=== PATIENT | female | born 1935 | race Caucasian/White ===

== ENCOUNTER 2018-09-19 09:40 | Inpatient (IN) ==
[2018-09-19] MEDS ORDERED: DUONEB (A & A) INH ONE (09:51)
--- NOTE | 2018-09-19 10:13 | Diag Imaging Result Doc PS360 ---
EXAM: CHEST-PORTABLE - 09/19/2018 HISTORY: sob TECHNIQUE: Portable chest COMPARISON: 09/14/2018 FINDINGS: There is cardiomegaly similar to prior. There is transvenous cardiac pacemaker again seen. There is mild interstitial edema. There are mild basilar edema and small bilateral pleural effusions. There is no pneumothorax identified. IMPRESSION: Findings which are suggestive of mild congestive heart failure. Electronically signed by Dev Tadeo 09/19/2018 10:11 AM
[2018-09-19 10:14] LABS: BE 4.6 mmoll (-3.0-3.0); BLOOD TYPE ARTERIAL; HCO3-(ACT) 28.4 mmoll (20.0-26.0); METHB 1.2 % (0.0-1.5); O2(CT) 20.5 mL/dL (15.0-23.0); O2HB 94.2 % (95.0-99.0); PCO2(98.6) 42 mmHg (35-45); PO2(98.6) 75 mmHg (60-100); SAMPLE BLOOD; SAO2 97.3 % (95.0-100.0); THB 15.5 g/dL (11.5-17.4); pH(98.6) 7.45 (7.35-7.45)
[2018-09-19 10:17] LABS: ALLEN TEST YES; MODALITY ROOM AIR
[2018-09-19 10:23] LABS: BASO# 0.04 X1000 (0.0-0.2); BASO% 0.6 % (0.0-0.8); EOS# 0.12 X1000 (0.0-0.7); EOS% 1.7 % (0.0-10.0); HEMATOCRIT 44.8 % (37.0-47.0); HEMOGLOBIN 14.4 g/dL (12.0-16.0); IMM GRAN# 0.03 X1000 (0.0-0.04); IMM GRAN% 0.4 % (0.0-0.5); LYMPH# 2.04 X1000 (1.2-3.4); LYMPH% 29.4 % (20.5-51.1); MCH 30.1 PG (27-31); MCHC 32.1 g/dL (33-37); MCV 93.5 FL (81-99); MONO# 0.76 X1000 (0.11-0.59); NEUT# 3.95 X1000 (1.4-6.5); NEUT% 56.9 % (42.2-75.2); PLT 193 X1000 (130-400); RBC 4.79 XMIL (4.2-5.4); RDW 15.3 % (11.5-14.5); WBC 6.94 X1000 (4.8-10.8)
[2018-09-19] MEDS ORDERED: LEVAQUIN 500 MG/D5W 500 MG/100 ML IVPB IV ONE (10:34)
[2018-09-19] MEDS ORDERED: LASIX IV ONE (10:35)
--- NOTE | 2018-09-19 10:52 | PROVIDER DOCUMENTATION ---
This chart was entered by Cory Car Scribe, acting as scribe for Carla Car MD. HPI-Respiratory General - General Chief Complaint: Return/Recheck Stated Complaint: SOB Time Seen by Provider: 09/19/18 09:55 Source: patient, EMS Allergies/Adverse Reactions: Patient Allergies Allergy/AdvReac Type Severity Reaction Status Date / Time No Known Allergies Allergy Verified 10/07/17 14:44 Home Medications: Home Medication List Medication Instructions Recorded Confirmed Last Taken Type Acyclovir 800 mg PO TID 10/07/17 10/07/17 Unknown History Allopurinol 100 mg PO DAILY 10/07/17 10/07/17 Unknown History Amiodarone [Cordarone] 200 mg PO DAILY 10/07/17 10/07/17 Unknown History Atorvastatin Calcium 20 mg PO HS 10/07/17 10/07/17 Unknown History Chlordiazepoxide [Librium] 10 mg PO BID 10/07/17 10/07/17 Unknown History Cholecalciferol (Vit D3) [Vitamin 1,000 unit PO DAILY 10/07/17 10/07/17 Unknown History D] Digoxin 125 mcg PO DAILY 10/07/17 10/07/17 Unknown History Diltiazem HCl [Cardizem] 120 mg PO DAILY 10/07/17 10/07/17 Unknown History Levothyroxine [Synthroid] 25 microgm PO DAILY 10/07/17 10/07/17 Unknown History Methylprednisolone 4 mg PO DIRECTED 10/07/17 10/07/17 Unknown History Metoprolol Succinate E.r. [Toprol 50 mg PO BID 10/07/17 10/07/17 Unknown History Xl] Mineral Oil/Petrolatum Op Oint 1 applicatn OPH PRN PRN 10/07/17 10/07/17 Unknown History [Lacri-Lube Oph Oint] Nitrofurantoin Monohyd/M-Cryst 100 mg PO BID #20 cap 10/07/17 Unknown Rx [Macrobid 100 mg Capsule] [place]-3 Fatty Acids/Fish Oil [Fish 1,000 mg pe PO BID 10/07/17 10/07/17 Unknown History Oil 1,000 mg Capsule] Potassium Chloride 20 meq PO DAILY 10/07/17 10/07/17 Unknown History Spironolactone 25 mg PO DAILY 10/07/17 10/07/17 Unknown History Warfarin [Coumadin] 5 mg PO QHS 10/07/17 10/07/17 Unknown History Furosemide 40 mg PO BID #60 tab 09/14/18 Unknown Rx Guaifenesin/Codeine Phosphate 5 ml PO Q6H PRN #120 ml 09/14/18 Unknown Rx [Codeine-Guaifen 10-100 mg/5 ml] - History of Present Illness-Resp Nature of Presenting Problem: 83 yof hx of afib, CHF, HTN, HLD presents to ed with cc of sob. Reports was seen on 09/14/17 at [facility] with cough and pleural effusion and acute on chronic CHF reports still not feeling any better and getting worse. States has a Nebulizer treatment at home but medication is so hasn't been using it. EMS reports giving pt Albuterol tx enroute. 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 Pt's fam tells me pt able to sit up and breath 1st night out of hosp, but unabl etyo breath well even sitting up last night. Tells me there was no change in her routine medications including lasix. Severity in ED: reports: mild Onset/Duration: reports: 6 days ago Timing: reports: still present Context: reports: out of meds Cough Quality/Degree: reports: productive cough Episode Frequency: occasional episodes Current Respiratory Medication Therapy: Initiated see nurses note Associated Symptoms: reports: cough, shortness of breath, wheezing Similar Symptoms Previously?: Yes Recently seen or treated by another doctor?: Yes (09/14/17 at ER) Review of Systems - Adult - REVIEW OF SYSTEMS - ADULT Constitutional: denies: chills, fever, fatique Eyes: reports: no symptoms reported Ears, Nose, Mouth & Throat: denies: ear pain, sinus problem, throat pain Cardiovascular: denies: chest pain, irregular heart rate, orthopnea, syncope Respiratory: reports: cough, dyspnea on exertion, shortness of breath, wheezing . denies: pleurisy Gastrointestinal: denies: abdominal pain, diarrhea, nausea, vomiting Genitourinary: reports: no symptoms reported Musculoskeletal: reports: no symptoms reported Integumentary: reports: no symptoms reported Neurological: denies: dizziness/vertigo, headache/migraines, numbness, paresthesia, seizure, slurred speech Psychiatric: reports: no symptoms reported Endocrine: reports: no symptoms reported Hematologic/Lymphatic: reports: no symptoms reported Allergic/Immunologic: reports: no symptoms reported All Other Systems: Reviewed and Negative Past History - Adult - PAST MEDICAL HISTORY-ADULT Review of Records: reports: Nursing Assessment Review, Medications Reviewed Major Childhood Illnesses: reports: denies history Cardiovascular: reports: A-Fib, CAD, CHF, HTN, hyperlipidemia Respiratory: reports: denies history Gastrointestinal: reports: denies history Obstetrical/Gynecological: reports: denies history Genitourinary: reports: denies history Musculoskeletal: reports: denies history Neurological: reports: CVA (x 2 in 2006) Psychiatric: reports: anxiety Endocrine/Immune: reports: denies history Other Conditions: reports: denies history - PRIOR SURGERIES/PROCEDURES Surgical/Procedure History: reports: appendectomy, cholecystectomy, pacemaker, hysterectomy, hernia repair, back/neck - PRIOR HOSPITALIZATIONS Prior Hospitalizations: reports: for other non-related - IMMUNIZATION STATUS Childhood Immunizations: See Nurse Assessment Flu Vaccine: See Nurse Assessment - FAMILY HISTORY Family History: reviewed, not pertinent - SOCIAL HISTORY Smoking: non-smoker Substance Use: none/never Physical Exam-General - PHYSICAL EXAM-ADULT Initial Vital Signs Reviewed: Yes - CONSTITUTIONAL General Appearance: appears well, alert, mild distress - EYES Eyes: PERRL/EOMI, pink conjunctivae - HEAD, EARS, NOSE, MOUTH & THROAT HENMT: moist mucous membranes - NECK Neck: non-tender, full range of motion, supple, normal inspection - RESPIRATORY Respiratory: chest non-tender, no pleuratic chest pain, no respiratory distress , no accessory muscle use, wheezing (moderate expiratory). negative: crackles, rales, rhonchi, retractions - CARDIOVASCULAR Cardiovascular: regular rate, rhythm - GASTROINTESTINAL (ABDOMEN) Abdominal Exam: normal bowel sounds, non tender, soft, no organomegaly, no pulsatile mass - MUSCULOSKELETAL Back Exam: normal inspection Extremity: normal range of motion, non-tender, swelling (BLE 1+) - SKIN Integumentary: normal color, normal turgor, warm/dry - NEUROLOGIC Neurologic: grossly normal - PSYCHIATRIC Psych/Mental Status: normal mood/affect, normal thought content, normal thought process, oriented x 3 Progress - PLAN OF CARE/RESULTS Progress/Plan/Lab Results: Vital Signs - 8 hr 09/19/18 09:44 09/19/18 10:00 Temperature 98.1 F Pulse Rate 74 70 Respiratory Rate 20 21 Blood Pressure 153/99 O2 Sat by Pulse Oximetry 97 97 Laboratory Results - last 24 hr 09/19/18 09/19/18 09:47 10:15 WBC 6.94 RBC 4.79 Hgb 14.4 Hct 44.8 MCV 93.5 MCH 30.1 MCHC 32.1 L RDW Std Deviation 15.3 H Plt Count 193 MPV 11.0 H Immature Gran % (Auto) 0.4 Neut % (Auto) 56.9 Lymph % (Auto) 29.4 Peach % (Auto) 11.0 H Eos % (Auto) 1.7 Baso % (Auto) 0.6 Immature Gran # (Auto) 0.03 Neut # (Auto) 3.95 Lymph # (Auto) 2.04 Peach # (Auto) 0.76 H Eos # (Auto) 0.12 Baso # (Auto) 0.04 Specimen Type ARTERIAL Sample Site R RADIAL pH 7.45 pCO2 42 pO2 75 HCO3 28.4 H Base Excess 4.6 H Oxyhemoglobin 94.2 L ABG O2 Sat (Calculated) 20.5 ABG O2 Saturation 97.3 ABG Carboxyhemoglobin 1.90 ABG Methemoglobin 1.2 Doe Test YES A-a O2 Difference 22.0 Total Hemoglobin 15.5 Lactate 1.50 Blood Gas Modality ROOM AIR FiO2 % 21.0 Orders Category Date Time Status Admit - [facility] Routine AdmDCTranf 09/19/18 10:43 Ordered Resuscitation Status Routine Care 09/19/18 10:43 Ordered CHEST-PORTABLE [RAD] Stat Exams 09/19/18 09:52 Completed ABG [RESP] Routine Lab 09/19/18 09:47 Completed BLOOD CULTURE [BLDCUL] Stat Lab 09/19/18 10:28 Ordered CBC WITH DIFF [HEME] Stat Lab 09/19/18 10:15 Completed LACTATE, PLASMA [CHEM] Stat Lab 09/19/18 10:43 Ordered PRO B-NATRIURETIC PEPTIDE Stat Lab 09/19/18 10:42 Ordered Albuterol 2.5MG/Ipratrop 0.5MG [Duoneb (A & A)] Med 09/19/18 09:51 Discontinued 3 ml INH NOW ONE Furosemide [Lasix] Med 09/19/18 10:35 Discontinued 20 mg IV NOW ONE Levofloxacin 500 mg/D5w [Levaquin 500 mg/D5w] Med 09/19/18 10:34 Active 500 mg in 100 ml IV NOW Aerosol Treatments Routine Oth 09/19/18 09:52 Active Aerosol Treatments Stat Oth 09/19/18 09:52 Active EKG [EKG] Stat Ther 09/19/18 09:52 Ordered Transfer/Admit Order [TRANSFER] Routine Transfer 09/19/18 10:42 Ordered Result Diagrams: 09/19/18 10:15 - XRAY 1 XRAY: Bilateral XRAY Study: Chest Impression: Abnormal (cardiomegaly, pacemaker, cannot exclude infiltrate in right base- per carla car), Discussed w/Radiology (cannot exclude pna) Comparison with other Films: changes noted (worse than one compared to 09/14/17) - CONSULTS/PCP/HOSPITALIST Notification #1 *Consult/PCP/Hospitalist*: Dr. Velasco Time Discussed: 10:38 Consult Disposition: Admit Departure - Departure Date of Disposition Decision: 09/19/18 Time of Disposition Decision: 10:34 DIAGNOSIS: CHF exacerbation, SOB (shortness of breath), Wheezing Disposition: ADMITTED INPATIENT 09 Certified Medical Emergency: Emergent Condition: Stable Referrals and Follow-Ups: Jennifer Clark [Primary Care Provider] - - Critical Care Note This patient required my direct & personal management of CC.: No Attestation - Physician/ OTTO Attestation Patient care was provided by Advanced Practice Provider:: No The physician spent face to face time with patient:: Yes Advanced Practice Provider documentation review:: Supervising physician onsite and consulted in the evaluation and care of this patient. The physician did have a face to face encounter with the patient. This chart was documented by the indicated scribe, (Cory Car Scribe) and accurately reflects the services I performed and decisions made by me, Carla Car MD, as attested by the provider's signature.
[2018-09-19 12:10] LABS: CALCIUM 8.7 mg/dL (8.8-10.2); CREATININE 1.4 mg/dL (0.5-0.9); POTASSIUM 4.4 mmol/L (3.5-5.1)
--- NOTE | 2018-09-19 15:23 | HISTORY AND PHYSICAL ---
PRIMARY CARE PHYSICIAN: Dr. Jennifer Clark. HIGH SCHOOL SCIENCE TUTOR: Dr. Yi. CHIEF COMPLAINT: Shortness of breath and a nonproductive cough. HISTORY OF PRESENTING ILLNESS: This is an 83-year-old female who presents to [facility] ER with complaints of shortness of breath and a nonproductive cough. She states she was seen at [facility] ER last Wednesday and was told she had some "fluid around her heart," was given a cough syrup and they increased her Lasix from 20 mg daily to 40 mg daily and they also increased her spironolactone to twice daily, but I do not know that dosage. She states she took the medications as prescribed and has had no improvement in her shortness of breath and cough. Today when she arrived, she was saturating 97% on room air. ER documentation read her chest x-ray as could not exclude an infiltrate in the right base, but that she also had cardiomegaly. Radiology read chest x-ray findings that are suggestive of mild congestive heart failure, so she is being admitted to the medical unit for further evaluation and treatment. PAST MEDICAL HISTORY: Atrial fibrillation, congestive heart failure, hypertension, anxiety, hyperlipidemia, coronary artery disease, CVA x2 in 2006 and chronic kidney disease stage III-B. PAST SURGICAL HISTORY: Appendectomy, cholecystectomy, pacemaker placement, hysterectomy, hernia repair, and a back and neck surgery. FAMILY HISTORY: Reviewed and noncontributory. SOCIAL HISTORY: She lives with family. Denies any tobacco, alcohol or illicit drug use. ALLERGIES: She has no known drug allergies. HOME MEDICATIONS: A current list will be obtained and reviewed, and we will restart after they have been reconciled. Order placed for Nursing to update and confirm home medications. LABORATORY DATA: Showed a white blood cell count of 6.94, hemoglobin 14.4, hematocrit 44.8, platelets 193,000. ABG with a pH of 7.45, pCO2 of 42, PO2 75, bicarb 28.4. Sodium 138, potassium 4.4 chloride 103, CO2 21, BUN of 19, creatinine 1.4, glucose 138. ProBNP of 1939, plasma lactate of 2.3. Chest x-ray: Again, per ER read could not exclude a right lower lobe pneumonia, Impression from Radiology read findings which are suggestive of mild congestive heart failure. REVIEW OF SYSTEMS: She denied any fever, chills, blurred vision, dizziness, chest pain. She has had a nonproductive cough, shortness of breath, wheezing. Denied any abdominal pain, constipation, diarrhea, burning or hurting with urination. PHYSICAL EXAMINATION: VITAL SIGNS: On arrival, she had a temperature of 98.1, pulse 74, respirations 20, blood pressure 153/99, saturating 97% on room air. GENERAL: This is an 83-year-old female who is sitting up in the bed and answers questions appropriately. HEENT: Normocephalic, atraumatic. Normal ENT inspection. Oropharynx and nares are clear. EYES: Pupils are equal, round and reactive to light and accommodation. Extraocular movements are intact. NECK: Normal inspection. Normal range of motion. LUNGS: With wheezing, expiratory throughout entire posterior lung kaplan. Equal lung expansion. Chest wall movement noted. HEART: Regular rate and rhythm. No murmurs, rubs or gallops. ABDOMEN: Soft, nontender, nondistended. Bowel sounds are present x 4 quadrants. MUSCULOSKELETAL: She has 5/5 strength x 4. EXTREMITIES: She does have 1+ edema to her bilateral lower extremities. NEUROLOGIC: The cranial nerves 2-12 appear grossly intact. ASSESSMENT: 1. Acute congestive heart failure exacerbation. 2. Bronchitis. It was suspected in the ER that she had a right lower lobe pneumonia, but radiologist did not find a pneumonia. 3. Shortness of breath. 4. Hypertension. PLAN: She has been admitted to the medical unit. She has an indwelling Burgos catheter. We will update and confirm home medications per Nursing and then will review and restart as appropriate. We will check an echocardiogram. Blood cultures x 2 are pending. We will obtain a UA with C S as indicated. Place her on Levaquin 500 mg IV q. 24, Lasix 40 mg IV daily, DuoNeb q.4 hours. Further orders after being seen by attending. Dictated by BRIANNA Roberts for Wander Velasco MD cc: BRIANNA Roberts MD Faye Wilson, MD
[2018-09-19] MEDS ORDERED: TEARISOL OPH SOLUTION OPH PRN (17:09)
[2018-09-19] MEDS: DUONEB (A & A) INH SCH ×3 (17:19→23:01)
[2018-09-19 17:37] LABS: BILIRUBIN URINE NEGATIVE (NEGATIVE); BLOOD URINE 1+ (NEGATIVE); CLARITY CLEAR (CLEAR); COLOR YELLOW; GLUCOSE URINE NEGATIVE (NEGATIVE); KETONE URINE NEGATIVE (NEGATIVE); LEUKOCYTES URINE 1+ (NEGATIVE); NITRITE URINE NEGATIVE (NEGATIVE); PH URINE 6.5; PROTEIN URINE NEGATIVE (NEGATIVE); UROBILINOGEN URINE 1 mg/dL
[2018-09-19 17:40] LABS: URINE RBC <10 /HPF (<10)
[2018-09-19 17:41] LABS: URINE BACTERIA 1+ /HFP; URINE CAST NONE SEEN /LPF; URINE CRYSTAL NONE SEEN /HPF; URINE EPITHELIAL CELLS <10 /HPF (<10); URINE SMALL ROUND CELLS TRANSITIONAL PRESENT; URINE SOURCE CATH; URINE YEAST NONE SEEN /HPF
--- NOTE | 2018-09-19 18:29 | ECHO REPORT ---
ORDER DATE: 09/19/2018 INDICATIONS: An 83-year-old female, CHF, pacemaker. M-MODE MEASUREMENTS: Left ventricle end diastole: 5.8 cm. Left ventricle end systole: 5.1 cm. Posterior wall: 1.1 cm. Interventricular septum: 1.1 cm. Left atrium: 4.4 cm. Aortic root: 3.4 cm. SUMMARY OF 2-DIMENSIONAL IMAGIN. This study is technically very limited and of limited diagnostic quality. Definity was added to optimize visualization of endocardium. 2. The left ventricular chamber appears to be dilated. Systolic function is significantly impaired. Ejection fraction estimated at 20% to 25%. There were multiple areas of wall motion abnormality. 3. Pacemaker is noted on the right side of the heart. 4. The right ventricle appears to be mildly enlarged. 5. The atria appear to moderately enlarged. 6. Aortic valve shows some thickening of the cusp. Color flow mapping indicates mild degree of regurgitation. 7. Mitral valve shows mild to moderate degree of regurgitation. 8. Pulse wave Doppler of mitral inflow shows single filling wave. The patient is in atrial fibrillation. 9. Tricuspid valve shows mild degree of regurgitation. 10.Pulmonary artery pressure estimated at 37 mmHg. Pulmonic valve is unremarkable with mild degree of regurgitation. 11.There is no pericardial effusion. Clinical correlation recommended. cc: MD Mariana Delarosa CRNP
[2018-09-19 19:04] LABS: INR 2.39; PROTIME 27.2 Seconds (11.0-16.0)
[2018-09-19] MEDS: LIBRIUM PO SCH (21:31)
[2018-09-19] MEDS: LIPITOR PO SCH (21:31)
[2018-09-19] MEDS: COUMADIN PO SCH (21:31)
[2018-09-19] MEDS: FISH OIL CONCENTRATE PO SCH (21:32)
[2018-09-19] MEDS: ALDACTONE PO SCH (21:32)
--- NOTE | 2018-09-19 21:32 | HISTORY AND PHYSICAL ---
ADDENDUM: She presented with shortness of breath and nonproductive cough. She was at [facility] and told she had some fluid around her heart and she was given Tessalon Perles I think. They did increase her Lasix and spironolactone. She did not improve. Came back for evaluation today and still has bilateral lower lobe infiltrates. I think her primary trench digger helper Dr. Yi also encouraged her to come in for evaluation but she definitely has heart failure-type symptoms, interstitial edema. Now her proBNP is 1939, creatinine is 1.4 so she will be admitted, placed on IV diuretics, digoxin. Bronchitis. We will continue empiric antibiotics, breathing treatments and follow. Repeat her chest x-ray in the next 1 to 2 days to evaluate for improved pulmonary edema. cc: Wander Velasco MD
[2018-09-20] MEDS: DUONEB (A & A) INH SCH ×6 (03:00→22:46)
[2018-09-20] MEDS: SYNTHROID PO SCH (06:07)
[2018-09-20 06:50] LABS: BASO# 0.02 X1000 (0.0-0.2); BASO% 0.3 % (0.0-0.8); EOS% 1.3 % (0.0-10.0); IMM GRAN# 0.02 X1000 (0.0-0.04); IMM GRAN% 0.3 % (0.0-0.5); LYMPH# 1.86 X1000 (1.2-3.4); LYMPH% 23.7 % (20.5-51.1); MCH 29.9 PG (27-31); MCHC 31.8 g/dL (33-37); MONO# 0.76 X1000 (0.11-0.59); MONO% 9.7 % (1.7-9.3); MPV 11.5 FL (7.4-10.4); NEUT# 5.08 X1000 (1.4-6.5); NEUT% 64.7 % (42.2-75.2); PLT 197 X1000 (130-400); RBC 4.68 XMIL (4.2-5.4); RDW 15.4 % (11.5-14.5); WBC 7.84 X1000 (4.8-10.8)
[2018-09-20 07:00] LABS: CALCIUM 8.6 mg/dL (8.8-10.2); CREATININE 1.2 mg/dL (0.5-0.9); POTASSIUM 3.7 mmol/L (3.5-5.1)
[2018-09-20] MEDS ORDERED: LASIX PO SCH (09:00)
[2018-09-20] MEDS: ALDACTONE PO SCH ×2 (10:54→20:38)
[2018-09-20] MEDS: LIBRIUM PO SCH ×2 (10:54→20:37)
[2018-09-20] MEDS: LEVAQUIN 500 MG/D5W 500 MG/100 ML IVPB IV SCH (10:54)
[2018-09-20] MEDS: FISH OIL CONCENTRATE PO SCH ×2 (10:54→20:37)
[2018-09-20] MEDS: CORDARONE PO SCH (10:54)
[2018-09-20] MEDS: LASIX IV SCH (10:55)
[2018-09-20] MEDS: ZYLOPRIM PO SCH (10:55)
[2018-09-20] MEDS: VITAMIN D PO SCH (10:55)
[2018-09-20] MEDS: LANOXIN PO SCH (11:06)
[2018-09-20] MEDS ORDERED: ROBITUSSIN-AC PO PRN (17:58)
--- NOTE | 2018-09-20 19:45 | PROGRESS NOTE ---
DATE: 09/20/2018 Today she is having a lot of coughing which is affecting her. Other than that seems to be doing okay. OBJECTIVE: Blood pressure is 134/57, heart rate of 70, respiratory 19, temperature 97.6 degrees.Cardiovascular: Regular rate and rhythm. Pulmonary: Bilateral breath sounds, clear to auscultation. GI: Was soft, nontender, nondistended. Bowel sounds are positive. Extremities: No clubbing or cyanosis. Lymphatic: No peripheral edema. Neurological: Nonfocal. LABORATORY DATA: White count 7, hemoglobin and hematocrit 14 and 44, platelets 197,000. Basic creatinine of 1.2, TSH of 4.6. PROBLEM LIST: 1. Congestive heart failure exacerbation. Her ejection fraction has dropped a little bit from her last echocardiogram 20 to 25 percent. She still has a lot of wall motion abnormalities. She dropped from 30% last echocardiogram here looks like it was in 2013. There [facility]. I am going to continue diuresing, her x-ray is shows some congestive heart failure, repeat her chest x-ray tomorrow and follow. 2. Atrial fibrillation appears to be controlled. She is on amiodarone and anticoagulated with Coumadin, she is also on digoxin. 3. Bronchitis, pneumonia. She is on Levaquin. We will continue to monitor. Curiously she is not on an REE inhibitor. Her kidney function is a little bit off but not drastically so not sure if she is a candidate for Entresto, will see what cardiology says. I guess she has had some renal insufficiency that is maybe why they have not but it is actually pretty stable. I am just going to start some low-dose losartan and see how she does. She is also on Aldactone. 4. Disposition we will continue treatment and follow closely. Hopefully will be able discharge home looking in the rehab but when to start working on getting her up 1st end dictation. cc: Wander Velasco MD
[2018-09-20] MEDS: COZAAR PO SCH (19:49)
[2018-09-20] MEDS: COUMADIN PO SCH (20:38)
[2018-09-20] MEDS: LIPITOR PO SCH (20:38)
[2018-09-21] MEDS: DUONEB (A & A) INH SCH ×6 (03:32→23:38)
[2018-09-21] MEDS: SYNTHROID PO SCH (06:07)
[2018-09-21 07:59] LABS: CALCIUM 8.6 mg/dL (8.8-10.2); CREATININE 1.2 mg/dL (0.5-0.9); POTASSIUM 3.6 mmol/L (3.5-5.1)
[2018-09-21 08:01] LABS: BASO# 0.02 X1000 (0.0-0.2); BASO% 0.2 % (0.0-0.8); EOS# 0.08 X1000 (0.0-0.7); EOS% 0.9 % (0.0-10.0); HEMATOCRIT 42.1 % (37.0-47.0); HEMOGLOBIN 13.5 g/dL (12.0-16.0); IMM GRAN# 0.03 X1000 (0.0-0.04); IMM GRAN% 0.3 % (0.0-0.5); LYMPH# 1.28 X1000 (1.2-3.4); LYMPH% 14.9 % (20.5-51.1); MCH 29.8 PG (27-31); MCHC 32.1 g/dL (33-37); MCV 92.9 FL (81-99); MONO# 0.75 X1000 (0.11-0.59); MONO% 8.7 % (1.7-9.3); MPV 11.7 FL (7.4-10.4); NEUT# 6.44 X1000 (1.4-6.5); PLT 205 X1000 (130-400); RBC 4.53 XMIL (4.2-5.4); RDW 15.2 % (11.5-14.5)
--- NOTE | 2018-09-21 08:03 | Diag Imaging Result Doc PS360 ---
EXAM: CHEST-PORTABLE - 09/21/2018 HISTORY: dyspnea TECHNIQUE: Portable chest COMPARISON: 09/19/2018 FINDINGS: There is stable cardiomegaly. There is mild pulmonary edema which appears to have decreased. There is no substantial pleural effusion or pneumothorax identified. IMPRESSION: Mild congestive heart failure, with some interval improvement compared to prior. Electronically signed by Dev Tadeo 09/21/2018 8:00 AM
[2018-09-21 08:17] LABS: INR 2.77; PROTIME 30.6 Seconds (11.0-16.0)
[2018-09-21] MEDS: VITAMIN D PO SCH (11:00)
[2018-09-21] MEDS: LEVAQUIN 500 MG/D5W 500 MG/100 ML IVPB IV SCH (11:21)
[2018-09-21] MEDS: COZAAR PO SCH (11:21)
[2018-09-21] MEDS: ZYLOPRIM PO SCH (11:21)
[2018-09-21] MEDS: CORDARONE PO SCH (11:21)
[2018-09-21] MEDS: LIBRIUM PO SCH ×2 (11:22→20:06)
[2018-09-21] MEDS: FISH OIL CONCENTRATE PO SCH ×2 (11:22→20:06)
[2018-09-21] MEDS: LASIX IV SCH ×2 (11:22→18:00)
[2018-09-21] MEDS: ALDACTONE PO SCH ×2 (11:22→20:06)
[2018-09-21] MEDS: LANOXIN PO SCH (14:27)
[2018-09-21] MEDS: TESSALON PO PRN (18:00)
[2018-09-21] MEDS ORDERED: TUSSIONEX LIQUID PO ONE (18:17)
[2018-09-21] MEDS: LIPITOR PO SCH (20:06)
[2018-09-21] MEDS: TUSSIONEX LIQUID PO SCH (20:06)
[2018-09-21] MEDS: COUMADIN PO SCH (20:07)
[2018-09-22] MEDS: DUONEB (A & A) INH SCH ×6 (03:04→22:41)
--- NOTE | 2018-09-22 03:52 | PROGRESS NOTE ---
DATE: 09/21/2018 SUBJECTIVE: Patient still does not feel very well, mostly because of her cough. Her cough is terrible and is not well controlled but her breathing appears okay and she is not currently on any oxygen, which seems to be okay. OBJECTIVE: Cardiovascular: Regular rate and rhythm. Pulmonary: Bilateral breath sounds diminished at the bases. Rales at the bases. GI: Soft, nontender, nondistended. Bowel sounds were positive. Laboratory Data: White count 8, hemoglobin and hematocrit 13 and 42, platelets 205,000. INR is 2.7. Creatinine 1.2. Her TSH is high at 4.6 and her free T4 is high at 1.92. PROBLEM LIST: 1. Acute systolic congestive heart failure exacerbation. We will increase her diuretics. Her fluid really has not improved that much. Check proBNP in the morning. I have consulted cardiology. They are going to reassess. She had a slight drop in her ejection fraction and she has multiple wall motion abnormalities. We will see if there are any ischemic concerns at this point. 2. Bronchitis, possible right lower lobe pneumonia. She is on Levaquin and breathing treatments. We will adjust her antitussives. 3. Hypothyroidism. Interestingly enough, she is on thyroid medicine and it may be overreactive so I am going to drop her dose to 25 but curiously, her TSH is high, not low, but her T4 is low. This is very odd but I am going to adjust her TSH down. 4. Disposition. Pending her clinical status. She is not very ambulatory. She is also on amiodarone so I am not sure if that is affecting her thyroid function. Cardiology may need to address that. We will get a physical therapy evaluation and follow. She does not seem very active and she may end up needing rehab. I have not approached this with the family just yet, but we will see how she does with physical therapy and then go from there. 5. Atrial fibrillation, is rate controlled. She is on amiodarone. Again, we may have to adjust that because of her thyroid issues. cc: Wander Velasco MD
[2018-09-22] MEDS: LASIX IV SCH ×2 (05:13→19:01)
[2018-09-22] MEDS: SYNTHROID PO SCH (06:10)
[2018-09-22] MEDS ORDERED: CHLORASEPTIC SPRAY MT PRN (06:11)
[2018-09-22 06:39] LABS: BASO# 0.03 X1000 (0.0-0.2); BASO% 0.4 % (0.0-0.8); EOS# 0.16 X1000 (0.0-0.7); EOS% 1.9 % (0.0-10.0); HEMATOCRIT 44.6 % (37.0-47.0); HEMOGLOBIN 14.6 g/dL (12.0-16.0); IMM GRAN# 0.02 X1000 (0.0-0.04); IMM GRAN% 0.2 % (0.0-0.5); LYMPH# 1.61 X1000 (1.2-3.4); LYMPH% 18.9 % (20.5-51.1); MCH 30.2 PG (27-31); MCHC 32.7 g/dL (33-37); MCV 92.1 FL (81-99); MONO# 0.76 X1000 (0.11-0.59); MONO% 8.9 % (1.7-9.3); NEUT# 5.94 X1000 (1.4-6.5); NEUT% 69.7 % (42.2-75.2); PLT 218 X1000 (130-400); RBC 4.84 XMIL (4.2-5.4); RDW 15.5 % (11.5-14.5); WBC 8.52 X1000 (4.8-10.8)
[2018-09-22 06:58] LABS: CALCIUM 9.3 mg/dL (8.8-10.2); CREATININE 1.3 mg/dL (0.5-0.9); POTASSIUM 3.7 mmol/L (3.5-5.1)
[2018-09-22 07:05] LABS: INR 2.68; PROTIME 29.8 Seconds (11.0-16.0)
--- NOTE | 2018-09-22 07:33 | CONSULTATION ---
DATE OF CONSULTATION: 09/21/2018 HISTORY: This 83-year-old white female with past history of severe cardiomyopathy, atherosclerotic coronary disease, atrial fibrillation, previous cerebrovascular accident, hypertension, and hyperlipidemia was admitted 2 days ago due to progressive dyspnea symptoms. She has also been having cough, initially productive of white, but more recently yellow sputum. She indicates that she has been having problems with cough for the last month, as well as gradual progression of dyspnea. She has not had any chest pain. She relates that she has had some back discomfort between her spine and left scapula. She had re-evaluation with echocardiography, which demonstrated significant further decrease in her left ventricular ejection fraction. Left ventricular ejection fraction now estimated to be 20% to 25% with multiple areas of wall motion abnormality. She is status post implantable defibrillator. Since admission, she has been treated for congestive heart failure with intravenous Lasix, and is also receiving parental antibiotics to cover possible pulmonary infectious process. She is improving, but still has some problems with cough. She still has shortness of breath with modest activity, but no orthopnea. PAST MEDICAL HISTORY: 1. Chronic systolic heart failure. 2. Severe cardiomyopathy, probably ischemic in origin. 3. Atherosclerotic coronary disease. 4. Atrial fibrillation. The patient is maintained in sinus rhythm with amiodarone. 5. Status post previous cerebrovascular accident with chronic left-sided weakness, more so in the left upper extremity. 6. Chronic kidney disease. 7. Hypertension. 8. Hyperlipidemia. 9. Anxiety. PAST SURGICAL HISTORY: Includes appendectomy, cholecystectomy, implantable defibrillator placement, hysterectomy, hernia repair, unspecified back surgery, and unspecified neck surgery. ALLERGIES: She has no known drug allergies. MEDICATIONS PRIOR TO ADMISSION: As listed. SOCIAL HISTORY: She lives with family in [place]. She does not smoke or use alcohol. She walks with the aid of a cane, but is fairly sedentary. FAMILY HISTORY: Negative for premature coronary disease. REVIEW OF SYSTEMS: Pulmonary: Noteworthy for dyspnea and productive cough. Gastrointestinal: Negative. Constitutional: Negative. There has been no fever. Remainder of review of systems is negative/noncontributory with 14 total systems reviewed. PHYSICAL EXAMINATION: General: This is an obese, elderly, white female in no distress. Vital Signs: Blood pressure 111/53, heart rate 71 and regular, with ECG monitor showing sinus rhythm, oxygen saturation 96% on room air. HEENT: Extraocular movements appear intact. Mucous membranes are moist. Neck: Supple. There appears to be mild elevation in central venous pressure based on inspection of the neck veins. There are no carotid bruits. Chest: Auscultation of the chest reveals a few inspiratory crackles at left base posteriorly. Cardiac: Regular rate and rhythm without appreciable murmur or gallop. Abdomen: Soft, nontender. Extremities: Trace edema. Neurologic: She is alert and fully oriented. Speech is fluent. She demonstrates left upper extremity weakness. IMAGING AND LABORATORY DATA: White blood cell count 8.6, hematocrit 42.1, hemoglobin 13.5, platelet count 205,000. ProTime 30.6, INR 2.77. Sodium 142, potassium 3.6, chloride 103, carbon dioxide 26, BUN 18, creatinine 1.2, glucose 141. ProBNP level on admission 1939. TSH 4.6, free T4 of 1.92. Chest x-ray remarkable for significant cardiomegaly. There is evidence of pulmonary vascular congestion. PERTINENT DATA: A 12-lead ECG is not currently in electronic medical record. IMPRESSION: 1. Acute on chronic systolic heart failure, improving with diuresis. 2. Problematic cough productive of [id number] sputum. Consider possible coexisting pulmonary infectious process. 3. Severe cardiomyopathy with left ventricular ejection fraction of 20% or so, probably ischemic in origin. 4. Atherosclerotic coronary disease. 5. Atrial fibrillation. 6. Status post previous cerebrovascular accident with chronic left-sided weakness, more so in the left upper extremity. 7. Chronic kidney disease. 8. Hypertension. 9. Hyperlipidemia. RECOMMENDATIONS: 1. Agree with diuresis. She appears to be responding with progressive improvement. 2. Agree with treatment with antibiotics to cover possible pulmonary infectious process. 3. Conservative cardiovascular management overall. 4. Continue low-dose losartan and digoxin. cc: Daniel Mcclellan MD
[2018-09-22] MEDS: ZYLOPRIM PO SCH (10:02)
[2018-09-22] MEDS: LIBRIUM PO SCH ×2 (10:03→21:36)
[2018-09-22] MEDS: FISH OIL CONCENTRATE PO SCH ×2 (10:03→21:36)
[2018-09-22] MEDS: CORDARONE PO SCH (10:03)
[2018-09-22] MEDS: ALDACTONE PO SCH ×2 (10:03→21:35)
[2018-09-22] MEDS: VITAMIN D PO SCH (10:03)
[2018-09-22] MEDS: COZAAR PO SCH (10:04)
[2018-09-22] MEDS: LANOXIN PO SCH (10:04)
[2018-09-22] MEDS: LEVAQUIN 500 MG/D5W 500 MG/100 ML IVPB IV SCH (10:05)
[2018-09-22] MEDS: TUSSIONEX LIQUID PO SCH ×2 (10:05→21:36)
--- NOTE | 2018-09-22 11:12 | PROGRESS NOTE ---
DATE: 09/22/2018 SUBJECTIVE: This patient is still coughing. She does not feel good. She seems to be doing about the same compared with yesterday. I will add oxygen to her treatment here. I will ask for a sputum culture as well, since I do believe she has pneumonia, likely at the bases. I will get an x-ray tomorrow, front and lateral view. I will monitor her kidney function closely because she has CKD, and she is on diuretics. OBJECTIVE: Vital Signs: Temperature 98.7 degrees, pulse 70, respiratory rate 18, blood pressure 137/51, oxygen saturation 96 on room air. HEENT: Head normocephalic. No trauma. PERRLA. Neck: Supple. She does have some JVD. Central trachea. Chest: Decreased breath sounds at the bases, with some crackles at the bases as well. Scattered rhonchi, and some expiratory wheezing. Abdomen: Soft, nontender, nondistended. No hepatosplenomegaly. Extremities: Trace lower extremity edema. No clubbing. No cyanosis. Neurological: The patient is alert and oriented x3. No focal deficits. LABORATORY: WBC 8.5, hemoglobin 14.6, hematocrit 44.6 platelets 218. INR 2.6. Sodium 142, potassium 3.7, chloride 101, bicarbonate 27, BUN 19, creatinine 1.3, glucose 139, calcium 9.3. ASSESSMENT AND PLAN: 1. Acute systolic congestive heart failure exacerbation. Continue with diuretics twice a day. We do have a positive balance of 2.6 L in 24 hours, and totally has been 4 L out. I do believe also she has a pneumonia, and she has been treated with antibiotics and breathing treatment. Continue with oxygen as well. 2. Pneumonia, likely right lower lobe pneumonia. Continue with Levaquin and breathing treatment, oxygen supplementation, and cough treatment. 3. Hypothyroidism. We continue with levothyroxine. 4. Atrial fibrillation, rate controlled. Continue with medications per Cardiology Department. 5. Severe cardiomyopathy, likely ischemic. Cardiology on board. Will continue with the same management for now. cc: Brad Moreira MD
[2018-09-22] MEDS: TESSALON PO PRN (15:56)
[2018-09-22] MEDS: DULCOLAX PR SCH (21:34)
[2018-09-22] MEDS: COUMADIN PO SCH (21:36)
[2018-09-22] MEDS: LIPITOR PO SCH (21:36)
[2018-09-23] MEDS: DULCOLAX PR SCH ×2 (02:46→23:08)
[2018-09-23] MEDS: DUONEB (A & A) INH SCH ×6 (03:16→22:42)
[2018-09-23 06:04] LABS: BASO# 0.04 X1000 (0.0-0.2); BASO% 0.4 % (0.0-0.8); EOS# 0.09 X1000 (0.0-0.7); EOS% 0.9 % (0.0-10.0); HEMATOCRIT 47.1 % (37.0-47.0); HEMOGLOBIN 15.2 g/dL (12.0-16.0); IMM GRAN# 0.04 X1000 (0.0-0.04); IMM GRAN% 0.4 % (0.0-0.5); LYMPH# 1.38 X1000 (1.2-3.4); LYMPH% 14.4 % (20.5-51.1); MCH 29.9 PG (27-31); MCHC 32.3 g/dL (33-37); MCV 92.5 FL (81-99); MONO# 0.95 X1000 (0.11-0.59); MONO% 9.9 % (1.7-9.3); MPV 11.3 FL (7.4-10.4); NEUT# 7.08 X1000 (1.4-6.5); PLT 223 X1000 (130-400); RBC 5.09 XMIL (4.2-5.4); RDW 15.8 % (11.5-14.5); WBC 9.58 X1000 (4.8-10.8)
[2018-09-23] MEDS: SYNTHROID PO SCH (06:09)
--- NOTE | 2018-09-23 06:47 | Diag Imaging Result Doc PS360 ---
CHEST-2 VIEWS - 09/23/2018 INDICATION: hypoxia COMPARISON: 09/21/2018 FINDINGS: Stable pacemaker. Stable mild cardiomegaly. Pulmonary vascularity is normal. No infiltrates or edema. There are stable trace pleural effusions. IMPRESSION: No change from prior. Electronically signed by Will Viera 09/23/2018 6:44 AM
[2018-09-23 07:29] LABS: CALCIUM 9.5 mg/dL (8.8-10.2); CREATININE 1.5 mg/dL (0.5-0.9); POTASSIUM 4.3 mmol/L (3.5-5.1)
[2018-09-23] MEDS ORDERED: LASIX IV SCH (09:00)
--- NOTE | 2018-09-23 09:31 | PROGRESS NOTE ---
DATE: 09/23/2018 SUBJECTIVE: This patient is still coughing. As per the patient, she is not feeling good. She says that she is about the same compared with yesterday. She has been treated with antibiotics for possible pneumonia. For her CHF exacerbation, she has been monitored by Cardiology Department. She does have some bilateral crackles mostly at the bases. OBJECTIVE: Vital Signs: Temperature 97.8 degrees, pulse 70, respiratory rate 20, blood pressure 139/74, oxygen saturation 98 on 2 L of nasal cannula. HEENT: Head normocephalic. No trauma. PERRLA. Neck: Supple. She does have some JVD central trachea. Chest: Decreased breath sounds at the bases with some crackles mostly at the bases as well. Scattered rhonchi and some faint expiratory wheezing. Abdomen: Soft, nontender, nondistended. No hepatosplenomegaly. Extremities: Trace lower extremity edema. No clubbing. No cyanosis. Neurological examination: The patient is alert. She is oriented x3. No focal deficits. LABORATORY: WBC 9.5, hemoglobin 15.2, hematocrit 47.1, platelets 223. Sodium 141, potassium 4.3, chloride 99, bicarbonate 24. BUN 26, creatinine 1.5, glucose 162, calcium 9.5, BNP 1031 down from 1939. ASSESSMENT AND PLAN: 1. Acute systolic congestive heart failure exacerbation. Continue with diuresis. Cardiology Department following this patient. Low dose losartan and digoxin. We will monitor the kidney function and urine output so far. We have a negative balance of 4185 liters. 2. Possible right lower lobe pneumonia. Continue Levaquin and breathing treatment, oxygen supplementation and cough treatment. 3. Hypothyroidism. Continue with levothyroxine. 4. Atrial fibrillation, rate controlled. Continue medications per Cardiology Department. 5. Severe cardiomyopathy, likely ischemic. Continue with same treatment. 6. She does have generalized weakness and physical deconditioning. She has a previous history of stroke with left-sided weakness. She is able to walk at home with a cane, but she is not able to use too much the left upper extremity. I will add some multivitamins and Megace to improve her appetite. Likely this patient will need to go to a rehabilitation center upon discharge. cc: Brad Moreira MD
[2018-09-23 09:41] LABS: INR 2.6; PROTIME 29.1 Seconds (11.0-16.0)
[2018-09-23] MEDS: ZYLOPRIM PO SCH (10:17)
[2018-09-23] MEDS: CORDARONE PO SCH (10:17)
[2018-09-23] MEDS: LANOXIN PO SCH (10:18)
[2018-09-23] MEDS: FISH OIL CONCENTRATE PO SCH ×2 (10:18→23:08)
[2018-09-23] MEDS: VITAMIN D PO SCH (10:18)
[2018-09-23] MEDS: COZAAR PO SCH (10:18)
[2018-09-23] MEDS: LEVAQUIN 500 MG/D5W 500 MG/100 ML IVPB IV SCH (10:26)
[2018-09-23] MEDS: LIBRIUM PO SCH ×2 (10:41→23:08)
[2018-09-23] MEDS: MEGACE PO SCH ×2 (10:41→23:08)
[2018-09-23] MEDS: ALDACTONE PO SCH ×2 (10:42→23:07)
[2018-09-23] MEDS: THERA M PLUS PO SCH (10:42)
[2018-09-23] MEDS: TUSSIONEX LIQUID PO SCH ×2 (10:42→23:09)
[2018-09-23] MEDS ORDERED: DULCOLAX PR ONE (14:45)
--- NOTE | 2018-09-23 18:21 | CARDIOLOGY PROGRESS NOTE ---
DATE: 09/23/2018 CHIEF COMPLAINT: Shortness of breath, abdominal distention. SUBJECTIVE: Ms. Waggoner does not feel very well. She has no appetite. Her abdomen is distended. She is constipated. She is still coughing and feeling short of breath. Chest x-ray done today shows cardiomegaly with trace pleural effusions. OBJECTIVE: Blood pressure is 146/64, temperature is 97.3, pulse 73, respirations 20. She is awake, alert, in no distress. HEENT is unremarkable. Chest shows diffuse diminished breath sounds. I do not hear any definite wheezes. Heart sounds are regular and rhythmic. No definite gallop or murmur is noted. Abdomen is distended, tympanitic, somewhat tender. There is a question of subcutaneous node above the umbilicus on the left upper quadrant. Extremities showed trace edema. Pulses diminished. Neurologic: Follows commands. Moves all 4 extremities. DIAGNOSTIC DATA: Telemetry showed activity of a dual chamber pacemaker. Blood work shows hemoglobin 15.2, hematocrit 47.1, white cell count 9580. Sodium is 141, potassium 4.3, BUN is 26, creatinine 1.5. ProBNP has dropped to 1031 from 1939. Her free T4 is elevated. TSH is slightly elevated also. IMPRESSION: 1. The patient presented with increasing dyspnea, possible systolic heart failure. She does have history of low ejection fraction. 2. Coronary heart disease. 3. History of atrial fibrillation. 4. Chronic kidney disease. 5. Previous stroke. 6. Hypertension. 7. Hyperlipidemia. RECOMMENDATIONS: At this point in time, we will continue IV Lasix. We should probably make it 80 mg once a day to get a good effect on her kidneys. We will probably add a low dose of spironolactone as long as we monitor her potassium, she will probably be okay. I discussed with Dr. Landaverde about the abdominal distention, and they will keep an eye on that. She may need a CT scan of the abdomen to make sure that there is no pathology there. We will follow her along. cc: Franklyn Yi MD
[2018-09-23] MEDS: COUMADIN PO SCH (23:08)
[2018-09-23] MEDS: LIPITOR PO SCH (23:08)
[2018-09-24] MEDS: DUONEB (A & A) INH SCH ×6 (03:54→23:10)
[2018-09-24 05:40] LABS: ALLEN TEST YES; BE 6.3 mmoll (-3.0-3.0); BLOOD TYPE ARTERIAL; HCO3-(ACT) 29.7 mmoll (20.0-26.0); METHB 1.2 % (0.0-1.5); MODALITY CANNULA; O2(CT) 20.6 mL/dL (15.0-23.0); O2HB 93.9 % (95.0-99.0); PCO2(98.6) 41 mmHg (35-45); PO2(98.6) 75 mmHg (60-100); SAMPLE BLOOD; SAO2 97.1 % (95.0-100.0); THB 15.6 g/dL (11.5-17.4); pH(98.6) 7.48 (7.35-7.45)
[2018-09-24] MEDS: SYNTHROID PO SCH (06:09)
[2018-09-24 08:03] LABS: BASO# 0.02 X1000 (0.0-0.2); BASO% 0.2 % (0.0-0.8); EOS# 0.07 X1000 (0.0-0.7); EOS% 0.8 % (0.0-10.0); HEMATOCRIT 44.8 % (37.0-47.0); HEMOGLOBIN 15.1 g/dL (12.0-16.0); IMM GRAN# 0.03 X1000 (0.0-0.04); IMM GRAN% 0.3 % (0.0-0.5); LYMPH# 1.52 X1000 (1.2-3.4); LYMPH% 16.4 % (20.5-51.1); MCH 30.6 PG (27-31); MCHC 33.7 g/dL (33-37); MCV 90.7 FL (81-99); MONO# 0.96 X1000 (0.11-0.59); MONO% 10.4 % (1.7-9.3); MPV 11.1 FL (7.4-10.4); NEUT# 6.66 X1000 (1.4-6.5); NEUT% 71.9 % (42.2-75.2); PLT 256 X1000 (130-400); RBC 4.94 XMIL (4.2-5.4); RDW 15.5 % (11.5-14.5); WBC 9.26 X1000 (4.8-10.8)
[2018-09-24 08:07] LABS: INR 2.26
[2018-09-24 08:14] LABS: ALBUMIN 3.1 g/dL (3.5-5.0); CALCIUM 9.1 mg/dL (8.8-10.2); CREATININE 1.3 mg/dL (0.5-0.9); TOTAL PROTEIN 6.5 g/dL (6.3-8.3)
--- NOTE | 2018-09-24 08:43 | Diag Imaging Result Doc PS360 ---
EXAM: CHEST-PORTABLE INDICATION: NG placement TECHNIQUE: One view COMPARISON: 09/23/2018 FINDINGS: The newly placed NG tube projects well below the diaphragm and is assumed to be in the lumen of the stomach in expected position. No new consolidations are identified. Cardiac silhouette is stable. IMPRESSION: Interval placement of NG tube in expected position. Stable chest, otherwise. Electronically signed by Fco Piedra 09/24/2018 8:40 AM
[2018-09-24] MEDS ORDERED: LEVAQUIN PO SCH (09:00)
--- NOTE | 2018-09-24 09:20 | Diag Imaging Result Doc PS360 ---
EXAM: CT ABD/PELVIS W/ORAL CONT ONLY INDICATION: ABD PAIN TECHNIQUE: This exam was performed using automated exposure control, adjustment of mA or kV according to patient size, and/or use of iterative reconstruction technique. COMPARISON: None. FINDINGS: There are small bilateral pleural effusions and mild bibasilar atelectasis. There has been a prior cholecystectomy. The liver, spleen, pancreas, and adrenal glands are essentially unremarkable. There is a punctate nonobstructing intrarenal stone on the right. There is no hydronephrosis. The kidneys are essentially unremarkable, otherwise. There is a Burgos catheter in the urinary bladder and the bladder is nondistended. There has been a prior hysterectomy. There are multiple distended loops of small bowel containing air-fluid levels consistent with small bowel obstruction. The distal small bowel is decompressed. The exact transition point is not clearly identified but is probably somewhere in the right lower quadrant. There is still some gas in the colon. There is trace free fluid layering in the pelvis. No free abdominal gas is identified. The stomach is moderately distended. There is mild body wall anasarca. IMPRESSION: 1.Findings consistent with a high-grade small bowel obstruction as detailed above. 2.Small bilateral pleural effusions and bibasilar atelectasis. 3.Other external/nonacute findings detailed above. Electronically signed by Fco Piedra 09/24/2018 9:18 AM
[2018-09-24] MEDS: CORDARONE PO SCH (12:38)
[2018-09-24] MEDS: ALDACTONE PO SCH (12:38)
[2018-09-24] MEDS: COZAAR PO SCH (12:39)
[2018-09-24] MEDS: FISH OIL CONCENTRATE PO SCH ×2 (12:39→20:41)
[2018-09-24] MEDS: LANOXIN PO SCH (12:40)
[2018-09-24] MEDS: LIBRIUM PO SCH ×2 (12:41→20:41)
[2018-09-24] MEDS: MEGACE PO SCH ×2 (12:41→20:41)
[2018-09-24] MEDS: THERA M PLUS PO SCH (12:41)
[2018-09-24] MEDS: VITAMIN D PO SCH (12:42)
[2018-09-24] MEDS: TUSSIONEX LIQUID PO SCH ×2 (12:42→20:41)
[2018-09-24] MEDS: ZYLOPRIM PO SCH (12:43)
[2018-09-24] MEDS: LASIX IV SCH (13:52)
[2018-09-24] MEDS: ZOSYN 3.375 GM in NS 50 ML IV SCH ×2 (13:52→18:17)
--- NOTE | 2018-09-24 14:35 | PROGRESS NOTE ---
DATE: 09/24/2018 SUBJECTIVE: Patient feels better this morning, although still has some nausea and abdominal discomfort. OBJECTIVE: Vital Signs: Temperature 97.9 degrees, pulse 72 per minute, respiratory rate 20 per minute, blood pressure 145/74, pulse oximetry 94% on 2 L of oxygen via nasal cannula. General: Patient is alert and oriented x3. She does not appear to be in any acute distress. Cardiovascular System: First and second heart sounds are audible without any murmurs or gallops. Respiratory System: No respiratory distress noted. Bilateral lung air entry is moderately decreased, but there are no rales or rhonchi present on auscultation. Gastrointestinal System: Patient is distended and slightly tender all over on deep palpation. Bowel sounds are absent. DIAGNOSTIC DATA: CBC is nondiagnostic and chemistry showed BUN of 25, creatinine 1.3 and glucose level of 133. Rest of the basic metabolic panel is nondiagnostic. AST and ALT were elevated at 69 and 75 respectively. Albumin is slightly low at 3.1. INR is within therapeutic range at 2.26 and arterial blood gases showed pH of 7.48, pCO2 41, and PO2 of 75 on 2 L of oxygen via nasal cannula. Urinalysis that is done on September 19 showed 10 to 20 white blood cells per high-power field. Chest x-ray done yesterday showed NG tube to be in position and also shows stable chest. CT scan of the abdomen and pelvis done yesterday showed high-grade small bowel obstruction with small bilateral pleural effusions and bibasilar atelectasis. IMPRESSION: 1. Acute systolic congestive heart failure secondary to ischemic cardiomyopathy. That is now stable. 2. Possible right lower lobe pneumonia, for which patient has been taking oral levofloxacin. 3. Small bowel obstruction that patient developed yesterday. 4. Chronic atrial fibrillation. 5. Hypothyroidism. 6. Dyslipidemia. 7. Generalized deconditioning. PLAN: Although patient has been getting furosemide and spironolactone for her ischemic cardiomyopathy and acute congestive heart failure, I am going to hold those 2 medications for a day because she is n.p.o. and she has been just diagnosed as having small bowel obstruction. I am going to discontinue levofloxacin and start her on Zosyn for better intra- abdominal antibiotic coverage, and that should cover any pulmonary infections as well. She will continue with losartan, along with amiodarone and warfarin therapy because of her chronic atrial fibrillation that has remained stable during this hospital admission. She has hypothyroidism for which she will continue with thyroid replacement therapy and will also continue with atorvastatin for dyslipidemia. She is having NG tube placed already, and we will continue with low intermittent suction. Surgical consultation has been requested. Physical therapy has also been requested because of her generalized deconditioning, but I believe that will be on hold since she is acutely sick and having small bowel obstruction. Further recommendations regarding small bowel obstruction will be as per surgical consultation. I am going to repeat labs including CBC, CMP, amylase, lipase, and magnesium levels along with PT/INR tomorrow morning. cc: Perry Muse MD MTDD
--- NOTE | 2018-09-24 15:03 | CONSULTATION ---
DATE OF CONSULTATION: 09/24/2018 HISTORY OF PRESENT ILLNESS: Ms. Esme Waggoner is an 83-year-old white female who was hospitalized through the emergency department with congestive heart failure. We were asked to evaluate her because during her hospitalization, she has had increasing abdominal distention and now requires an NG tube. A CT scan suggests abnormal amount of gas intraabdominally. We are asked to see her for possible small bowel obstruction. PAST MEDICAL HISTORY: Atrial fibrillation, congestive heart failure, hypertension, anxiety, hyperlipidemia, coronary artery disease, CVA x2 in 2006, chronic kidney disease stage 2B. PAST SURGICAL HISTORY: Appendectomy, cholecystectomy, pacemaker placement, hysterectomy, hernia repair, and back and neck surgery. SOCIAL HISTORY: She lives with her family. Her was at the bedside. She does not smoke or drink alcohol. ALLERGIES: No known drug allergies. FAMILY HISTORY: Noncontributory. HOME MEDICATIONS: Her list was reviewed. PHYSICAL EXAMINATION: Ms. Esme Waggoner is on her bed. She has an NG tube in place and also a Burgos catheter tube in place. Her abdomen is distended. It is not tender. She has not had a lot of output from her NG tube, but the output appears to be thick. She is awake and cooperative. Her heart rate is 70, blood pressure 131/61, O2 saturation 93%. She is afebrile. She is on IV Levaquin. She was on Coumadin for her atrial fibrillation, but that has been stopped. Her white blood cell count is within normal limits. Her electrolytes are all within normal limits with a BUN of 25, creatinine of 1.3. Liver function tests are essentially normal. IMPRESSION: It must be noted that she was hospitalized with chest pain and shortness of breath, and at the time of hospitalization earlier this week, she did not have any abdominal distention. But during this hospitalization, she has developed abdominal distention requiring NG tube. A CT scan suggests dilated loops of bowel. This could be bowel obstruction or ileus. We will continue NG suction. Her diuretics have been stopped. She has no IV fluids going now. We need to watch that. We will give her ice chips and follow her clinical course. She does need to be active. I think the nurse has been good about getting her up out of bed and even walking in the halls. I discussed her care with the and the patient at the bedside today. cc: Lisha Garcia MD
[2018-09-24] MEDS: LIPITOR PO SCH (20:41)
[2018-09-24] MEDS: DULCOLAX PR SCH (20:42)
[2018-09-24] MEDS: COUMADIN PO SCH (20:42)
[2018-09-24] MEDS ORDERED: COREG PO SCH (21:00)
--- NOTE | 2018-09-25 00:13 | CARDIOLOGY PROGRESS NOTE ---
DATE: 09/24/2018 SUBJECTIVE: Ms. Waggoner reports roughly stable shortness of breath. She is still somewhat dyspneic. She has no orthopnea. PHYSICAL EXAMINATION: Vital Signs: The patient is afebrile. Heart rate is 70. Her blood pressure is 152/64. Most of her systolics appear to be in the 130s to 140s. She does have a history of a low ejection fraction on recent echocardiogram, in the 20 to 25 percent range. General: She is in no acute distress. Cardiovascular: She sounds to be in a regular rate and rhythm. She has no lower extremity edema. No murmurs. Chest: Sounds clear bilaterally. She has no increased work of breathing. Abdomen: Soft, nontender. PERTINENT DATA: She had a CT of her abdomen showing findings consistent with a high-grade small- bowel obstruction, small bilateral pleural effusions. Laboratory data shows a white count of 9.2, hematocrit 44, platelet count of 256,000. Her INR is 2.2. Her sodium is 138, potassium 4, BUN 25, creatinine is 1.3. ASSESSMENT: Ms. Waggoner is an 83-year-old female who appears to have a bowel obstruction presently. She has atrial fibrillation, chronic kidney disease, and systolic heart failure. PLAN: She appears much more euvolemic presently. Her labs appear reasonable. From a medication standpoint, I would likely not make any changes at this time. She remains on amiodarone. In addition, she is on losartan, warfarin, and spironolactone. We certainly could consider initiating a low dose of beta blockade in this patient. I will start her on Coreg at 3.125 b.i.d., considering her reduced ejection fraction. cc: Nicholas Chung MD
[2018-09-25] MEDS: ZOSYN 3.375 GM in NS 50 ML IV SCH ×4 (00:56→19:08)
[2018-09-25] MEDS: DUONEB (A & A) INH SCH ×6 (03:50→22:23)
[2018-09-25] MEDS: SYNTHROID PO SCH (06:11)
[2018-09-25 06:35] LABS: BASO# 0.02 X1000 (0.0-0.2); BASO% 0.2 % (0.0-0.8); EOS# 0.06 X1000 (0.0-0.7); EOS% 0.6 % (0.0-10.0); IMM GRAN# 0.02 X1000 (0.0-0.04); IMM GRAN% 0.2 % (0.0-0.5); LYMPH# 1.35 X1000 (1.2-3.4); LYMPH% 14.3 % (20.5-51.1); MCH 30.3 PG (27-31); MCHC 33.3 g/dL (33-37); MCV 90.9 FL (81-99); MONO# 1.05 X1000 (0.11-0.59); MONO% 11.1 % (1.7-9.3); NEUT# 6.95 X1000 (1.4-6.5); NEUT% 73.6 % (42.2-75.2); PLT 243 X1000 (130-400); RBC 4.95 XMIL (4.2-5.4); RDW 15.7 % (11.5-14.5); WBC 9.45 X1000 (4.8-10.8)
[2018-09-25 06:49] LABS: ALBUMIN 3.3 g/dL (3.5-5.0); CALCIUM 8.9 mg/dL (8.8-10.2); CREATININE 1.5 mg/dL (0.5-0.9); MAGNESIUM 2.3 mg/dL (1.5-2.7); POTASSIUM 3.9 mmol/L (3.5-5.1); TOTAL BILIRUBIN 1.2 mg/dL (0.20-1.00); TOTAL PROTEIN 6.1 g/dL (6.3-8.3)
--- NOTE | 2018-09-25 11:48 | PROGRESS NOTE ---
DATE: 09/25/2018 SUBJECTIVE: Ms. Esme Waggoner is an 83-year-old, white female who was initially admitted on 09/19/2018 with acute congestive heart failure exacerbation and possible right lower lobe pneumonia or bronchitis. Since she has been hospitalized, she has developed abdominal distention and a CT scan performed on 09/23/2018 suggested a small bowel obstruction. For the last 2 days she has had an NG tube placed and her abdomen has been distended. She has not had much out of her NG tube. She states that she has had some flatus since I saw her yesterday. We are trying to treat this conservatively, ileus versus small-bowel obstruction. OBJECTIVE: Vitals: Heart rate 75, blood pressure 134/69, O2 saturation 96%. She is afebrile. She has a Burgos catheter tube in place. Urine output is adequate. Her white blood cell count is normal. Hematocrit is 45%. BUN and creatinine are 26 and 1.5. Liver function tests are essentially normal. It must be noted that she is on p.o. Coumadin because of her heart function. PLAN: We will stop her p.o. Coumadin as long as that is okay with our hospitalist and traffic division commanding officer. If she continues to be distended, she will need to be transferred to [facility] for any surgical intervention. Certainly we will tried to treat this conservatively in hopes that it improves without surgery, cc: Lisha Garcia MD
--- NOTE | 2018-09-25 12:32 | PROGRESS NOTE ---
DATE: 09/25/2018 SUBJECTIVE: Patient denies having any acute complaints this morning. OBJECTIVE: Vital Signs: Temperature 97.6 degrees, pulse 64 per minute, respiratory rate 18 per minute, blood pressure 142/58, pulse oximetry 95% on 2 L of oxygen via nasal cannula. General: Patient is alert and oriented x3. She does not appear to be in any acute distress. Cardiovascular System: First and second heart sounds are audible without any murmurs or gallops. Respiratory System: No respiratory distress noted. Bilateral lung air entry is moderately decreased but there are no rales or rhonchi present on auscultation. Gastrointestinal: Abdomen is distended and slightly tender all over on deep palpation, but bowel sounds remain absent. DIAGNOSTIC DATA: CBC is nondiagnostic. Comprehensive metabolic panel showed BUN of 26 and creatinine 1.5. AST and ALT remain elevated at 66 and 73 respectively. She also had albumin levels of 3.3. INR was within therapeutic range at 2.26. IMPRESSIONS: 1. Acute systolic congestive heart failure secondary to ischemic cardiomyopathy. That has now improved. 2. Possible right lower lobe pneumonia for which patient has been taking levofloxacin and that has been now switched to Zosyn. 3. Small bowel obstruction. 4. Chronic atrial fibrillation with stable ventricular response. 5. Hypothyroidism. 6. Dyslipidemia. 7. Generalized deconditioning. PLAN: The patient's systolic congestive heart failure has been stable and she is euvolemic. Because of which, her furosemide and spironolactone are held. The patient has not been able to take anything by mouth because of small bowel obstruction and has an NG tube attached to low intermittent suction. She is not getting any IV fluids, however, because of her congestive heart failure. We are going to continue with IV antibiotics including Zosyn to cover pneumonia as well as intra-abdominal pathogens. She has chronic atrial fibrillation and her ventricular response has been stable, but she was getting warfarin for thromboembolism prophylaxis and that has been now discontinued. Since her INR is within therapeutic range we are going to give her vitamin K 10 mg IV and repeat INR in the morning tomorrow in anticipation for possible surgery by tomorrow if the patient's small bowel obstruction does not get any better. I did discuss that in detail with Dr. Garcia this morning, who has been following this patient over the weekend. The patient will continue to get her physical therapy for her generalized deconditioning. Since patient has not been able to take p.o. medications, I have switched some of her p.o. medications to IV form. Further recommendations will be given as per hospital course. cc: Perry Muse MD
[2018-09-25] MEDS ORDERED: VITAMIN K 10 MG in NS 50 ML IV ONE (13:00)
[2018-09-25] MEDS: LOPRESSOR IV SCH (13:14)
[2018-09-25] MEDS: COZAAR PO SCH (14:22)
[2018-09-25] MEDS: CORDARONE PO SCH (14:22)
[2018-09-25] MEDS: VITAMIN D PO SCH (14:23)
[2018-09-25] MEDS: ZYLOPRIM PO SCH (14:23)
[2018-09-25] MEDS: ATIVAN IV SCH (21:42)
[2018-09-25] MEDS: LIPITOR PO SCH (22:13)
[2018-09-26] MEDS: LOPRESSOR IV SCH ×2 (00:43→12:08)
[2018-09-26] MEDS: ZOSYN 3.375 GM in NS 50 ML IV SCH ×4 (00:43→20:23)
[2018-09-26] MEDS: DUONEB (A & A) INH SCH ×6 (03:13→22:25)
[2018-09-26 07:08] LABS: CALCIUM 8.7 mg/dL (8.8-10.2); CREATININE 1.3 mg/dL (0.5-0.9); POTASSIUM 3.3 mmol/L (3.5-5.1)
[2018-09-26 07:50] LABS: INR 1.33; PROTIME 17.1 Seconds (11.0-16.0)
[2018-09-26] MEDS: ATIVAN IV SCH (09:28)
[2018-09-26] MEDS: CORDARONE PO SCH (09:33)
[2018-09-26] MEDS: LASIX IV SCH (09:33)
[2018-09-26] MEDS: LANOXIN IV SCH (09:46)
[2018-09-26] MEDS ORDERED: BLISTEX MEDICATED BERRY LIP BALM TOP PRN (10:00)
--- NOTE | 2018-09-26 11:59 | PROGRESS NOTE ---
DATE: 09/26/2018 SUBJECTIVE: The patient is not very verbal this morning. Her daughter is at bedside, and they report that patient has not been feeling well. OBJECTIVE: Vital Signs: Temperature 98 degrees, pulse 77 per minute, respiratory rate 20 per minute, blood pressure 148/56, pulse oximetry 96% on 2 L of oxygen via nasal cannula. General: Patient is awake and alert. She is oriented x3, but is not very verbal. Cardiovascular System: First and second heart sounds are audible without any murmurs or gallops. Respiratory System: No respiratory distress noted. Bilateral lung air entry is slightly decreased, but there is no evidence of rhonchi present on auscultation. Gastrointestinal System: Patient's abdomen is soft and slightly distended. It is nontender on palpation and bowel sounds are present, but somewhat hypoactive. This is an improvement as compared to the previous day. DIAGNOSTIC DATA: INR is 1.33. It is down from 2.26 yesterday after she received vitamin K 10 mg IV. Chemistry showed the potassium level of 3.3, BUN 29, and creatinine 1.3. Rest of the BMP is nondiagnostic. IMPRESSION: 1. Small bowel obstruction. 2. Acute systolic congestive heart failure secondary to ischemic cardiomyopathy. 3. Possible right lower lobe pneumonia. 4. Chronic atrial fibrillation with stable ventricular response. 5. Hypothyroidism. 6. Dyslipidemia. 7. Generalized deconditioning. PLAN: The patient has been having small bowel obstruction and today is the fourth day. She does have hypoactive bowel sounds today, and has been passing gas. I had discussed with general surgery yesterday, and they want patient to be transferred to [facility] and in anticipation of having any possible surgery, we have discontinued warfarin. She did receive vitamin K 10 mg IV to reverse her INR, and it has improved this morning. Her volume status is stable, and she appears to be euvolemic with stable systolic congestive heart failure. Her furosemide and spironolactone are held because she has not been taking anything by mouth. She has not been getting any IV fluids, however. As far as her pneumonia is concerned, she is getting Zosyn intravenously to cover the intra-abdominal pathogens as well, which will be continued. Chronic atrial fibrillation has been stable, and she will continue to receive her routine medications for hypothyroidism and dyslipidemia as well. The patient is not able to get any physical therapy because of her acute condition, although she does get up and was sitting in the chair for most of the day yesterday. We will monitor her electrolytes and transfer her to [facility] so that she can be under the direct care of General surgery, and the procedure can be done in case she needs it. cc: Perry Muse MD
--- NOTE | 2018-09-26 14:25 | CARDIOLOGY PROGRESS NOTE ---
DATE: 09/26/2018 CHIEF COMPLAINT: Abdominal distention, irregular heartbeat, dyspnea. SUBJECTIVE: Mrs. Waggoner is still complaining of abdominal discomfort. She has an NG tube connected to suction. She is awaiting transfer to [facility] for management by the surgical team. She definitely has clinical and radiologic features of small bowel obstruction. OBJECTIVE: Vital Signs: Blood pressure 148/56, temperature 98 degrees, pulse 70, respirations 20. General: She is awake. She is not comfortable. She has a mask with oxygen and getting a breathing treatment right now. HEENT: Unremarkable. Chest: Some rhonchi bilaterally. Heart: Heart sounds are slightly irregular. Abdomen: Distended. Tender to percussion. Diffusely tender. Bowel sounds are diminished. Extremities: Show no obvious edema. Neurologic: Follows commands. Moves all extremities. LABORATORY DATA: Today, her INR is 1.33. Sodium 142, potassium 3.3, BUN 29, creatinine 1.3. IMPRESSION: 1. A patient who has persistent atrial fibrillation. 2. Bowel obstruction. 3. History of coronary heart disease. 4. History of chronic kidney disease. 5. Stroke. 6. Hypertension. RECOMMENDATIONS: At this time, we will continue supportive therapy. She has been switched over to IV beta blockers and also IV Lasix. She is on broad-spectrum antibiotics. Her warfarin has been reversed by Dr. Muse in anticipation of surgical procedure. INR is okay today so they may proceed. The patient is being transferred to [facility] for management of small bowel obstruction. Will follow her along. cc: Franklyn iY MD
--- NOTE | 2018-09-26 17:42 | PROGRESS NOTE ---
DATE: 09/26/2018 Ms. Esme Waggoner is an 83-year-old white female who presented to [facility] Emergency Department with congestive heart failure. During her hospitalization her abdomen has become distended and we were asked to evaluate her for possible small bowel obstruction. I think over the last 2 days her abdomen has become softer. She has had an NG tube in place and it has not had much drainage. She admits to some flatus.. She has not had a bowel movement since I have been seeing her through the weekend. She has been NPO for several days. She has not had any regular IV fluid. She is being treated prophylactically with IV Zosyn. She has been on chronic Coumadin because of her cardiac function and that has been stopped. She received some vitamin K and her coagulation studies are returning towards normal. Her white blood cell count has been normal. She is not complaining of any abdominal pain. Her electrolytes are satisfactory, BUN is 29, creatinine 1.3, her potassium was 3.3. Plans are by ambulance to send her to [facility] for further care, possible surgery if needed. I want to get a flat and upright abdominal film tomorrow. I want to start her on maintenance IV fluids at a low rate. If she is clinically improving her NG tube needs to be removed and we need to allow her to eat to get some calories. If there is evidence of ongoing obstruction, exploratory laparotomy should be considered. Any exploratory laparotomy might require prolonged ventilation or hospitalization in the ICU because of her cardiac function. She has been good about sitting in a chair and getting out of bed. cc: Lisha Garcia MD
[2018-09-26] MEDS: D5 1/2 NS + KCL 20 MEQ 1,000 ML IV SCH (20:23)
[2018-09-27] MEDS: ATIVAN IV SCH ×2 (01:40→09:02)
[2018-09-27] MEDS: ZOSYN 3.375 GM in NS 50 ML IV SCH ×4 (01:52→20:28)
[2018-09-27] MEDS: LOPRESSOR IV SCH ×2 (01:52→15:55)
[2018-09-27] MEDS: DUONEB (A & A) INH SCH ×6 (03:35→22:35)
--- NOTE | 2018-09-27 09:38 | Diag Imaging Result Doc PS360 ---
EXAM: FLAT/UPRIGHT ABD/1 VIEW CHEST HISTORY: SBO vs ileus TECHNIQUE: Flat and upright with chest, three views COMPARISON: 09/24/2018 FINDINGS: The lungs are well expanded. The heart remains enlarged. There is a left-sided pacemaker. A nasogastric tube overlies the esophagus and stomach. No free air beneath the diaphragm. There continues to be dilated small bowel loops. A small amount stool is found in the mid colon and there is air in the distal colon. The gallbladder has been removed. IMPRESSION: There is at least a partial small bowel obstruction Electronically signed by Octavio Kim 09/27/2018 9:36 AM
[2018-09-27] MEDS: LANOXIN IV SCH (09:59)
[2018-09-27] MEDS: LASIX IV SCH (09:59)
[2018-09-27] MEDS ORDERED: NS 250 ML ONE (12:24)
--- NOTE | 2018-09-27 14:09 | Diag Imaging Result Doc PS360 ---
EXAM: CHEST-PORTABLE 09/27/2018 HISTORY: s/p picc line placement TECHNIQUE: AP portable at 1355 COMMENT: There is a PICC line on the right with its tip in the left innominate vein. There is some fibrosis or atelectasis in the retrocardiac left lower lobe which has not changed since 09/27/2018 at 0926. The NG tube has been removed. IMPRESSION: Stable chest. Electronically signed by Bo Wynn 09/27/2018 2:07 PM
[2018-09-27] MEDS ORDERED: MYCOSTATIN SUSP PO SCH ×2 (15:00→17:00)
--- NOTE | 2018-09-27 15:03 | Diag Imaging Result Doc PS360 ---
EXAM: CHEST-PORTABLE 09/27/2018 HISTORY: s/p picc line readjustment TECHNIQUE: AP portable at 1453 COMMENT: There is cardiomegaly. There is no evidence of acute pulmonary disease. There is a PICC line on the right with its tip in the left innominate vein. IMPRESSION: Cardiomegaly. Electronically signed by Bo Wynn 09/27/2018 3:00 PM
[2018-09-27] MEDS: D5 1/2 NS + KCL 20 MEQ 1,000 ML IV SCH (15:47)
[2018-09-27] MEDS: POTASSIUM CHLORIDE 20 MEQ/SWI 20 MEQ/100 ML IVPB IV SCH ×2 (16:43→18:53)
--- NOTE | 2018-09-27 19:11 | PROGRESS NOTE ---
DATE: 09/27/2018 SUBJECTIVE: Ms. Esme Waggoner was transferred from [facility] to [facility] because of ongoing abdominal distention and possible small bowel obstruction. She was initially admitted through [facility] emergency department with exacerbation of congestive heart failure. It was during this hospitalization that her abdomen became distended. She had an NG tube placed. She is on anticoagulation. She has not had much output from her NG tube. Her abdomen is certainly softer over the last 48 hours and she has passed some flatus. A flat and upright abdominal film this morning does show abnormal gaseous distention of her small bowel, but also her colon. She had air throughout the left colon and even the rectum. I felt after reviewing the x-rays with the radiologist that this may be an ileus picture, although she has had previous abdominal surgery. It would be a coincidence that her small bowel obstruction occurred while she was in the hospital. Because her NG tube has put out very little, I removed her NG tube today and we will start her on clear liquids in hopes that she can tolerate them. We will also increase her activity. I have asked them to evaluate her for a PICC line in case we needed nutrition. She has no tenderness of her abdomen. cc: Lisha Garcia MD
[2018-09-27] MEDS: MBX SOLUTION MT PRN (20:29)
[2018-09-28] MEDS: SODIUM CHLORIDE 0.9% INJ SCH ×2 (01:00→20:36)
[2018-09-28] MEDS: COUMADIN PO SCH ×2 (01:00→20:51)
[2018-09-28] MEDS: PROTONIX IV SCH ×2 (01:00→20:36)
[2018-09-28] MEDS: ZOSYN 3.375 GM in NS 50 ML IV SCH ×4 (01:01→20:36)
--- NOTE | 2018-09-28 01:19 | PROGRESS NOTE ---
DATE: 09/27/2018 SUBJECTIVE: The patient is doing well. No major complaints. NG tube is out. OBJECTIVE: Vital Signs: Blood pressure is 119/66, heart rate 72, respiratory rate 16, temperature 99.7 degrees. Cardiovascular: Regular rate and rhythm. Pulmonary: Bilateral breath sounds. Clear to auscultation. GI: Soft, nontender, nondistended. Bowel sounds are positive. Neck: Fairly distended. Laboratory: INR is 1.33. PROBLEM LIST: 1. Acute congestive heart failure exacerbation. We will continue diuresis and follow closely. 2. Partial small bowel obstruction is resolving. We will advance diet. Surgery is following. 3. Right lower lobe pneumonia. She is empirically on antibiotics. 4. Atrial fibrillation, with rate controlled. We will resume her Coumadin. 5. Hypothyroidism. We will continue her Synthroid and follow. DISPOSITION: Pending her clinical status. We will start working on getting her up and stable. cc: Wander Velasco MD
[2018-09-28] MEDS: DUONEB (A & A) INH SCH ×6 (03:05→23:12)
[2018-09-28 07:06] LABS: BASO# 0.02 X1000 (0.0-0.2); BASO% 0.2 % (0.0-0.8); EOS# 0.09 X1000 (0.0-0.7); EOS% 0.9 % (0.0-10.0); HEMATOCRIT 46.7 % (37.0-47.0); HEMOGLOBIN 14.8 g/dL (12.0-16.0); IMM GRAN# 0.02 X1000 (0.0-0.04); IMM GRAN% 0.2 % (0.0-0.5); LYMPH% 13.3 % (20.5-51.1); MCH 29.7 PG (27-31); MCHC 31.7 g/dL (33-37); MCV 93.6 FL (81-99); MONO% 11.3 % (1.7-9.3); MPV 10.7 FL (7.4-10.4); NEUT# 7.21 X1000 (1.4-6.5); NEUT% 74.1 % (42.2-75.2); PLT 236 X1000 (130-400); RBC 4.99 XMIL (4.2-5.4); RDW 15.8 % (11.5-14.5); WBC 9.74 X1000 (4.8-10.8)
[2018-09-28 07:22] LABS: INR 1.17; PROTIME 15.9 Seconds (11.0-16.0)
[2018-09-28 07:29] LABS: CALCIUM 8.4 mg/dL (8.8-10.2); CREATININE 1.1 mg/dL (0.5-0.9); MAGNESIUM 2.3 mg/dL (1.5-2.7)
--- NOTE | 2018-09-28 08:12 | PROGRESS NOTE ---
DATE: 09/28/2018 Ms. Esme Waggoner is an 83-year-old, white female who has been hospitalized with exacerbation of congestive heart failure. During her hospitalization, her abdomen has become distended and x-rays suggest either a small-bowel obstruction or an ileus. She has had previous abdominal surgery. Her white blood cell count is normal. Yesterday, I took her NG tube out and began letting her have some liquids. Her abdomen is still slightly distended but not tightly so. She admits to some flatus. She has had no nausea or vomiting since yesterday morning when we removed the NG tube. She had a PICC line placed in the right upper extremity yesterday by our cardiac catheterization lab. Physical therapy has been asked to see her but she did not ambulate the halls yesterday because of all the procedures and tests that were being done. She is receiving IV Zosyn. She is off her Coumadin and her coagulation studies are normal. Yesterday's abdominal films showed gas throughout her small bowel and into the left side of her colon. PLAN: I will continue just clear liquids today. We need to consider nutrition through her PICC line. I agree with increasing her activity, even ambulating in the halls if she can. She did complain of a chronic cough through the night. We are trying to limit her IV fluids. cc: Lisha Garcia MD
[2018-09-28] MEDS: LANOXIN PO SCH (09:24)
[2018-09-28] MEDS: ALDACTONE PO SCH (09:24)
[2018-09-28] MEDS: CORDARONE PO SCH (09:24)
[2018-09-28] MEDS: LASIX IV SCH (09:27)
[2018-09-28] MEDS: D5 1/2 NS + KCL 20 MEQ 1,000 ML IV SCH (16:56)
--- NOTE | 2018-09-28 19:24 | PROGRESS NOTE ---
DATE: 09/28/2018 INTERVAL HISTORY: Patient still with some abdominal distention. Currently remains NPO. still some nausea, but no further vomiting. No new complaints. No other acute events overnight. LABS: WBC 9.7, hemoglobin 14.8, hematocrit 46.7, platelets 236,000. INR 1.17. Sodium 142, potassium 4.0, BUN 24, creatinine 1.1, glucose 145. OBJECTIVE: Vitals: T-max 98.8, pulse 70, respirations 16, blood pressure 134/ 66, O2 saturation 98% on 2 L by nasal cannula. General: No acute distress, vitals as above. HEENT/Neck: Normocephalic, atraumatic. Moist mucous membranes. No cervical adenopathy. Cardiovascular: Regular rate and rhythm. No murmurs, rubs or gallops. Pulmonary: Clear to auscultation bilaterally. No wheezing, rales or rhonchi. Abdomen: Distended. Tympanic. Bowel sounds markedly decreased. Extremities: Peripheral pulses intact. No clubbing or cyanosis. Neurologic: Cranial nerves grossly intact. No focal deficits identified. Psychiatric: Normal mood and affect. Awake, alert and oriented x3. Skin: No new rashes or lesions identified. ASSESSMENT AND PLAN: 1. Partial small-bowel obstruction. Surgery following. The patient is tolerating a few ice chips, with some nausea but no vomiting. Abdomen is soft, distended. continue diet as per surgery and monitor her closely. 2. Acute on chronic systolic congestive heart failure, last known EF 20 to 25. Last BNP check was significantly improved. She remains on Lasix daily. Exacerbation of congestive heart failure is essentially resolved at this point. Last chest x-ray largely clear. We will continue current Lasix dosing for now as her kidneys appear to be tolerating it well, but can likely begin weaning down the Lasix dose in the near future. 3. Right lower lobe pneumonia, markedly improved. Remains on antibiotics with Zosyn. 4. Atrial fibrillation, largely normal sinus rhythm during this hospitalization. Continue home amiodarone and digoxin. Patient restarted on home Coumadin. 5. Hypothyroidism. Continue Synthroid. 6. Deep vein thrombosis prophylaxis. SCDs until Coumadin is therapeutic. [facility]
[2018-09-29] MEDS: ZOSYN 3.375 GM in NS 50 ML IV SCH ×2 (02:24→08:57)
[2018-09-29] MEDS: DUONEB (A & A) INH SCH ×6 (03:10→23:00)
[2018-09-29] MEDS: D5 1/2 NS + KCL 20 MEQ 1,000 ML IV SCH (05:25)
[2018-09-29 05:56] LABS: BASO# 0.04 X1000 (0.0-0.2); BASO% 0.5 % (0.0-0.8); EOS# 0.15 X1000 (0.0-0.7); EOS% 1.7 % (0.0-10.0); HEMATOCRIT 46.1 % (37.0-47.0); HEMOGLOBIN 14.7 g/dL (12.0-16.0); IMM GRAN# 0.04 X1000 (0.0-0.04); IMM GRAN% 0.5 % (0.0-0.5); LYMPH# 1.62 X1000 (1.2-3.4); LYMPH% 18.2 % (20.5-51.1); MCHC 31.9 g/dL (33-37); MCV 94.1 FL (81-99); MONO# 1.09 X1000 (0.11-0.59); MONO% 12.3 % (1.7-9.3); MPV 10.3 FL (7.4-10.4); NEUT# 5.94 X1000 (1.4-6.5); NEUT% 66.8 % (42.2-75.2); PLT 234 X1000 (130-400); RDW 15.7 % (11.5-14.5); WBC 8.88 X1000 (4.8-10.8)
[2018-09-29 06:00] LABS: INR 1.22; PROTIME 16.4 Seconds (11.0-16.0)
[2018-09-29 06:13] LABS: CREATININE 1.1 mg/dL (0.5-0.9); POTASSIUM 3.7 mmol/L (3.5-5.1)
[2018-09-29] MEDS: ALDACTONE PO SCH (08:57)
[2018-09-29] MEDS: LANOXIN PO SCH (08:57)
[2018-09-29] MEDS: LASIX IV SCH (08:57)
[2018-09-29] MEDS: CORDARONE PO SCH (08:57)
--- NOTE | 2018-09-29 10:16 | PROGRESS NOTE ---
DATE: 09/29/2018 Ms. Esme Waggoner's abdomen is more distended today. I have taken her NG tube out and have given her clear liquids over the last 48 hours. She still states that she has had flatus. She walked in the halls with physical therapy yesterday. She is not finishing her meals, but is taking some clear liquids. Her heart rate is 70, blood pressure 131/67, O2 saturation 99%. She is afebrile. She has been on IV Zosyn. Her white blood cell count has been normal. She has no significant tenderness involving her abdomen. I stopped her IV Zosyn because of her white blood cell count. No clinical signs of infection. I stopped her Coumadin because I am still not sure whether we are going to have to operate on her. I put her on Lovenox subcu. I ordered a flat and upright abdominal film for in the morning. I am going to start her on TPN through her PICC line. cc: Lisha Garcia MD
[2018-09-29] MEDS ORDERED: D10W 1,000 ML IV PRN (13:00)
[2018-09-29] MEDS: LIPOSYN 20% 500 ML IV SCH (15:11)
[2018-09-29] MEDS: [UNRECOGNIZED DRUG - NUTRITION] IV SCH ×6 (15:11)
[2018-09-29] MEDS: HUMULIN R SUBQ SCH ×3 (19:42→22:08)
[2018-09-29] MEDS: PROTONIX IV SCH (21:45)
--- NOTE | 2018-09-29 22:25 | PROGRESS NOTE ---
DATE: 09/29/2018 SUBJECTIVE: Overnight, the patient had worsening abdominal distention and continuous nausea. She did not have vomiting, and she stated that she has been having flatus. However , she has not had a bowel movement in 48 hours. Her NG tube was discontinued yesterday or day before yesterday, and she has been tolerating a clear liquid diet as such. The patient is feeling a little nauseous, and her abdomen is a little distended. She has not had a bowel movement in more than 48 hours now. The patient's family is at bedside. We discussed about plan of care. I answered all of her questions. OBJECTIVE: Vital Signs: Currently, temperature of 98 degrees, pulse 70, blood pressure 137/58, saturating 99% on 2 L nasal cannula. General: Does not appear in acute distress. HEENT: Oral cavity is moist. Lungs: Air entry bilaterally equal. No wheeze, rhonchi , or crackles. Heart: S1, S2 normal. No murmur, rub, or gallop. Abdomen: Soft, however distended. It does appear firm. Mildly tender to deep palpation. No rebound or rigidity. Tympanic to percussion. Active bowel sounds. Extremities: She has mild bilateral lower extremity edema. LABORATORY STUDIES: Input and output suggests positive 900 mL yesterday. Labs suggestive of no leukocytosis. INR of 1.2. Chronic kidney disease, stage 3. ASSESSMENT AND PLAN: 1. Acute partial small bowel obstruction. Follow up with abdominal x-ray on . Depending on that, she might need further NG tube insertion versus surgical management. Surgery on board. Continue patient on total parenteral nutrition and a full liquid diet for now. We will modify it according to patient's course. 2. [id number] systolic congestive heart failure, with ejection fraction of 25% status post automatic implanted cardioverter defibrillator. Continue intravenous Lasix and spironolactone. 3. H/o CAD: Aware. 3. Right lower lobe pneumonia, now improved. She is status post Zosyn, which was stopped because the patient did not have any more leukocytosis or fever episode. 4. History of atrial fibrillation. Currently, telemetry strips suggest paced rhythm. Continue amiodarone and digoxin. Coumadin has been held, considering possible surgical intervention for her small bowel obstruction in the future. Continue enoxaparin subcu prophylactic dose at the moment. 5. Hypothyroidism. Continue with Synthroid. 6. Deep venous thrombosis prophylaxis with sequential compression devices. 7. Disposition. Patient remains inside the hospital for close monitoring of her abdominal and breathing status. Plan of care was discussed with her. All of her questions have been answered. cc: Jorge Luis Guevara MD MTDD
[2018-09-30] MEDS: DUONEB (A & A) INH SCH ×6 (03:35→23:46)
[2018-09-30] MEDS: HUMULIN R SUBQ SCH ×5 (03:49→21:40)
[2018-09-30] MEDS: LOVENOX SUBQ SCH (06:05)
[2018-09-30 06:28] LABS: INR 1.26; PROTIME 16.8 Seconds (11.0-16.0)
--- NOTE | 2018-09-30 08:20 | Diag Imaging Result Doc PS360 ---
EXAM: FLAT/UPRIGHT ABD/1 VIEW CHEST INDICATION: ileus TECHNIQUE: 3 views COMPARISON: Chest radiograph dated 09/27/2018 FINDINGS: There are multiple gas-distended loops of bowel. This is essentially stable as compared to the prior abdominal radiograph dated 09/27/2018. There is no evidence of large volume free abdominal gas. The abdomen is stable, otherwise. The right central line is in stable position. The lungs remain essentially clear with no new consolidation. Cardiac silhouette is stable. IMPRESSION: Stable significant gaseous distention of bowel. Electronically signed by Fco Piedra 09/30/2018 8:18 AM
[2018-09-30] MEDS: LANOXIN PO SCH (09:22)
[2018-09-30] MEDS: ALDACTONE PO SCH (09:23)
[2018-09-30] MEDS: LASIX IV SCH (09:23)
[2018-09-30] MEDS: CORDARONE PO SCH (09:23)
[2018-09-30 13:53] LABS: AGAP 10; BUN 22 mg/dL (8-22); CALCIUM 8.5 mg/dL (8.8-10.2); CHLORIDE 101 mmol/L (98-107); CHOLESTEROL 110 mg/dL (0-200); COSMO 280; CREATININE 0.8 mg/dL (0.5-0.9); ESTIMATED GFR > 60; GLUCOSE 151 mg/dL (70-104); GOT 62 U/L (10-30); MAGNESIUM 1.9 mg/dL (1.5-2.7); PHOSPHORUS 1.8 mg/dL (2.7-4.5); POTASSIUM 3.7 mmol/L (3.5-5.1); SODIUM 137 mmol/L (136-145); TCO2 26 mmol/L (25-35); TRIGLYCERIDES 98 mg/dL (35-135)
[2018-09-30] MEDS: [UNRECOGNIZED DRUG - NUTRITION] IV SCH ×6 (14:34)
[2018-09-30] MEDS: LIPOSYN 20% 500 ML IV SCH (14:35)
[2018-09-30 15:04] LABS: PREALBUMIN 17.9 mg/dL (20-40)
[2018-09-30] MEDS ORDERED: TESSALON PO PRN (17:24)
--- NOTE | 2018-09-30 20:34 | PROGRESS NOTE ---
DATE: 09/30/2018 Overnight no acute events, in the morning time she got her abdominal x-ray which has suggested persistent ileus. Patient denies any nausea, vomiting or abdominal pain. She has been passing flatus less frequently today as compared to yesterday. She also had a very small bowel movement. She is complaining of cough today which is nonproductive. She is also feeling a little short of breath. OBJECTIVE: Vital signs: Temperature 98.6 degrees, pulse 70 per minute, blood pressure 120/56, saturating 98% 3 L nasal cannula. The patient does not appear in any acute distress. Oral cavity is moist, air entry bilaterally equal. No wheeze, rhonchi or crackles except the right infrascapular region why there are mild crackles. S1, S2 normal. Systolic murmur affecting the base of the heart, no rub or gallop. Abdomen: Soft, distended. LAB DATA: Are reviewed reveals hypophosphatemia. ASSESSMENT AND PLAN: 1. Acute partial small bowel obstruction. Follow up with abdominal x-ray on . Depending on that, she might need further NG tube insertion versus surgical management. Surgery on board. Continue patient on total parenteral nutrition and a full liquid diet for now. We will modify it according to patient's course. 2. [id number] systolic congestive heart failure, with ejection fraction of 25% status post automatic implanted cardioverter defibrillator. Continue intravenous Lasix and spironolactone. 3. H/o CAD: Aware. 3. Right lower lobe pneumonia, now improved. She is status post Zosyn, which was stopped because the patient did not have any more leukocytosis or fever episode. 4. History of atrial fibrillation. Currently, telemetry strips suggest paced rhythm. Continue amiodarone and digoxin. Coumadin has been held, considering possible surgical intervention for her small bowel obstruction in the future. Continue enoxaparin subcu prophylactic dose at the moment. 5. Hypothyroidism. Continue with Synthroid. 6. Deep venous thrombosis prophylaxis with sequential compression devices. 7. Disposition. Patient remains inside the hospital for close monitoring of her abdominal and breathing status. Plan of care was discussed with her. All of her questions have been answered. cc: Jorge Luis Guevara MD MTDD
[2018-09-30] MEDS: K-PHOS PO SCH (21:47)
[2018-09-30] MEDS: PROTONIX IV SCH (21:47)
[2018-09-30] MEDS: SODIUM CHLORIDE 0.9% INJ SCH (21:47)
[2018-09-30] MEDS: MBX SOLUTION MT PRN (22:10)
[2018-10-01] MEDS: HUMULIN R SUBQ SCH ×6 (01:00→21:35)
[2018-10-01] MEDS: DUONEB (A & A) INH SCH ×6 (03:55→23:10)
[2018-10-01] MEDS: LOVENOX SUBQ SCH (06:27)
[2018-10-01 07:12] LABS: AGAP 10; BUN 24 mg/dL (8-22); CALCIUM 9.1 mg/dL (8.8-10.2); CHLORIDE 100 mmol/L (98-107); COSMO 276; CREATININE 0.7 mg/dL (0.5-0.9); ESTIMATED GFR > 60; GLUCOSE 126 mg/dL (70-104); PHOSPHORUS 2.7 mg/dL (2.7-4.5); POTASSIUM 3.9 mmol/L (3.5-5.1); SODIUM 135 mmol/L (136-145); TCO2 25 mmol/L (25-35)
--- NOTE | 2018-10-01 07:13 | GENERAL SURGERY PROGRESS NOTE ---
DATE: 10/01/2018 SUBJECTIVE: The patient seems to still be having some issues with tolerating her diet. She had a real small bowel movement but did not seem to be that much. OBJECTIVE: Vital Signs: The patient is currently afebrile. Her vital signs are stable. General: No acute distress. HEENT: Normocephalic, atraumatic. Pupils equal, round, and reactive to light. Mucous membranes moist. Oropharynx benign. Neck supple. Trachea midline. Cardiovascular: Regular rate and rhythm. Lungs grossly clear. Abdomen soft, nondistended. Hypoactive bowel sounds. No peritoneal signs. Extremities: Moves all extremities. Neurologic: Grossly intact. Skin: No signs of jaundice. Vascular: All extremities perfused. LABORATORY: None this morning as of yet. ASSESSMENT AND PLAN: An 83-year-old with persistent ileus. Persistent ileus. At this time, given the fact that she has not improved, we will get a small bowel series on her to see if there is any obvious point of obstruction versus purely just an ileus. If it is an ileus, we will just kind of monitor her, but we will continue to follow up after the small bowel series. cc: Benjamin Campo MD
[2018-10-01] MEDS: CORDARONE PO SCH (12:11)
[2018-10-01] MEDS: ALDACTONE PO SCH (12:11)
[2018-10-01] MEDS: LANOXIN PO SCH (12:11)
[2018-10-01] MEDS: LASIX IV SCH (12:11)
[2018-10-01] MEDS: K-PHOS PO SCH ×3 (12:12→21:35)
--- NOTE | 2018-10-01 15:33 | PROGRESS NOTE ---
DATE: 10/01/2018 OVERNIGHT: Overnight, no acute events. INTERVAL HISTORY: The patient states she has not had any nausea, vomiting or abdominal pain. She has been passing gas, but has not had a bowel movement for 48 hours. She has been complaining of cough for which Tessalon Perles have been ordered. I discussed with her about chest x-ray finding that I saw yesterday, and the fact that she did not have leukocytosis. She had completed a course of Zosyn that would likely make the pneumonia less. This was just a cough from previously experienced pneumonia, for which she had completed antibiotic course. OBJECTIVE: Vital Signs: Currently vital signs reveal temperature 97.4 degrees , pulse 70 per minute, blood pressure 137/62, saturating 100% on 2 L nasal cannula. General examination: The patient does not appear in acute distress. Oral cavity is moist. Lungs: Air entry bilaterally equal. No wheeze or rhonchi. Mild bilateral infrascapular crackles. Heart: S1, S2 normal. Systolic murmur affecting base of the heart. No rub or gallop. Abdomen: Soft, distended. Tympanic to percussion. Neurologic: Alert and oriented x3. LAB DATA: Resolution of hypophosphatemia. Normal kidney function. Acceptable range of blood glucose. ASSESSMENT AND PLAN: 1. Acute partial small bowel obstruction with x-ray suggestive of persistent ileus. Surgery on board. Small bowel follow-through study has been ordered to rule out any obstruction contributing to it. I appreciate recommendation about further planning. Continue diet as per further recommendation. 2. Acute on chronic systolic congestive heart failure with ejection fraction of 25%, status post automatic implantable cardioverter defibrillator in the past. Change intravenous Lasix to oral. Continue oxygenation. Continue spironolactone. The patient has not been listed to be taking any beta blockers or REE inhibitors. 3. History of coronary artery disease, aware. Patient is not listed to be taking aspirin. Continue statin. 4. Right lower lobe pneumonia on admission, now improved. Status post Zosyn, which was stopped after a prolonged course. 5. Persistent cough is likely because of post pneumonia. Continue Tessalon Perles for symptomatic relief. 6. History of atrial fibrillation, status post automatic implantable cardioverter defibrillator and pacemaker. Currently, telemetry strip has a paced rhythm. Continue patient's amiodarone, digoxin, Coumadin has been held considering the possibility of surgical management in the near future. I will increase her enoxaparin dose to therapeutic as tolerated. I will give her 1 time additional dose today to prevent recurrence of stroke. 7. Hypothyroidism. Continue with Synthroid. 8. History of cerebrovascular accident in the past with residual weakness predominantly affecting left side, aware. I will keep her on therapeutic Lovenox for now. 9. Disposition: Patient remains inside the hospital for persistent abdominal distention and suspected ileus. Plan of care was discussed with the patient, her who is surrogate decision maker, and daughter at bedside. All of their questions have been answered satisfactorily. cc: Jorge Luis Guevara MD MTDD
[2018-10-01] MEDS: [UNRECOGNIZED DRUG - NUTRITION] IV SCH ×6 (15:41)
[2018-10-01] MEDS: LIPOSYN 20% 500 ML IV SCH (15:42)
[2018-10-01] MEDS ORDERED: LOVENOX SUBQ ONE (18:00)
--- NOTE | 2018-10-01 19:17 | Diag Imaging Result Doc PS360 ---
EXAM: SMALL BOWEL SERIES ONLY HISTORY: bowel obstruction vs ileus TECHNIQUE: Small bowel series. 11 films submitted. COMPARISON: None. FINDINGS: Supervisor Beam Department reveals multiple air distended loops of bowel. Oral contrast fills the stomach with slow filling of the proximal small bowel. There is stool in the colon. Films taken through eight hours reveal contrast within dilated loops of bowel in the lower abdomen. Minimal oral contrast in the right lower quadrant. This may simply be small bowel loops represent colon. IMPRESSION: No emptying into the colon through eight hours. Electronically signed by Octavio Kim 10/01/2018 7:15 PM
[2018-10-01] MEDS: LIPITOR PO SCH (21:35)
[2018-10-01] MEDS: SODIUM CHLORIDE 0.9% INJ SCH (22:18)
[2018-10-01] MEDS: PROTONIX IV SCH (22:18)
[2018-10-02] MEDS: HUMULIN R SUBQ SCH ×6 (01:00→21:24)
[2018-10-02] MEDS: DUONEB (A & A) INH SCH ×6 (03:30→23:05)
[2018-10-02] MEDS: LOVENOX SUBQ SCH (05:51)
--- NOTE | 2018-10-02 07:06 | GENERAL SURGERY PROGRESS NOTE ---
DATE: 10/02/2018 SUBJECTIVE: The patient had somewhat of a rough night. She had a sore throat and some coughing. Small-bowel series not make it all the way to her colon yesterday. I got an abdominal film this morning and it has not been officially read but it still does not look like there is contrast in the colon. OBJECTIVE: Vital Signs: The patient is currently afebrile. Her vital signs are stable. General Examination: No acute distress. HEENT: Normocephalic, atraumatic. Pupils equal, round, reactive to light. Mucous membranes moist. Oropharynx benign. Neck: Supple. Trachea midline. Cardiovascular: Regular rate and rhythm. Lungs: Grossly clear. Abdomen: Soft, nondistended. Hypoactive bowel sounds. No peritoneal signs. Extremities: Moves all extremities. Neurologic: Grossly intact. Skin: No signs of jaundice. Vascular: All extremities perfused. Laboratory: None this morning. X-ray as noted above. ASSESSMENT AND PLAN: An 83-year-old with persistent ileus versus bowel obstruction. Persistent ileus versus bowel obstruction. At this time, small-bowel series did not show contrast going to the colon. It looks like she has air in her distal lower colon but I cannot see contrast making it through there. The patient is high risk for any kind of surgical intervention but I did discuss that possibility with the family. I think, at this point, they want to think about it. I will update Dr. Garcia who will be returning back tomorrow. The patient may require exploratory laparotomy but we will monitor her for right now while the patient and the family make a decision. cc: Benjamin Campo MD
[2018-10-02 07:29] LABS: AGAP 12; BUN 27 mg/dL (8-22); CALCIUM 7.9 mg/dL (8.8-10.2); CHLORIDE 98 mmol/L (98-107); COSMO 279; CREATININE 0.8 mg/dL (0.5-0.9); ESTIMATED GFR > 60; GLUCOSE 127 mg/dL (70-104); POTASSIUM 3.7 mmol/L (3.5-5.1); SODIUM 136 mmol/L (136-145); TCO2 26 mmol/L (25-35)
--- NOTE | 2018-10-02 08:24 | Diag Imaging Result Doc PS360 ---
EXAM: ABDOMEN FLAT/UPRIGHT - 10/02/2018 HISTORY: follow up small bowel series TECHNIQUE: Supine and upright abdomen COMPARISON: 10/01/2018 small bowel series FINDINGS: There has been interval passage of some of the barium into the right colon. There is some residual barium in distal small bowel. There is also some residual barium in the stomach. There is no free air identified. IMPRESSION: Interval passage of swallowed barium from small bowel series in the right colon. There also is residual barium in distal small bowel. Electronically signed by Dev Tadeo 10/02/2018 8:22 AM
[2018-10-02] MEDS ORDERED: LOVENOX SUBQ ONE (13:49)
--- NOTE | 2018-10-02 14:24 | PROGRESS NOTE ---
DATE: 10/02/2018 INTERVAL HISTORY: Yesterday patient received her abdominal x-ray for small- bowel follow-through which had detected oral contrast moving slowly through stomach and small intestine; however, it did not travel to large intestine after 8 hours. Abdominal x-ray repeated today morning suggests presence of contrast on the right side, which could be part of colon. SUBJECTIVE: The patient denies nausea, vomiting or abdominal pain. She has been passing gas, but has not had a bowel movement. We discussed the x-ray findings and possible plan from the surgical team. I answered all of her questions. Her is at bedside, as well. OBJECTIVE: Vital Signs: Temperature 98.3, pulse 59, blood pressure 136/58, saturating 99% on 2 L nasal cannula. PHYSICAL EXAMINATION: General: Does not appear in acute distress. HEENT: Oral cavity is moist. Lungs: Air entry bilaterally equal. No wheeze, rhonchi. Only mild bilateral infrascapular crackles. Cardiovascular: S1, S2 normal. Systolic murmur at base of the heart. No rub or gallop. Abdomen: Soft, distended, tympanic to percussion. Mildly tender in generalized region. Extremities: No lower extremity edema. She has a Burgos catheter. Neurologic: Alert and oriented x 3. LABS: No electrolyte abnormalities. Her magnesium and phosphorus are within normal limits. ASSESSMENT AND PLAN: 1. Acute partial small bowel obstruction with small bowel follow-through. X- ray suggestive of suspected obstruction versus ileus. Surgery on board. Surgery to evaluate the patient tomorrow and see if she would need surgical management. Meanwhile, continue patient on current therapy of clear liquid diet and total parenteral nutrition. Will replete electrolytes as necessary. 2. Acute on chronic systolic congestive heart failure with ejection fraction of 25%, status post AICD in the past. Continue p.o. Lasix, spironolactone. Add Losartan as tolerated. The patient is not listed to be taking beta blockers. She should follow up with her outpatient spring tester. 3. History of coronary artery disease, aware. She is not listed to be taking any aspirin. Continue statin. She should discuss this with her outpatient provider. 4. Right lower lobe pneumonia on admission, status post intravenous Zosyn. 5. Persistent cough, likely because of post pneumonia. Continue Tessalon Perles for symptomatic relief. 6. History of atrial fibrillation status post AICD pacemaker. Currently, she is in paced rhythm. Continue home Amiodarone and Digoxin. Coumadin has been held considering possible surgical management, I will give her a higher dose of enoxaparin on daily basis to prevent recurrence of stroke. 7. Hypothyroidism. Continue home Synthroid. 8. History of CVA status post left residual upper extremity weakness, aware. 9. Disposition. Patient remains inside the hospital. 10. Code status is in DNR after discussion with the patient and her at bedside. All of their questions have been answered. cc: Jorge Luis Guevara MD MTD
[2018-10-02] MEDS: [UNRECOGNIZED DRUG - NUTRITION] IV SCH ×6 (15:10)
[2018-10-02] MEDS: LIPOSYN 20% 500 ML IV SCH (15:10)
[2018-10-02] MEDS: TESSALON PO SCH ×3 (15:11→22:07)
[2018-10-02] MEDS: ALDACTONE PO SCH (16:11)
[2018-10-02] MEDS: LANOXIN PO SCH (16:12)
[2018-10-02] MEDS: LASIX PO SCH (16:12)
[2018-10-02] MEDS: FISH OIL CONCENTRATE PO SCH (16:13)
[2018-10-02] MEDS: K-PHOS PO SCH ×2 (16:13→17:53)
[2018-10-02] MEDS: CORDARONE PO SCH (16:13)
[2018-10-02] MEDS: SODIUM CHLORIDE 0.9% INJ SCH (22:07)
[2018-10-02] MEDS: PROTONIX IV SCH (22:07)
[2018-10-03] MEDS: HUMULIN R SUBQ SCH ×6 (01:24→21:00)
[2018-10-03] MEDS: LIPITOR PO SCH ×2 (01:25→20:01)
[2018-10-03] MEDS: LASIX PO SCH ×3 (01:25→20:01)
[2018-10-03] MEDS: DUONEB (A & A) INH SCH ×6 (03:15→23:37)
[2018-10-03] MEDS: LOVENOX SUBQ SCH (06:34)
[2018-10-03 07:33] LABS: AGAP 11; BUN 26 mg/dL (8-22); CALCIUM 8.6 mg/dL (8.8-10.2); CHLORIDE 103 mmol/L (98-107); COSMO 286; CREATININE 0.8 mg/dL (0.5-0.9); ESTIMATED GFR > 60; GLUCOSE 138 mg/dL (70-104); MAGNESIUM 2.1 mg/dL (1.5-2.7); PHOSPHORUS 2.4 mg/dL (2.7-4.5); POTASSIUM 3.3 mmol/L (3.5-5.1); SODIUM 140 mmol/L (136-145); TCO2 26 mmol/L (25-35)
--- NOTE | 2018-10-03 07:51 | EKG Report ---
Test Performed on : 10/01/2018 9:04:29 PM Test Reason : abnormal reading Blood Pressure : / mmHG Vent. Rate : 070 BPM Atrial Rate : 070 BPM P-R Int : 212 ms QRS Dur : 164 ms QT Int : 454 ms P-R-T Axes : 066 -65 102 degrees QTc Int : 490 ms AV sequential or dual chamber electronic pacemaker with prolonged AV conduction 100% paced Left axis deviation ventricular complexes are typical for RV pacing Abnormal ECG When compared with ECG of 14-SEP-2018 14:26, (Unconfirmed) No significant change was found Confirmed by Radha VENCES, Bhupinder Daly ([id number]) on 10/03/2018 5:24:21 PM
[2018-10-03 08:17] LABS: BASO# 0.04 X1000 (0.0-0.2); BASO% 0.5 % (0.0-0.8); EOS% 2.5 % (0.0-10.0); HEMATOCRIT 41.4 % (37.0-47.0); HEMOGLOBIN 13.6 g/dL (12.0-16.0); IMM GRAN# 0.05 X1000 (0.0-0.04); IMM GRAN% 0.6 % (0.0-0.5); LYMPH# 1.45 X1000 (1.2-3.4); LYMPH% 17.9 % (20.5-51.1); MCH 30.2 PG (27-31); MCHC 32.9 g/dL (33-37); MCV 91.8 FL (81-99); MONO# 0.84 X1000 (0.11-0.59); MONO% 10.4 % (1.7-9.3); MPV 10.6 FL (7.4-10.4); NEUT# 5.51 X1000 (1.4-6.5); NEUT% 68.1 % (42.2-75.2); PLT 260 X1000 (130-400); RBC 4.51 XMIL (4.2-5.4); RDW 14.9 % (11.5-14.5); WBC 8.09 X1000 (4.8-10.8)
[2018-10-03 08:30] LABS: INR 1.03; PROTIME 14.3 Seconds (11.0-16.0)
[2018-10-03 08:31] LABS: PTT 33.2 Seconds (22.3-41.8)
[2018-10-03] MEDS ORDERED: CALMOSEPTINE OINTMENT TOP PRN (09:09)
--- NOTE | 2018-10-03 10:20 | Diag Imaging Result Doc PS360 ---
EXAM: FLAT/UPRIGHT ABD/1 VIEW CHEST HISTORY: ileus TECHNIQUE: Flat and upright with chest, three views COMPARISON: 10/02/2018 FINDINGS: The lungs are well expanded. The heart remains enlarged. There is a left-sided pacemaker. No pneumonia. Right-sided PICC line with tip in the mid superior vena cava. No free air beneath the diaphragm. There is oral contrast throughout the small bowel and colon. There is less stool in the colon on the current study. No organomegaly. There are surgical clips in right upper quadrant. IMPRESSION: Interval improvement. Electronically signed by Octavio Kim 10/03/2018 10:18 AM
[2018-10-03] MEDS: TESSALON PO SCH ×3 (10:39→17:16)
[2018-10-03] MEDS: ALDACTONE PO SCH (10:43)
[2018-10-03] MEDS: CORDARONE PO SCH (10:43)
[2018-10-03] MEDS: FISH OIL CONCENTRATE PO SCH (10:44)
[2018-10-03] MEDS: LANOXIN PO SCH (10:44)
[2018-10-03] MEDS: LIPOSYN 20% 500 ML IV SCH (14:48)
[2018-10-03] MEDS: [UNRECOGNIZED DRUG - NUTRITION] IV SCH ×6 (14:48)
--- NOTE | 2018-10-03 15:40 | PROGRESS NOTE ---
DATE: 10/03/2018 INTERVAL EVENTS: Yesterday night the patient had hematuria and entire Burgos catheter bag was filled with blood, which was emptied by the time I evaluated the patient today morning. Her urine looks clear in the Burgos catheter tubing. SUBJECTIVE: Subjective patient denies chest pain, shortness of breath. She continues to have cough. She stated that she has been passing gas more frequently. She also had small bowel movements x 2. We discussed about her abdominal x-ray finding. OBJECTIVE: Vitals: Unremarkable. Afebrile. Not tachycardic. Blood pressure in acceptable range. PHYSICAL EXAMINATION: General: Does not appear in any acute distress. Oral cavity is moist. Lungs: Air entry bilaterally equal with occasional bilateral infrascapular crackles. Cardiovascular: S1, S2 normal. Systolic murmur at the base of the heart. No rub or gallop. Abdomen: Soft, distended. However, distention is less as compared to previous examination. Tympanic to percussion. No tenderness. Extremities: No lower extremity edema. Genitourinary: She has a Burgos catheter. The back has hematuria and the tubing has clear urine. Neurologic: Alert, oriented x 3. LABS: Today suggestive of no leukocytosis. Stable hemoglobin ,hematocrit, platelet count. Hypokalemia which is being repleted with potassium chloride. Normal kidney function. Blood sugars in acceptable range cough. ASSESSMENT AND PLAN: 1. Acute partial small bowel obstruction with small bowel obstruction versus ileus. Surgery on board. Appreciate recommendation about advancing diet. Today's abdominal x- ray suggests passage of dye in left side of colon and patient also had a small bowel movement. Continue to keep patient n.p.o. until further recommendation. Continue potassium and phosphorus repletion today. 2. Acute on chronic systolic congestive heart failure with ejection fraction of 25%, status post AICD. Continue p.o. Lasix, spironolactone. I will add losartan as tolerated. She should discuss with her outpatient doctor about starting beta blockers as tolerated. 3. History of coronary artery disease. She is not listed to be taking any aspirin. Continue statin. She should discuss this with her outpatient provider. 4. Right lower lobe pneumonia on admission, status post intravenous Zosyn, resolved. 5. Persistent cough because of previously experienced pneumonia. Continue Tessalon Perles for symptomatic relief. 6. History of atrial fibrillation and currently she is in paced rhythm. Continue home amiodarone, digoxin. She had received therapeutic doses of Lovenox on October 02 and . We are holding Coumadin considering possible need of surgery in the future. Continue DVT prophylaxis, enoxaparin dose. 7. Hypothyroidism. Continue home Synthroid. 8. History of cerebrovascular accident, status post left residual upper extremity weakness, aware. 9. Disposition: Patient remains inside the hospital. 10. Code status is DNR after discussion with patient and at bedside. All of their questions have been answered. 11. Hematuria likely because of Lovenox dose that she has received. monitor with Burgos catheter keeping inside. cc: Jorge Luis Guevraa MD MTDD
[2018-10-03] MEDS: K-PHOS PO SCH (17:16)
--- NOTE | 2018-10-03 18:14 | PROGRESS NOTE ---
DATE: 10/03/2018 SUBJECTIVE: Ms Esme Waggoner's upper GI shows that the dye has gone all the way through her small bowel and colon, down to her rectum. She has had some flatus. She has had some bowel movements. She has not had an NG tube for at least 4 days with no vomiting. I have begun her on a heart healthy diet. Esme brown tomorrow. cc: Lisha Garcia MD
[2018-10-03] MEDS: SODIUM CHLORIDE 0.9% INJ SCH (20:01)
[2018-10-03] MEDS: PROTONIX IV SCH (20:01)
[2018-10-03] MEDS: COREG PO SCH (20:05)
[2018-10-03] MEDS ORDERED: ALDACTONE PO SCH (21:00)
[2018-10-04] MEDS: HUMULIN R SUBQ SCH ×5 (01:00→15:16)
[2018-10-04] MEDS: DUONEB (A & A) INH SCH ×6 (04:01→23:09)
[2018-10-04] MEDS: PROTONIX IV SCH ×2 (05:53→21:50)
[2018-10-04 06:28] LABS: AGAP 10; BUN 30 mg/dL (8-22); CALCIUM 8.6 mg/dL (8.8-10.2); CHLORIDE 101 mmol/L (98-107); COSMO 282; CREATININE 0.8 mg/dL (0.5-0.9); ESTIMATED GFR > 60; GLUCOSE 138 mg/dL (70-104); MAGNESIUM 2.1 mg/dL (1.5-2.7); PHOSPHORUS 2.3 mg/dL (2.7-4.5); POTASSIUM 3.4 mmol/L (3.5-5.1); SODIUM 137 mmol/L (136-145); TCO2 26 mmol/L (25-35)
[2018-10-04] MEDS: LOVENOX SUBQ SCH ×2 (07:29→18:06)
[2018-10-04] MEDS: LANOXIN PO SCH (08:38)
[2018-10-04] MEDS: COREG PO SCH ×2 (08:38→23:47)
[2018-10-04] MEDS: CORDARONE PO SCH (08:38)
[2018-10-04] MEDS: FISH OIL CONCENTRATE PO SCH (08:38)
[2018-10-04] MEDS: ALDACTONE PO SCH (08:38)
[2018-10-04] MEDS: K-PHOS PO SCH ×3 (08:39→16:55)
[2018-10-04] MEDS: TESSALON PO SCH ×3 (08:39→21:50)
[2018-10-04] MEDS: LASIX PO SCH ×2 (08:39→23:47)
--- NOTE | 2018-10-04 15:54 | PROGRESS NOTE ---
DATE: 10/04/2018 Ms. Esme Waggoner over the weekend underwent an upper GI and that dye has gone through her entire small bowel and colon suggesting no evidence of bowel obstruction. She is having some diarrhea today and her abdomen is soft. I have given her a heart healthy diet. She has been trying to be good about getting up out of bed. She needs to continue being active. I think her Burgos catheter tube should be removed and possibly she will need a bedside commode. cc: Lisha Garcia MD
[2018-10-04] MEDS: SODIUM CHLORIDE 0.9% INJ SCH (21:50)
[2018-10-04] MEDS: LIPITOR PO SCH (21:50)
[2018-10-05] MEDS: DUONEB (A & A) INH SCH ×6 (03:21→23:15)
--- NOTE | 2018-10-05 03:54 | PROGRESS NOTE ---
DATE: 10/04/2018 INTERVAL HISTORY: Patient has started having multiple bowel movements with diarrhea and mixed with stool without any blood. She denies any nausea or vomiting. She has been also started on heart healthy diet. VITAL SIGNS: Currently: Temp is 98.6, pulse 62 per minute, blood pressure 130/64, saturating 98% on 2 L nasal cannula. PHYSICAL EXAMINATION: General: Does not appear in acute distress. HEENT: Oral cavity moist. Lungs: Air entry bilaterally equal. No wheezes, rhonchi or crackles. Cardiovascular: S1, S2 normal. No murmur, rub or gallop. LABS: Labs were suggestive of hypokalemia, hypophosphatemia, which is being repleted with oral potassium. MICROBIOLOGY: No new data. IMAGING: No new imaging data. ASSESSMENT AND PLAN: 1. Acute partial small bowel obstruction versus ileus. Continue patient on heart healthy diet as per surgery recommendation. Ileus seems to have resolved. Continue total parenteral nutrition until we ensure adequate p.o. intake. 2. Acute on chronic systolic congestive heart failure with ejection fraction of 25% status post AICD. Continue p.o. Lasix, spironolactone and low-dose carvedilol. I will add losartan as tolerated. 3. History of coronary artery disease. She is not listed to be taking aspirin since she has been on Coumadin as per history given by patient. Continue statin. 4. Right lower lobe pneumonia on admission status post intravenous Zosyn, resolved. She does have residual cough for which continue Tessalon Perles for symptomatic relief. 5. History of atrial fibrillation, currently in paced rhythm. Continue home amiodarone, digoxin and start patient on therapeutic Lovenox. At the time of discharge she might need Lovenox and Coumadin bridging. 6. Hypothyroidism. Continue home Synthroid. 7. History of cerebrovascular accident, status post residual left upper extremity weakness. The patient is not on aspirin since she has been on Coumadin. She should hold further discussion with her outpatient provider. 8. Disposition and code status: DNR. The patient remains inside the hospital. 9. Hematuria, likely because of Lovenox. I will give additional doses of Lovenox if she does not have hematuria. My plan is to remove Burgos catheter tomorrow. 10. Plan of care discussed with the patient. All of her questions have been answered. cc: Jorge Luis Guevara MD
[2018-10-05] MEDS: LOVENOX SUBQ SCH ×2 (05:19→17:33)
[2018-10-05 06:17] LABS: CALCIUM 8.8 mg/dL (8.8-10.2); CREATININE 0.9 mg/dL (0.5-0.9); MAGNESIUM 1.9 mg/dL (1.5-2.7); PHOSPHORUS 3.3 mg/dL (2.7-4.5); POTASSIUM 3.5 mmol/L (3.5-5.1)
[2018-10-05] MEDS: K-PHOS PO SCH ×2 (10:32→15:51)
[2018-10-05] MEDS: TESSALON PO SCH ×3 (10:32→22:02)
[2018-10-05] MEDS: COREG PO SCH ×2 (10:32→21:57)
[2018-10-05] MEDS: CORDARONE PO SCH (10:32)
[2018-10-05] MEDS: FISH OIL CONCENTRATE PO SCH (10:32)
[2018-10-05] MEDS: LANOXIN PO SCH (10:32)
[2018-10-05] MEDS: LASIX PO SCH (10:33)
[2018-10-05] MEDS: ALDACTONE PO SCH (10:33)
[2018-10-05] MEDS: LACTULOSE PO SCH ×2 (15:58→21:57)
--- NOTE | 2018-10-05 16:06 | PROGRESS NOTE ---
DATE: 10/05/2018 INTERVAL EVENTS: The patient was started on a heart healthy diet. She has not had a bowel movement in about 24 hours. She denies any nausea, vomiting, bloating, or abdominal pain. Urine catheter has been taken out. OBJECTIVE: Vital Signs: Currently, temperature 98.6 degrees, pulse 70, blood pressure 98/46, saturating 100% on 2 L nasal cannula. Respiratory rate of 18 per minute. General: On physical examination, does not appear in any acute distress. Oral cavity is moist. Lungs: Air entry bilaterally equal. No wheeze or rhonchi. Mild bilateral infrascapular crackles for which I have ordered incentive spirometry. Cardiovascular: S1, S2 normal. No murmur, rub, or gallop. Abdomen: Soft, nontender. Active bowel sounds. Extremities: No lower extremity edema. Neurological examination: She is alert, oriented x3. She does have residual left upper extremity weakness from her prior stroke. LABS: BMP suggestive of resolution of hypokalemia. Normal kidney function. ASSESSMENT AND PLAN: 1. Acute partial small bowel obstruction versus ileus. Continue heart healthy diet as per surgery recommendation. I will start the patient on lactulose to avoid constipation, and I will discontinue total parenteral nutrition as the patient has been eating adequately. Will appreciate surgery recommendation about further management. 2. Acute on chronic systolic congestive heart failure with ejection fraction of 25% status post automatic implantable cardioverter defibrillator, now resolved. Continue the patient on her home dose of Lasix, spironolactone, low-dose carvedilol. 3. History of coronary artery disease, aware. Continue beta blockers and statin. She is not listed to be taking aspirin as she was on Coumadin in the past. 4. History of atrial fibrillation, currently in paced rhythm. Continue home amiodarone, digoxin and therapeutic Lovenox. I would also resume patient's home warfarin today for bridging. She would likely go home on warfarin (home med) with lovenox bridging. 5. Hypothyroidism. Continue home Synthroid. 6. History of cerebrovascular accident, status post residual left upper extremity weakness. The patient is not on aspirin since she has been on Coumadin as per the history given by the patient. 7. . Hematuria, likely because of Lovenox, had been resolved and Burgos has been taken out. DISPOSITION: 1. Code status: DNR. 3. The patient remains inside the hospital as we ensure a regular bowel movement. If she has a regular bowel movement tomorrow after surgery's recommendation, my plan will be to discharge her home after discussion with surgery. I called surgery today and have left a voice message. I am waiting for their call back. Plan of care was discussed with her and all of her questions have been answered. cc: Jorge Luis Guevara MD MTDCy
[2018-10-05] MEDS ORDERED: METAMUCIL POWDER PACKET PO SCH (21:00)
[2018-10-05] MEDS: LIPITOR PO SCH (21:57)
[2018-10-05] MEDS: PROTONIX IV SCH (21:58)
[2018-10-05] MEDS: SODIUM CHLORIDE 0.9% INJ SCH (21:58)
[2018-10-05] MEDS: JANTOVEN PO SCH (22:03)
[2018-10-06] MEDS: DUONEB (A & A) INH SCH ×6 (03:10→23:38)
[2018-10-06] MEDS: LOVENOX SUBQ SCH ×2 (05:47→17:45)
[2018-10-06 06:54] LABS: PHOSPHORUS 3.7 mg/dL (2.7-4.5); PREALBUMIN 17.9 mg/dL (20-40)
[2018-10-06] MEDS: ALDACTONE PO SCH (09:20)
[2018-10-06] MEDS: LANOXIN PO SCH (09:20)
[2018-10-06] MEDS: LACTULOSE PO SCH ×2 (09:20→21:05)
[2018-10-06] MEDS: LASIX PO SCH (09:21)
[2018-10-06] MEDS: FISH OIL CONCENTRATE PO SCH (09:21)
[2018-10-06] MEDS: TESSALON PO SCH ×3 (09:21→17:44)
[2018-10-06] MEDS: CORDARONE PO SCH (09:21)
[2018-10-06] MEDS: COREG PO SCH ×2 (09:21→21:06)
--- NOTE | 2018-10-06 18:05 | PROGRESS NOTE ---
DATE: 10/06/2018 SUBJECTIVE: This patient is eating at the bedside. She is eating at this moment, but not a whole lot. Family members are at the bedside. She is not complaining of nausea or vomiting. She is passing gas, but no bowel movement so far. She has been on lactulose twice a day which I will continue. OBJECTIVE: Vital Signs: Temperature 98.6 degrees, pulse 60, respiratory rate 19, blood pressure 133/66, and oxygen saturation 100% on room air. HEENT: Head normocephalic. No trauma. PERRLA. Neck: Supple. No JVD. No masses. Central trachea. Chest: Clear to auscultation. Some crepitus at the bases, and mild crackles scattered at the bases as well. Cardiovascular: Regular rate and rhythm. Abdomen: Soft. He is nontender, a little bit distended but positive bowel sounds. No signs of peritoneal irritation. Extremities: No edema. No clubbing. No cyanosis. Neurological: The patient is alert and oriented x3. She does have a left upper extremity weakness from prior stroke. LABORATORY: PT 14. INR 1. Phosphorus 3.7. Magnesium 2. AST 67. Pre-albumin 17.9 and triglyceride 76. ASSESSMENT AND PLAN: 1. Acute partial small bowel obstruction versus ileus. We will continue with the diet and lactulose to avoid constipation. We have discontinued already the TPN. We will follow the recommendations of Surgery Department. No bowel movement so far, but she is not having nausea or vomiting. 2. Acute on chronic systolic heart failure with an ejection fraction of 25% status post an automatic implantable cardioverter-defibrillator. I think she is doing fine, resolved. Continue with the same management. 3. History of coronary artery disease, aware. Continue beta blockers and statins. She is not complaining of chest pain. She is on warfarin. She is not on aspirin. 4. Atrial fibrillation, rate controlled. Continue with the same management. 5. Severe cardiomyopathy, likely ischemic. Continue with same treatment. 6. Right lower lobe pneumonia, resolved. She already received treatment with Levaquin. 7. Hypothyroidism. Continue with Synthroid. 8. History of CVA, status post residual left upper extremity weakness. It looks like the patient is not on aspirin since she is on Coumadin as per the history given by the patient. 9. Hematuria resolved. cc: Brad Moreira MD
[2018-10-06] MEDS: PROTONIX IV SCH (21:05)
[2018-10-06] MEDS: LIPITOR PO SCH (21:06)
[2018-10-06] MEDS: SODIUM CHLORIDE 0.9% INJ SCH (21:06)
[2018-10-06] MEDS: JANTOVEN PO SCH (21:33)
[2018-10-07] MEDS: DUONEB (A & A) INH SCH ×6 (03:57→23:35)
[2018-10-07] MEDS: LOVENOX SUBQ SCH ×2 (06:04→17:15)
[2018-10-07 06:54] LABS: BASO# 0.03 X1000 (0.0-0.2); BASO% 0.4 % (0.0-0.8); EOS# 0.15 X1000 (0.0-0.7); EOS% 1.8 % (0.0-10.0); HEMATOCRIT 42.6 % (37.0-47.0); HEMOGLOBIN 14.1 g/dL (12.0-16.0); IMM GRAN# 0.06 X1000 (0.0-0.04); IMM GRAN% 0.7 % (0.0-0.5); LYMPH# 1.43 X1000 (1.2-3.4); LYMPH% 17.1 % (20.5-51.1); MCH 30.5 PG (27-31); MCHC 33.1 g/dL (33-37); MCV 92.2 FL (81-99); MONO# 0.77 X1000 (0.11-0.59); MONO% 9.2 % (1.7-9.3); MPV 11.4 FL (7.4-10.4); NEUT# 5.93 X1000 (1.4-6.5); NEUT% 70.8 % (42.2-75.2); PLT 263 X1000 (130-400); RBC 4.62 XMIL (4.2-5.4); RDW 15.6 % (11.5-14.5); WBC 8.37 X1000 (4.8-10.8)
[2018-10-07 07:14] LABS: ALB/GLOB RATIO 0.9; ALBUMIN 3.2 g/dL (3.5-5.0); CALCIUM 8.7 mg/dL (8.8-10.2); POTASSIUM 3.8 mmol/L (3.5-5.1); TOTAL BILIRUBIN 0.6 mg/dL (0.20-1.00); TOTAL PROTEIN 6.6 g/dL (6.3-8.3)
[2018-10-07 07:39] LABS: INR 1.11; PROTIME 15.1 Seconds (11.0-16.0)
--- NOTE | 2018-10-07 07:56 | Diag Imaging Result Doc PS360 ---
EXAM: FLAT/UPRIGHT ABD/1 VIEW CHEST HISTORY: sbo TECHNIQUE: Flat and upright with chest, three views COMPARISON: 10/03/2018 FINDINGS: The lungs are well expanded. Mild cardiomegaly. There is a left-sided pacemaker. No change in the right PICC line. No pneumonia. No free air beneath the diaphragm. There is stool throughout the colon. No bowel obstruction. The gallbladder has been removed. No organomegaly. There are multiple pelvic phleboliths. IMPRESSION: No evidence of a bowel obstruction. Electronically signed by Octavio Kim 10/07/2018 7:53 AM
[2018-10-07] MEDS: LANOXIN PO SCH (08:19)
[2018-10-07] MEDS: CORDARONE PO SCH (08:20)
[2018-10-07] MEDS: ALDACTONE PO SCH (08:20)
[2018-10-07] MEDS: COREG PO SCH ×2 (08:20→20:37)
[2018-10-07] MEDS: FISH OIL CONCENTRATE PO SCH (08:20)
[2018-10-07] MEDS: LASIX PO SCH (08:20)
[2018-10-07] MEDS: LACTULOSE PO SCH ×2 (08:20→20:38)
[2018-10-07] MEDS: TESSALON PO SCH ×3 (08:20→20:37)
--- NOTE | 2018-10-07 08:32 | PROGRESS NOTE ---
DATE: 10/07/2018 Ms. Esme Waggoner's latest abdominal film suggests no evidence of bowel obstruction and stool within the colon. Her ileus is resolving and medically she just needs a bowel regimen that will keep her bowels moving. I agree with a regular diet and increase in her activity. She has restarted her Coumadin because of atrial fibrillation, and working towards discharge home. Follow up with us on an as needed basis. cc: Lisha Garcia MD
[2018-10-07] MEDS: LIPITOR PO SCH (20:38)
[2018-10-07] MEDS: JANTOVEN PO SCH (20:38)
[2018-10-07] MEDS: PROTONIX IV SCH (20:39)
--- NOTE | 2018-10-07 23:42 | PROGRESS NOTE ---
DATE: 10/07/2018 SUBJECTIVE: This patient is feeling better. She has been having bowel sounds, no bowel movement so far, her abdomen is a little bit distended but nontender, she is not complaining of nausea and vomiting and actually this patient has been passing gas. She has been on lactulose twice a day which I will continue. I did an x-ray today that did not show any evidence of a bowel obstruction, she is completely alert and oriented x3. Vital signs are stable but no bowel movement so far like I said. OBJECTIVE: Vital Signs: Temperature 98.7 degrees, pulse 69, respiratory rate 20, blood pressure 142/67, oxygen saturation 99 on room air. HEENT: Head normocephalic. No trauma. PERRLA. Neck: Supple. No JVD. No masses. Central trachea. Chest: Clear to auscultation. Some crepitus at the bases. Cardiovascular: RRR. Abdomen: Soft, nontender, a little bit distended. Positive bowel sounds. No signs of peritoneal irritation. Extremities: No edema, no clubbing, no cyanosis. Neurological: The patient is alert and oriented x3. She does have some left upper extremity weakness from prior stroke. LABORATORY: WBC 8.3, hemoglobin 14.1, hematocrit 42.6, platelet 263,000. Sodium 140, potassium 3.8, chloride 104, bicarbonate 21, BUN 20, creatinine 1, glucose 126, calcium 8.7, albumin 3.2. ASSESSMENT AND PLAN: 1. Acute partial small bowel obstruction versus ileus, I do believe this is better, she is tolerating p.o. She has been ambulating with assistance, we have discontinued already the total parenteral nutrition a few days ago. We will continue with lactulose twice a day until we have some bowel movements, she is not complaining of nausea and vomiting. She is tolerating p.o. 2. Acute on chronic systolic heart failure exacerbation with an ejection fraction of 25% status post an implantable cardioverter defibrillator, I think she is doing fine resolved. Continue with the same management. She has no complaint of shortness of breath or chest pain. 3. History of coronary artery disease, aware. Continue with beta blockers and statins, she is not complaining of chest pain. She is on warfarin. She is not on aspirin. 4. Atrial fibrillation rate controlled. Continue with same management. 5. Severe cardiomyopathy likely ischemic. Continue with the same treatment. 6. Right lower lobe pneumonia, resolved, she already received treatment with Levaquin. 7. Hypothyroidism. Continue with Synthroid. 8. History of cerebrovascular accident status post residual left upper extremity weakness, it looks like the patient is not on aspirin since she is on Coumadin as per the history given by the patient. 9. Hematuria resolved. cc: Brad Moreira MD
[2018-10-08] MEDS: DUONEB (A & A) INH SCH ×4 (03:30→15:58)
[2018-10-08] MEDS: LOVENOX SUBQ SCH (06:40)
[2018-10-08 07:02] LABS: CALCIUM 8.9 mg/dL (8.8-10.2); CREATININE 0.9 mg/dL (0.5-0.9); POTASSIUM 3.8 mmol/L (3.5-5.1)
[2018-10-08] MEDS: FISH OIL CONCENTRATE PO SCH (08:36)
[2018-10-08] MEDS: LASIX PO SCH (08:36)
[2018-10-08] MEDS: LACTULOSE PO SCH (08:37)
[2018-10-08] MEDS: ALDACTONE PO SCH (08:37)
[2018-10-08] MEDS: CORDARONE PO SCH (08:37)
[2018-10-08] MEDS: COREG PO SCH (08:37)
[2018-10-08] MEDS: TESSALON PO SCH ×2 (08:37→12:41)
[2018-10-08] MEDS: LANOXIN PO SCH (08:37)
[2018-10-08] MEDS ORDERED: DULCOLAX PR SCH (11:15)
[2018-10-08 13:17] VITALS: BP 121/60
--- NOTE | 2018-10-08 15:01 | PROGRESS NOTE ---
DATE: 10/08/2018 SUBJECTIVE: This patient is feeling better. No shortness of breath. She has been passing gas. Positive bowel sounds. No bowel movement so far. OBJECTIVE: Vital Signs: Temperature 98.3 degrees, pulse 70, respiratory rate 20, blood pressure 121/60, oxygen saturation 98% on room air. HEENT: Head normocephalic. No trauma. PERRLA. Neck: Supple. No JVD. No masses. Central trachea. Chest: Clear to auscultation. Some crepitus at the bases. Cardiovascular: RRR. Abdomen: Soft, nontender. A little bit distended, but positive bowel sounds. No signs of peritoneal irritation. Extremities: No edema. No clubbing. No cyanosis. Neurological examination: The patient is alert and oriented x3. He does have some left upper extremity weakness from prior stroke. LABORATORY: Sodium 141, potassium 3.8, chloride 104, bicarbonate 22. BUN 17, creatinine 0.9, glucose 111, calcium 8.9. ASSESSMENT AND PLAN: 1. Acute partial small bowel obstruction versus ileus. I do believe this is better. She is already tolerating p.o. No more nausea or vomiting. She has been ambulating. She is receiving lactulose twice a day, and I started her on a suppository. We will wait for a bowel movement so we can make sure that this patient has bowel function again. 2. Acute on chronic systolic heart failure exacerbation with an ejection fraction of 25%. Status post implantable cardioverter-defibrillator, resolved. Continue with the same management. She has no complaint of shortness of breath at this moment. 3. History of coronary artery disease, aware. Continue with beta blockers and statins. She is not complaining of chest pain. She is on warfarin. She is not on aspirin. 4. Atrial fibrillation with rapid ventricular response. Continue with same management, stable. 5. Severe cardiomyopathy, likely ischemic. Continue with same management. 6. Right lower lobe pneumonia, resolved. 7. Hypothyroidism. Continue with Synthroid. 8. History of cerebrovascular accident, status post left upper extremity weakness. It looks like she is not on aspirin since she has been on Coumadin as per the history given by the patient. 9. Hematuria, resolved. cc: Brad Moreira MD
[2018-10-08] MEDS ORDERED: NEOSPORIN OINTMENT PACKET TOP ONE (15:55)
--- NOTE | 2018-10-09 06:52 | DISCHARGE SUMMARY ---
ADMISSION DATE: 09/19/2018 DISCHARGE DATE: 10/08/2018 DISCHARGE DIAGNOSES: 1. Partial small bowel obstruction versus ileus. 2. Acute on chronic systolic heart failure exacerbation with an ejection fraction of 25%. 3. History of coronary artery disease. 4. Atrial fibrillation with rapid ventricular response, resolved. 5. Severe cardiomyopathy likely ischemic. 6. Right lower lobe pneumonia, resolved. 7. History of CVA with left upper extremity weakness. 8. Hematuria, resolved. CONSULTANTS: 1. Cardiology Department Dr. Daniel Mcclellan. 2. Surgery Department, Dr. Anand Garcia. PROCEDURES PERFORMED: 1. Echocardiogram dated 09/19/2018 that showed ventricular chamber appears to be dilated, systolic function is significantly impaired with ejection fraction estimated at 20 to 25% with multiple areas of wall motion abnormality. Pacemaker is noted on the right side of the heart, right ventricle appears to be mildly enlarged. The atria appears to be enlarged. Aortic valve shows some thickening of the cusps with mild degree of regurgitation, mitral valve shows mild to moderate degree of regurgitation, atrial fibrillation. Tricuspid valve shows mild degree of regurgitation. Pulmonary artery pressure estimated at 37 mmHg, there is no pericardial effusion. 1. Chest x-ray dated 09/19/2018. Impression: Findings which are suggestive of mild CHF. 2. Abdominal CT scan dated 09/23/2018. Impression: Findings consistent with high grade small bowel obstruction, small bilateral pleural effusion and bibasilar atelectasis. 3. Abdominal x-ray dated . Impression: There is at least a partial small bowel obstruction. 4. Small-bowel series dated 10/01/2018. Impression: No emptying into the colon through 8 hours. 5. Followup small bowel series dated 10/02/2018: Impression: Interval passage of a swallowed barium from small-bowel series in the right colon. There are also residual barium in the distal small bowel. 6. Abdominal x-ray dated 10/03/2018: Impression: No evidence of bowel obstruction. HOSPITAL COURSE: An 83-year-old, female presented to [facility] ER with a chief complaint of shortness of breath and nonproductive cough. She was admitted on 09/19/2018. She was seen at [facility] ER a few days before, and she was told that she has some fluid around the heart, and was given some cough syrup, and the amount of Lasix and spironolactone. She states that she took the medications as prescribed, but had no improvement in her shortness of breath and cough. The day of admission the oxygen saturation was around 97 on room air. ER chest x-ray showed probably an infiltrate at the right base, and cardiomegaly likely congestive heart failure. She was transferred to the medical floor for treatment. Echocardiogram showed an ejection fraction of 20 to 25% with multiple areas of wall motion abnormality. She was getting treatment with diuretics, but she was not getting better. The Cardiology Department evaluated this patient, and they recommended to continue with antibiotics, diuresis and conservative cardiovascular management overall. The patient was improving a little bit on a daily basis, but she started having abdominal distention. At some point, she was not passing gas. Because of the distention, it was more difficult to breathe for this patient and shortness of breath was getting worse. On 09/23/2009, we did an abdomen and pelvis CT scan that showed high-grade small bowel obstruction, small bilateral pleural effusion and bibasilar atelectasis. NG tube was placed with intermittent suction to decompress the abdomen. Surgery Department evaluated this patient. Overall, we did conservative management. We did multiple x-rays of the abdomen and also thorax. These could be also associated with an ileus. We did a small bowel series that on 10/01/2018 showed that the dye was not emptying into the colon through 8 hours, but we continued with conservative management. We took care of the electrolyte imbalance just to make sure that this was not related with bowel dysfunction. Surgery evaluated this patient on a daily basis. Cardiology Department also on board. Then, the patient started passing gas. The x-ray of the abdomen looks better as well as the chest. On 10/03/2018, the x-ray of the abdomen showed an interval improvement. This patient was placed on a diet. She was passing gas on a daily basis, and today she had a large bowel movement. Today, this patient is asymptomatic. She is not complaining of abdominal pain or shortness of breath. This patient will be discharged home and asked to followup by her primary care doctor and Cardiology Department. DISCHARGE EXAMINATION: Vital Signs: Temperature 98.3 degrees, pulse 70, respiratory rate 20, blood pressure 121/60 and oxygen saturation 98 percent on room air. HEENT: Head normocephalic. No trauma. PERRLA. Neck: Supple. No JVD. No masses. Central trachea. Chest: Clear to auscultation. No wheezing. No rales. Abdomen: Soft, nontender, and nondistended. No hepatosplenomegaly. Positive bowel sounds. Extremities: No edema. No clubbing. No cyanosis. Neurological: The patient is alert and oriented x3. No focal deficits. LABORATORY: Sodium 141, potassium 3.8, chloride 104, bicarbonate 22, BUN 17, creatinine 9, glucose 111, and calcium 8.9. DISCHARGE MEDICATIONS: 1. [place]-3 fatty acids/fish oil 1000 mg p.o. b.i.d. 2. Vitamin D3 1000 units p.o. daily. 3. Digoxin 125 mcg p.o. daily. 4. Warfarin 2.5 mg p.o. at bedtime. 5. Amiodarone 200 mg p.o. daily. 6. Atorvastatin 20 mg p.o. at bedtime. 7. Spironolactone 25 mg p.o. b.i.d. 8. Furosemide 40 mg p.o. daily. 9. Allopurinol 100 mg p.o. daily. 10. Synthroid 50 mcg p.o. daily. 11. Tearisol ophthalmic solution as needed. 12. Lactulose 30 mL p.o. b.i.d. 13. Carvedilol 3.125 mg p.o. b.i.d. 14. Dulcolax suppository as needed daily. FOLLOW UP: She has been instructed to follow up with Cardiology in 1 week. TIME SPENT: Time discharging this patient 40 minutes. cc: Brad Moreira MD
== END 2018-10-08 17:27 | disposition home or self-care (01) | DRG 291 ==
LOC: P.ED 09:40 → SUATTDRO 11:04 → P.MEDSURG 11:04 → 4N 09-26 17:32
PROVIDERS: ATTEND Internal Medicine
CPT/HCPCS: 36415; 36569; 71010; 71020; 71045; 71046; 74019; 74020; 74022; 74176; 74250; 80048; 80053; 81001; 82150; 82465; 82805; 82948; 83605; 83690; 83735; 83880; 84100; 84134; 84439; 84443; 84450; 84478; 85025; 85610; 85730; 86850; 86900; 86901; 87040; 87070; 87088; 87205; 89220; 93005; 93010; 93306; 94640; 94761; 94799; 96365; 96375; 97116; 97163; 97164; 97165; 97530; 97535; 99285; A9270; C8929; C9113; J1160; J1650; J1940; J1956; J2543; J3430; J3480; J7050; Q9957; S0164; S0179; XXXXX

== ENCOUNTER 2019-01-24 14:08 | Inpatient (IN) ==
[2019-01-24 14:40] LABS: BASO# 0.02 X1000 (0.0-0.2); BASO% 0.2 % (0.0-0.8); EOS# 0.02 X1000 (0.0-0.7); EOS% 0.2 % (0.0-10.0); HEMATOCRIT 39.9 % (37.0-47.0); HEMOGLOBIN 13.6 g/dL (12.0-16.0); IMM GRAN# 0.06 X1000 (0.0-0.04); IMM GRAN% 0.5 % (0.0-0.5); LYMPH# 1.68 X1000 (1.2-3.4); LYMPH% 12.8 % (20.5-51.1); MCH 31.6 PG (27-31); MCHC 34.1 g/dL (33-37); MCV 92.6 FL (81-99); MONO# 1.25 X1000 (0.11-0.59); MONO% 9.5 % (1.7-9.3); MPV 11.1 FL (7.4-10.4); NEUT# 10.09 X1000 (1.4-6.5); NEUT% 76.8 % (42.2-75.2); PLT 193 X1000 (130-400); RBC 4.31 XMIL (4.2-5.4); RDW 14.6 % (11.5-14.5); WBC 13.12 X1000 (4.8-10.8)
--- NOTE | 2019-01-24 15:05 | Diag Imaging Result Doc PS360 ---
EXAM: CHEST-2 VIEWS HISTORY: sob TECHNIQUE: Chest two views COMPARISON: 10/07/2018 FINDINGS: The lungs are well expanded. The heart is enlarged and there is a left-sided pacemaker. The vessels are not distended. There are mild increased interstitial markings in the right lower lobe. No pleural effusions. IMPRESSION: 1.Small right lower lobe infiltrate 2.Cardiomegaly Electronically signed by Octavio Kim 01/24/2019 3:03 PM
[2019-01-24 15:46] LABS: POTASSIUM 4.7 mmol/L (3.5-5.1)
[2019-01-24 15:47] LABS: ALBUMIN 3.5 g/dL (3.5-5.0); CALCIUM 8.6 mg/dL (8.8-10.2); CREATININE 1.3 mg/dL (0.5-0.9); TOTAL BILIRUBIN 1.4 mg/dL (0.20-1.00); TOTAL PROTEIN 6.4 g/dL (6.3-8.3)
[2019-01-24 16:11] LABS: PROTIME 22.4 Seconds (11.0-16.0)
[2019-01-24 16:12] LABS: INR 1.87
[2019-01-24 16:13] LABS: PTT 45.6 Seconds (22.3-41.8)
[2019-01-24] MEDS ORDERED: ROCEPHIN 1 GM in NS 50 ML IV ONE (16:42)
--- NOTE | 2019-01-24 17:07 | PROVIDER DOCUMENTATION ---
This chart was entered by Gigi Reddy Scribe, acting as scribe for Nu Dawson MD. HPI-Respiratory General - General Chief Complaint: Shortness of Breath Stated Complaint: SOB Time Seen by Provider: 01/24/19 14:17 Source: patient Allergies/Adverse Reactions: Patient Allergies Allergy/AdvReac Type Severity Reaction Status Date / Time No Known Allergies Allergy Verified 10/07/17 14:44 Home Medications: Home Medication List Medication Instructions Recorded Confirmed Last Taken Type Allopurinol 100 mg PO DAILY 10/07/17 01/24/19 09/18/18 08:00 History Amiodarone [Cordarone] 200 mg PO DAILY 10/07/17 01/24/19 09/18/18 08:00 History Atorvastatin Calcium 20 mg PO HS 10/07/17 01/24/19 09/18/18 21:00 History Cholecalciferol (Vit D3) [Vitamin 1,000 unit PO DAILY 10/07/17 09/19/18 09/18/18 08:00 History D3] Digoxin 125 mcg PO DAILY 10/07/17 01/24/19 09/18/18 08:00 History Levothyroxine [Synthroid] 0.05 mg PO DAILY 10/07/17 01/24/19 09/19/18 07:00 History [place]-3 Fatty Acids/Fish Oil [Fish 1,000 mg pe PO BID 10/07/17 09/19/18 09/18/18 21:00 History Oil 1,000 mg Capsule] Spironolactone 25 mg PO DIRECTED 10/07/17 01/24/19 09/18/18 21:00 History Warfarin [Coumadin] 2.5 mg PO DIRECTED 10/07/17 01/24/19 09/18/18 21:00 History Guaifenesin/Codeine Phosphate 5 ml PO Q6H PRN #120 ml 09/14/18 09/19/18 09/17/18 22:00 Rx [Codeine-Guaifen 10-100 mg/5 ml] Furosemide 20 mg PO TID 09/19/18 01/24/19 09/18/18 08:00 History Bisacodyl [Dulcolax] 10 mg WI DAILY supp 10/08/18 Unknown Rx Carvedilol [Coreg] 3.125 mg PO BID #120 tab 10/08/18 01/24/19 Unknown Rx Lactulose 30 ml PO BID #1 udc 10/08/18 Unknown Rx Polyvinyl Alcohol Eye Drops 0 ml OPH PRN PRN bottle 10/08/18 Unknown Rx [Tearisol Oph Solution] Chlordiazepoxide [Librium] 10 mg PO BID 01/24/19 01/24/19 Unknown History Dipyridamole/Aspirin S.a. 1 ea PO BID 01/24/19 Unknown History [Aggrenox] Hydrochlorothiazide 25 mg PO DAILY 01/24/19 Unknown History Ipratropium/Albuterol Sulfate 3 ml INHALATION Q4-6H PRN PRN 01/24/19 01/24/19 Unknown History [Iprat-Albut 0.5-3(2.5) mg/3 ml] Metoprolol [Lopressor] 50 mg PO DAILY 01/24/19 01/24/19 Unknown History Warfarin [Coumadin] 2.5 mg PO DIRECTED 01/24/19 01/24/19 Unknown History - History of Present Illness-Resp Nature of Presenting Problem: Pt is a 83 yof who presents to the ED via EMS with a CC of SOB. Pt reports that she has had a cough for two weeks. Pt reports that she just finished 2x rounds of antibiotics. Pt reports a hx of CHF, 2x strokes, HBP, and kidney disease. Pt denies any heart surgeries. Quality of Pain: reports: tightness Severity in ED: reports: mild Onset/Duration: reports: other (Two weeks) Timing: reports: still present Exposure: reports: unknown cause Cough Quality/Degree: reports: moderate Episode Frequency: no prior episodes Current Respiratory Medication Therapy: Initiated see nurses note Associated Symptoms: reports: cough, shortness of breath. denies: chest pain/soreness, dizziness, fever/chills Similar Symptoms Previously?: Yes Recently seen or treated by another doctor?: Yes Review of Systems - Adult - REVIEW OF SYSTEMS - ADULT Constitutional: reports: see HPI. denies: chills, fever, fatique, night sweats, weight loss Eyes: reports: no symptoms reported Ears, Nose, Mouth & Throat: reports: no symptoms reported. denies: ear pain, sinus problem, throat pain Cardiovascular: reports: no symptoms reported Respiratory: reports: cough, shortness of breath. denies: hemoptysis, pleurisy, wheezing Gastrointestinal: reports: no symptoms reported Genitourinary: reports: no symptoms reported Musculoskeletal: reports: no symptoms reported Integumentary: reports: no symptoms reported Neurological: reports: no symptoms reported Psychiatric: reports: no symptoms reported Endocrine: reports: no symptoms reported Hematologic/Lymphatic: reports: no symptoms reported Allergic/Immunologic: reports: no symptoms reported All Other Systems: Reviewed and Negative Past History - Adult - PAST MEDICAL HISTORY-ADULT Review of Records: reports: Nursing Assessment Review, Medications Reviewed, Social history reviewed & non-contributory. Major Childhood Illnesses: reports: denies history Cardiovascular: reports: A-Fib, CAD, congenital heart disease, CHF, HTN, hyperlipidemia Respiratory: reports: denies history Gastrointestinal: reports: denies history Obstetrical/Gynecological: reports: denies history Genitourinary: reports: denies history Musculoskeletal: reports: denies history Neurological: reports: CVA (x 2 in 2006) Psychiatric: reports: anxiety Endocrine/Immune: reports: denies history Other Conditions: reports: denies history - PRIOR SURGERIES/PROCEDURES Surgical/Procedure History: reports: appendectomy, cholecystectomy, pacemaker, hysterectomy, hernia repair, back/neck - PRIOR HOSPITALIZATIONS Prior Hospitalizations: reports: for other non-related - IMMUNIZATION STATUS Childhood Immunizations: See Nurse Assessment Flu Vaccine: See Nurse Assessment - FAMILY HISTORY Family History: reviewed, not pertinent - SOCIAL HISTORY Smoking: cigarettes (former) Substance Use: none/never Physical Exam-General - PHYSICAL EXAM-ADULT Initial Vital Signs Reviewed: Yes - CONSTITUTIONAL General Appearance: appears well, alert, mild distress. negative: anxious, lethargic - NECK Neck: normal inspection, limited range of motion. negative: full range of motion, lymphadenopathy, thyromegaly - RESPIRATORY Respiratory: chest non-tender, crackles (bilateral), rales. negative: wheezing, prolonged expiration, splinting - CARDIOVASCULAR Cardiovascular: normal peripheral pulses, regular rate, rhythm, no edema, no gallop, no JVD, no murmur. negative: tachycardia, diastolic murmur, systolic murmur, extra beats - GASTROINTESTINAL (ABDOMEN) Abdominal Exam: non tender, soft. negative: rigid, rebound, tenderness, hernia - MUSCULOSKELETAL Extremity: normal range of motion, non-tender, swelling (bilateral lower extremities). negative: deformity, erythema, tenderness - SKIN Integumentary: normal color, warm/dry. negative: ecchymosis, erythema, laceration(s), tenderness - NEUROLOGIC Neurologic: grossly normal. negative: aphasia, facial droop, motor weakness, sensory deficit - PSYCHIATRIC Psych/Mental Status: normal mood/affect, oriented x 3. negative: disoriented x 3, anxious, depressed affect, paranoid - HEART Score HEART Score: History: Slightly Suspicious HEART Score: ECG: Non-Specific Repolarization Disturbance/LBBB/PM HEART Score: Age: > or = 65 Years HEART Score: Risk Factors for Atherosclerotic Disease: 1 or 2 Risk Factors HEART Score: Troponin: < or = Normal Limit Total HEART Score:: 4 Progress - PLAN OF CARE/RESULTS Progress/Plan/Lab Results: Vital Signs - 8 hr 01/24/19 14:07 01/24/19 16:01 Temperature 98.4 F Pulse Rate 72 70 Respiratory Rate 12 Blood Pressure 139/94 124/74 O2 Sat by Pulse Oximetry 95 96 Laboratory Results - last 24 hr 01/24/19 01/24/19 01/24/19 14:28 15:06 15:06 WBC 13.12 H RBC 4.31 Hgb 13.6 Hct 39.9 MCV 92.6 MCH 31.6 H MCHC 34.1 RDW Std Deviation 14.6 H Plt Count 193 MPV 11.1 H Immature Gran % (Auto) 0.5 Neut % (Auto) 76.8 H Lymph % (Auto) 12.8 L [place] % (Auto) 9.5 H Eos % (Auto) 0.2 Baso % (Auto) 0.2 Immature Gran # (Auto) 0.06 H Neut # (Auto) 10.09 H Lymph # (Auto) 1.68 [place] # (Auto) 1.25 H Eos # (Auto) 0.02 Baso # (Auto) 0.02 PT INR PTT (Actin FS) Sodium 136 Potassium 4.7 Chloride 97 L Carbon Dioxide 27 Anion Gap 12 BUN 19 Creatinine 1.3 H Estimated GFR/1.73 m2 39 BUN/Creatinine Ratio 15 Glucose 167 H Calculated Osmolality 278 Calcium 8.6 L Total Bilirubin 1.40 H AST 78 H ALT 91 H Alkaline Phosphatase 82 Creatine Kinase 82 Troponin T [id number] Pept 2940 H Total Protein 6.4 Albumin 3.5 Globulin 3.0 Albumin/Globulin Ratio 1.0 01/24/19 01/24/19 15:06 15:06 WBC RBC Hgb Hct MCV MCH MCHC RDW Std Deviation Plt Count MPV Immature Gran % (Auto) Neut % (Auto) Lymph % (Auto) [place] % (Auto) Eos % (Auto) Baso % (Auto) Immature Gran # (Auto) Neut # (Auto) Lymph # (Auto) [place] # (Auto) Eos # (Auto) Baso # (Auto) PT 22.4 H INR 1.87 PTT (Actin FS) 45.6 H Sodium Potassium Chloride Carbon Dioxide Anion Gap BUN Creatinine Estimated GFR/1.73 m2 BUN/Creatinine Ratio Glucose Calculated Osmolality Calcium Total Bilirubin AST ALT Alkaline Phosphatase Creatine Kinase Troponin T < 0.010 [id number] Pept Total Protein Albumin Globulin Albumin/Globulin Ratio Orders Category Date Time Status Cardiac Monitoring DIRECTED Care 01/24/19 14:18 Active Oxygen Therapy- ED Nursing DIRECTED Care 01/24/19 14:18 Active Saline Loc NOW Care 01/24/19 14:18 Active CHEST-2 VIEWS [RAD] Stat Exams 01/24/19 14:18 Completed BLOOD CULTURE [BLDCUL] Stat Lab 01/24/19 15:32 Ordered CBC WITH ELECTRONIC DIFF [HEME] Stat Lab 01/24/19 14:28 Completed CK PROFILE [SP CHEM] Stat Lab 01/24/19 15:06 Completed COMPREHENSIVE METABOLIC PANEL [CHEM] Stat Lab 01/24/19 15:06 Completed PRO B-NATRIURETIC PEPTIDE Stat Lab 01/24/19 15:06 Completed PROTIME WITH INR [COAG] Stat Lab 01/24/19 15:06 Completed PTT [COAG] Stat Lab 01/24/19 15:06 Completed TROPONIN T Stat Lab 01/24/19 15:06 Completed CefTRIAXONE [Rocephin] 1 gm Med 01/24/19 16:42 Active 0.9% Sodium Chloride Inj [Ns] 50 ml IV NOW CP/SOB/Palp >45 yrs of Age Stat Oth 01/24/19 14:18 Ordered EKG [EKG] Stat Ther 01/24/19 14:18 Ordered Result Diagrams: 01/24/19 14:28 01/24/19 15:06 - EKG 1 Time of EKG reading by physician:: 14:15 EKG Read and Signed by:: Nu Dawson EKG Interpretation (*Must complete 3 of following elements*): Abnormal Rate: 70 Rhythm: AV dual-paced rhythm WI Interval: normal Comments: Abnormal ECG - CONSULTS/PCP/HOSPITALIST Notification #1 *Consult/PCP/Hospitalist*: Dr Velasco Time Discussed: 17:05 Consult Disposition: Admit Departure - Departure Date of Disposition Decision: 01/24/19 Time of Disposition Decision: 17:05 DIAGNOSIS: CHF (congestive heart failure), Pneumonia Disposition: ADMITTED INPATIENT 09 Certified Medical Emergency: Emergent Condition: Good Referrals and Follow-Ups: None,PCP [Primary Care Provider] - - Critical Care Note This patient required my direct & personal management of CC.: No Attestation - Physician/ OTTO Attestation Patient care was provided by Advanced Practice Provider:: No The physician spent face to face time with patient:: Yes Advanced Practice Provider documentation review:: Supervising physician onsite and consulted in the evaluation and care of this patient. The physician did have a face to face encounter with the patient. This chart was documented by the indicated scribe, (Gigi Reddy, Scribe) and accurately reflects the services I performed and decisions made by me, Nu Dawson MD, as attested by the provider's signature.
--- NOTE | 2019-01-24 17:30 | EKG Report ---
Test Performed on : 01/24/2019 2:15:05 PM Test Reason : sob Blood Pressure : / mmHG Vent. Rate : 070 BPM Atrial Rate : 394 BPM P-R Int : 166 ms QRS Dur : 212 ms QT Int : 494 ms P-R-T Axes : 000 -57 094 degrees QTc Int : 533 ms AV dual-paced rhythm Abnormal ECG When compared with ECG of 01-OCT-2018 21:04, No significant change was found Unconfirmed Result
[2019-01-24] MEDS ORDERED: NS 1,000 ML IV SCH (18:05)
[2019-01-24] MEDS ORDERED: TYLENOL PO PRN (18:05)
[2019-01-24] MEDS ORDERED: LOVENOX SUBQ SCH (18:05)
[2019-01-24] MEDS: ZITHROMAX 500 MG/NS 500 MG/250 ML IVPB IV SCH (18:39)
[2019-01-24] MEDS: DUONEB (A & A) INH SCH ×2 (19:34→23:04)
--- NOTE | 2019-01-24 19:50 | HISTORY AND PHYSICAL ---
PRIMARY CARE PHYSICIAN: Dr. Jennifer Clark. CHIEF COMPLAINT: Shortness of breath and a cough that has been present for 2 weeks, and progressively worsened. HISTORY OF PRESENTING ILLNESS: This is an 83-year-old female who presents to [facility] ER with complaints of shortness of breath. States she has had a cough for 2 weeks. She states she has been on 2 rounds of antibiotics for a UTI recently, prescribed by her primary care physician. When she arrived to the emergency room, she had a white blood cell count of 13.12. Her creatinine was 1.3. AST of 78, ALT 91, total bilirubin 1.40. ProBNP was 2940. Chest x-ray showed a small right lower lobe infiltrate, so she is being admitted for further evaluation and treatment. PAST MEDICAL HISTORY: CHF, CVA x2, chronic kidney disease, atrial fibrillation, coronary artery disease, hypertension, hyperlipidemia and anxiety. PAST SURGICAL HISTORY: Appendectomy, cholecystectomy, pacemaker, hysterectomy, hernia repair and back and neck surgery. FAMILY HISTORY: Reviewed and noncontributory. SOCIAL HISTORY: She currently lives with her . Denies any tobacco, alcohol or illicit drug use. ALLERGIES: She has no known drug allergies. HOME MEDICATIONS: We will need to obtain a current list, reconcile, review and restart as appropriate. We will place an order for nursing to update and confirm home medications. LABORATORY DATA: Showed a white blood cell count of 13.12, hemoglobin 13.6, hematocrit 39.9, platelets 193,000. PT and INR of 22.4 and 1.87. Sodium 136, potassium 4.7, chloride 97, CO2 is 27, BUN of 19, creatinine 1.3, glucose 167, total bilirubin of 1.40, AST of 78, ALT 91. Cardiac enzymes were negative. ProBNP was 2940. DIAGNOSTIC DATA: Chest x-ray showed a small right lower lobe infiltrate and cardiomegaly. REVIEW OF SYSTEMS: She denied any fever, chills, blurred vision, dizziness or chest pain. She had a nonproductive cough and shortness of breath. She denied any abdominal pain, nausea, vomiting, constipation, diarrhea, burning or hurting with urination. Again, it is noted that she has been on 2 rounds of antibiotics recently for her UTI. PHYSICAL EXAMINATION: VITAL SIGNS: On arrival she had a temperature of 98.4 degrees, pulse 72, respirations 12, blood pressure was 139/94, saturating 95% on room air. GENERAL: This is an 83-year-old female who is sitting up in the bed and answers questions appropriately. HEENT: Normocephalic, atraumatic. Normal ENT inspection. Oropharynx and nares are clear. EYES: Pupils are equal, round and reactive to light and accommodation. Extraocular movements are intact. NECK: Normal inspection, normal range of motion. LUNGS: Scattered crackles and rhonchi throughout entire posterior lung kaplan. Equal lung expansion and chest wall movement noted. O2 via nasal cannula. HEART: Regular rate and rhythm. No murmurs, rubs or gallops. ABDOMEN: Soft, nontender, nondistended. Bowel sounds are present x4 quadrants. MUSCULOSKELETAL: She moves all extremities well. Normal range of motion. NEUROLOGICAL: Cranial nerves 2-12 appear grossly intact. ASSESSMENT: 1. Right lower lobe pneumonia. 2. Mild leukocytosis. 3. Elevated liver function tests. 4. Acute kidney injury. PLAN: She will be admitted to the medical unit at [place], placed on telemetry, O2 per protocol. We will place on Rocephin 1 g IV q.24 and azithromycin 500 IV q.24, DuoNeb q.4 hours some gentle hydration at 50 mL/h. We will recheck a CBC, BMP in the a.m. We will, again, need to update and confirm home medications. Further orders after seen by attending. Dictated by BRIANNA Roberts for Wander Velasco MD cc: BRIANNA Roberts MD Faye Wilson, MD
[2019-01-25] MEDS: DUONEB (A & A) INH SCH ×6 (03:05→23:40)
[2019-01-25 06:34] LABS: BASO# 0.03 X1000 (0.0-0.2); BASO% 0.2 % (0.0-0.8); EOS# 0.05 X1000 (0.0-0.7); EOS% 0.4 % (0.0-10.0); HEMATOCRIT 39.7 % (37.0-47.0); HEMOGLOBIN 13.1 g/dL (12.0-16.0); IMM GRAN# 0.04 X1000 (0.0-0.04); IMM GRAN% 0.3 % (0.0-0.5); LYMPH# 1.79 X1000 (1.2-3.4); LYMPH% 13.8 % (20.5-51.1); MCV 93.9 FL (81-99); MONO# 1.76 X1000 (0.11-0.59); MONO% 13.6 % (1.7-9.3); MPV 11.3 FL (7.4-10.4); NEUT# 9.26 X1000 (1.4-6.5); NEUT% 71.7 % (42.2-75.2); PLT 195 X1000 (130-400); RBC 4.23 XMIL (4.2-5.4); RDW 14.6 % (11.5-14.5); WBC 12.93 X1000 (4.8-10.8)
[2019-01-25 06:43] LABS: CALCIUM 8.5 mg/dL (8.8-10.2); CREATININE 1.3 mg/dL (0.5-0.9); POTASSIUM 4.1 mmol/L (3.5-5.1)
--- NOTE | 2019-01-25 11:18 | PROGRESS NOTE ---
DATE: 01/25/2019 SUBJECTIVE: Patient is sitting up in bed, has a productive cough. Otherwise, no complaints voiced. OBJECTIVE: Vital signs: Temperature 97.5 degrees, pulse 70, respirations 18, blood pressure 120/69, saturating 96% on O2 via nasal cannula. General: This is an 83-year-old female who is lying in the bed and answers questions appropriately. HEENT: Normocephalic, atraumatic. Normal ENT inspection. Oropharynx and nares are clear. Eyes: Pupils are equal, round, reactive to light accommodation. Extraocular movements are intact. Neck: Normal inspection. Normal range of motion. Lungs: With decreased breath sounds to bilateral bases, equal lung expansion, chest wall movement noted. Productive cough noted also of a thick yellowish- green sputum. Heart: Regular rate and rhythm. No murmurs, rubs, or gallops. Abdomen: Soft, nontender, nondistended. Bowel sounds are present x4 quadrants. Musculoskeletal: She has 5/5 strength x4 extremities. Neurological: The cranial nerves 2-12 appear grossly intact. LABORATORY DATA: White blood cell count of 12.93, hemoglobin 13.1, hematocrit 39.7, platelets 195,000. Sodium 136, potassium 4.1, chloride 95, BUN of 19 with a creatinine of 1.3, glucose 146. ASSESSMENT: 1. Right lower lobe pneumonia. 2. Mild leukocytosis. 3. Elevated liver function tests. 4. Acute kidney injury. PLAN: We will continue her O2 per protocol. Continue her IV antibiotics of Rocephin 1 gram IV q.24 and azithromycin 500 IV q.24, DuoNeb q.4 hours. Continue her gentle hydration at 50 mL/hour. We will recheck a CBC and CMP in the a.m. and further orders after being seen by attending. Dictated by BRIANNA Roberts for Wander Velasco MD cc: BRIANNA Roberts MD
[2019-01-25] MEDS ORDERED: DULCOLAX PR PRN (15:20)
[2019-01-25] MEDS ORDERED: COUMADIN PO SCH ×2 (15:30)
[2019-01-25] MEDS ORDERED: SYNTHROID PO SCH (15:30)
--- NOTE | 2019-01-25 15:55 | PROGRESS NOTE ---
DATE: 01/25/2019 SUBJECTIVE: This is a [id number] encounter note with Mariana Valentin. The patient is still very tired and sleepy. Medications have been updated. The family had concerns about that. The patient was admitted for treatment. Workup in the ER was unremarkable. She has a right lower lobe pneumonia. Continue treatments and follow closely. The patient we will continue to monitor closely. Chest x-ray showed she was fair. cc: Wander Velasco MD
[2019-01-25] MEDS: ROCEPHIN 1 GM in NS 50 ML IV SCH ×2 (15:58→17:49)
[2019-01-25] MEDS: CORDARONE PO SCH (17:47)
[2019-01-25] MEDS: ZITHROMAX 500 MG/NS 500 MG/250 ML IVPB IV SCH (17:49)
[2019-01-25] MEDS ORDERED: LIPITOR PO SCH (21:00)
[2019-01-25] MEDS: ROBITUSSIN-AC PO PRN (22:28)
[2019-01-25] MEDS: LIBRIUM PO SCH (22:30)
[2019-01-25] MEDS: FISH OIL CONCENTRATE PO SCH (22:30)
[2019-01-25] MEDS: COREG PO SCH (22:30)
[2019-01-26] MEDS: DUONEB (A & A) INH SCH ×6 (02:55→22:49)
[2019-01-26] MEDS: SYNTHROID PO SCH (06:14)
[2019-01-26] MEDS: ROBITUSSIN-AC PO PRN ×2 (06:15→14:36)
--- NOTE | 2019-01-26 07:29 | Diag Imaging Result Doc PS360 ---
EXAM: CHEST-PORTABLE - 01/26/2019 HISTORY: dyspnea TECHNIQUE: Portable chest COMPARISON: 01/24/2019 FINDINGS: There is stable cardiomegaly. There is transvenous cardiac pacemaker again seen. There is ill-defined interstitial infiltrate or edema on the right. There is no pleural effusion or pneumothorax identified. IMPRESSION: Stable cardiomegaly. Ill-defined interstitial infiltrate or edema on the right. Electronically signed by Dev Tadeo 01/26/2019 7:27 AM
[2019-01-26 07:44] LABS: BASO# 0.03 X1000 (0.0-0.2); BASO% 0.3 % (0.0-0.8); EOS# 0.11 X1000 (0.0-0.7); EOS% 1.2 % (0.0-10.0); HEMATOCRIT 38.1 % (37.0-47.0); HEMOGLOBIN 12.6 g/dL (12.0-16.0); IMM GRAN# 0.07 X1000 (0.0-0.04); IMM GRAN% 0.8 % (0.0-0.5); LYMPH# 1.66 X1000 (1.2-3.4); LYMPH% 18.3 % (20.5-51.1); MCH 31.4 PG (27-31); MCHC 33.1 g/dL (33-37); MONO# 1.08 X1000 (0.11-0.59); MONO% 11.9 % (1.7-9.3); MPV 11.3 FL (7.4-10.4); NEUT% 67.5 % (42.2-75.2); PLT 214 X1000 (130-400); RBC 4.01 XMIL (4.2-5.4); RDW 14.6 % (11.5-14.5); WBC 9.05 X1000 (4.8-10.8)
[2019-01-26 07:53] LABS: INR 1.68; PROTIME 20.6 Seconds (11.0-16.0)
[2019-01-26 08:07] LABS: ALBUMIN 2.8 g/dL (3.5-5.0); CALCIUM 8.5 mg/dL (8.8-10.2); CREATININE 1.1 mg/dL (0.5-0.9); POTASSIUM 4.1 mmol/L (3.5-5.1); TOTAL BILIRUBIN 0.7 mg/dL (0.20-1.00); TOTAL PROTEIN 6.5 g/dL (6.3-8.3)
[2019-01-26] MEDS: LIBRIUM PO SCH (09:46)
[2019-01-26] MEDS: VITAMIN D PO SCH (09:47)
[2019-01-26] MEDS: CORDARONE PO SCH (09:47)
[2019-01-26] MEDS: FISH OIL CONCENTRATE PO SCH ×2 (09:47→20:12)
[2019-01-26] MEDS: LANOXIN PO SCH (09:47)
[2019-01-26] MEDS: COREG PO SCH ×2 (09:47→20:12)
[2019-01-26] MEDS: ZYLOPRIM PO SCH ×2 (09:47)
[2019-01-26] MEDS ORDERED: LIBRIUM PO PRN (16:09)
[2019-01-26] MEDS: ROCEPHIN 1 GM in NS 50 ML IV SCH (17:23)
[2019-01-26] MEDS: ZITHROMAX 500 MG/NS 500 MG/250 ML IVPB IV SCH (17:23)
--- NOTE | 2019-01-26 19:40 | PROGRESS NOTE ---
DATE: 01/26/2019 SUBJECTIVE: The patient has no major complaints except for cough. She required some cough medicine last night. Per her it did make her feel better and make her rest. She, however, does not want to take any medication with codeine in it. In any case, she feels like her is not controlled. That being said, she does feel like she is breathing overall a bit better. OBJECTIVE: Her vital signs have been pretty stable. Blood pressure 109/79, heart rate of 75, respiratory rate 18, temperature was unremarkable, 97.4. Saturations were 99%. She is on 2 L. She is not usually on oxygen.Cardiovascular: Regular rate and rhythm. Pulmonary: Bilateral breath sounds, clear to auscultation. GI: Soft, nontender, nondistended. Bowel sounds are positive. She still has some rales at the bases. She has difficulty sitting up. LABORATORY DATA: White count is 9, hemoglobin and hematocrit 12 and 38, platelets 214,000. Creatinine 1.1. AST and ALT are up a bit, 142 and 146. ASSESSMENT AND PLAN: Problem list: 1. Acute respiratory failure secondary to pneumonia. We will continue breathing treatments and antibiotics, and we will continue to follow. 2. Elevated liver function tests. Really unclear etiology. She is on amiodarone, which we will have to take into consideration, but we will need to analyze her for hepatitis. She had a high-grade small-bowel obstruction previously but I do not have any other evidence of liver issues. That was back in September. I think she was transferred to [facility] at that time. She is also on Lipitor, which I am going to go ahead and hold that until we can get all her testing done. 3. Hypothyroidism. She is stable on her current medications. 4. Right lower lobe pneumonia. She is continuing her treatments. 5. Disposition pending her clinical status. We will continue to follow closely. I do think she would benefit from rehab, but she is very adamant that she wants to go home when she gets out of the hospital. I just do not know how realistic that is going to be, considering her current level of functioning. She cannot sit up in bed. I am not sure how she will do at home, but we will get physical therapy to work with her and see how she does. 6. Atrial fibrillation, appears to be well controlled. We will continue to follow. cc: Wander Velasco MD
[2019-01-26] MEDS: COUMADIN PO SCH (20:12)
[2019-01-26] MEDS: ROBITUSSIN-DM PO PRN (20:13)
[2019-01-27] MEDS: DUONEB (A & A) INH SCH ×7 (03:05→22:39)
[2019-01-27] MEDS: SYNTHROID PO SCH (06:09)
[2019-01-27] MEDS: ROBITUSSIN-DM PO PRN ×3 (06:10→22:21)
[2019-01-27 07:19] LABS: BASO# 0.03 X1000 (0.0-0.2); BASO% 0.3 % (0.0-0.8); EOS# 0.19 X1000 (0.0-0.7); EOS% 2.1 % (0.0-10.0); HEMATOCRIT 37.4 % (37.0-47.0); IMM GRAN# 0.08 X1000 (0.0-0.04); IMM GRAN% 0.9 % (0.0-0.5); LYMPH# 1.38 X1000 (1.2-3.4); LYMPH% 15.1 % (20.5-51.1); MCH 30.5 PG (27-31); MCHC 32.1 g/dL (33-37); MCV 95.2 FL (81-99); MONO# 0.99 X1000 (0.11-0.59); MONO% 10.8 % (1.7-9.3); MPV 11.2 FL (7.4-10.4); NEUT# 6.49 X1000 (1.4-6.5); NEUT% 70.8 % (42.2-75.2); PLT 245 X1000 (130-400); RBC 3.93 XMIL (4.2-5.4); RDW 14.8 % (11.5-14.5); WBC 9.16 X1000 (4.8-10.8)
[2019-01-27 07:36] LABS: INR 1.38; PROTIME 17.7 Seconds (11.0-16.0)
[2019-01-27 07:41] LABS: ALBUMIN 2.8 g/dL (3.5-5.0); DIRECT BILIRUBIN 0.2 mg/dL (0.00-0.20); TOTAL BILIRUBIN 0.5 mg/dL (0.20-1.00); TOTAL PROTEIN 6.4 g/dL (6.3-8.3)
[2019-01-27] MEDS: COREG PO SCH ×2 (08:38→22:18)
[2019-01-27] MEDS: LANOXIN PO SCH (08:38)
[2019-01-27] MEDS: CORDARONE PO SCH (08:38)
[2019-01-27] MEDS: ALDACTONE PO SCH (08:40)
[2019-01-27] MEDS: FISH OIL CONCENTRATE PO SCH ×2 (08:40→22:17)
[2019-01-27] MEDS: VITAMIN D PO SCH (08:40)
[2019-01-27] MEDS: ZYLOPRIM PO SCH (08:40)
[2019-01-27 13:57] LABS: ALBUMIN 3.3 g/dL (3.5-5.0); CALCIUM 8.9 mg/dL (8.8-10.2); CREATININE 1.1 mg/dL (0.5-0.9); POTASSIUM 4.5 mmol/L (3.5-5.1); TOTAL BILIRUBIN 0.5 mg/dL (0.20-1.00); TOTAL PROTEIN 6.9 g/dL (6.3-8.3)
--- NOTE | 2019-01-27 14:15 | PROGRESS NOTE ---
DATE: 01/27/2019 SUBJECTIVE: Patient has no major complaints. She just feels weak and tired and she does seem weak and somewhat fatigued. OBJECTIVE: Blood pressure is 121/60, heart rate is 78, respiratory rate of 18, temperature 97.9 degrees, 99% on 2 L.Cardiovascular: Regular rate and rhythm. Pulmonary: Bilateral breath sounds clear to auscultation. GI: Soft, nontender, nondistended. Bowel sounds are positive. LABORATORY DATA: White count is 9, hemoglobin and hematocrit 12 and 37, platelets 245,000.. INR 1.3. AST and ALT of 133 and 153. PROBLEM LIST: 1. Acute respiratory failure secondary to pneumonia. She is on antibiotics, breathing treatments, slow improvement. On her pulmonary exam today I did not appreciate rales or significant shortness of breath. She seems better and her x-ray yesterday showed a vague infiltrate on the right, she has a decent infiltrate there. 2. Hepatitis. She has elevated AST and ALT. I am not quite sure what that is related to. She was on a statin, which I have discontinued. She is also on amiodarone which I have now discontinued, although I am not sure what we are going to replace it with. She is also on digoxin, Lopressor, reportedly Coreg, which I think I switched her to Coreg. She is on Coreg and Lopressor which I do not think she needs to be on both of those. But in any case, I have increased her Coreg. I think I will get a Cardiology opinion just to see if they also think this is amiodarone toxicity, which could also explain some of her weakness and not doing well. 3. Hypothyroidism is stable on her current medications. 4. Right lower lobe pneumonia. She is on antibiotics. We will continue to follow. DISPOSITION: Pending her clinical status. She refuses rehab, but she is very weak and I do not think at her baseline. PT has seen her, greatly appreciate their input. She walked about 10 feet. She is still very weak. She may end up needing rehab, but right now she is adamant about not pushing for that. Her dig level was therapeutic when she came in. I have again asked for Cardiology opinion just about her atrial fibrillation, although it is controlled but her medications and consideration for amiodarone toxicity and other options for controlling it. They may feel different. I have requested an ultrasound or I will just to better evaluate her liver, although I think she had that done not too long ago because she had a small bowel obstruction in September. cc: Wander Velasco MD
[2019-01-27] MEDS: ZITHROMAX PO SCH (17:28)
[2019-01-27] MEDS: ROCEPHIN 1 GM in NS 50 ML IV SCH (17:28)
[2019-01-27] MEDS ORDERED: COUMADIN PO SCH (21:00)
[2019-01-28] MEDS: DUONEB (A & A) INH SCH ×6 (03:23→23:03)
[2019-01-28] MEDS: ROBITUSSIN-DM PO PRN ×3 (05:18→21:17)
[2019-01-28] MEDS: SYNTHROID PO SCH (06:05)
[2019-01-28] MEDS: ZYLOPRIM PO SCH (08:01)
[2019-01-28] MEDS: VITAMIN D PO SCH (08:01)
[2019-01-28] MEDS: LANOXIN PO SCH (08:02)
[2019-01-28] MEDS: FISH OIL CONCENTRATE PO SCH ×2 (08:02→21:17)
[2019-01-28] MEDS: COREG PO SCH ×2 (08:02→21:16)
[2019-01-28 08:03] LABS: BASO# 0.04 X1000 (0.0-0.2); BASO% 0.5 % (0.0-0.8); EOS# 0.15 X1000 (0.0-0.7); EOS% 1.7 % (0.0-10.0); HEMATOCRIT 37.9 % (37.0-47.0); IMM GRAN# 0.19 X1000 (0.0-0.04); IMM GRAN% 2.2 % (0.0-0.5); LYMPH# 1.43 X1000 (1.2-3.4); LYMPH% 16.3 % (20.5-51.1); MCH 30.5 PG (27-31); MCHC 31.7 g/dL (33-37); MCV 96.4 FL (81-99); MONO# 0.94 X1000 (0.11-0.59); MONO% 10.7 % (1.7-9.3); MPV 10.9 FL (7.4-10.4); NEUT# 6.04 X1000 (1.4-6.5); NEUT% 68.6 % (42.2-75.2); PLT 265 X1000 (130-400); RBC 3.93 XMIL (4.2-5.4); RDW 14.8 % (11.5-14.5); WBC 8.79 X1000 (4.8-10.8)
[2019-01-28 08:12] LABS: INR 1.61; PROTIME 19.9 Seconds (11.0-16.0)
--- NOTE | 2019-01-28 10:04 | Diag Imaging Result Doc PS360 ---
EXAM: CT THORAX W/O CONTRAST HISTORY: pneumonitis TECHNIQUE: Emergency CT of the chest without contrast COMPARISON: None. FINDINGS: The heart is markedly enlarged. Mild central vascular prominence. Trace pleural fluid. No thoracic aortic aneurysm. There is a left-sided pacemaker. Small mediastinal nodes. There are patchy infiltrates in the right upper and lower lobes. Atelectasis or scarring in the lower left lung. IMPRESSION: 1.Marked cardiomegaly 2.Multifocal patchy infiltrates This exam was performed using automated exposure control, adjustment of mA or kV according to patient size, and/or use of iterative reconstruction technique. Electronically signed by Octavio Kim 01/28/2019 10:01 AM
--- NOTE | 2019-01-28 12:10 | Diag Imaging Result Doc PS360 ---
EXAM: US GB < RUQ (LIMITED) HISTORY: elevated liver enzymes TECHNIQUE: Emergent Right upper quadrant ultrasound COMPARISON: None. FINDINGS: No abdominal aortic aneurysm. Normal pancreas. Normal inferior vena cava. There is mild fatty infiltration of the liver. No focal hepatic abnormality. The common bile duct measures 3 mm. The gallbladder has been removed. Normal right kidney. No hydronephrosis. No ascites in the right upper quadrant. IMPRESSION: 1.Fatty infiltration of the liver 2.Cholecystectomy Electronically signed by Octavio Kim 01/28/2019 12:08 PM
--- NOTE | 2019-01-28 15:20 | EKG Report ---
Test Performed on : 01/28/2019 10:18:22 AM Test Reason : afib paroxysmal Blood Pressure : / mmHG Vent. Rate : 070 BPM Atrial Rate : 050 BPM P-R Int : 162 ms QRS Dur : 224 ms QT Int : 514 ms P-R-T Axes : 143 -57 103 degrees QTc Int : 555 ms Atrial-paced rhythm Left axis deviation Left ventricular hypertrophy with QRS widening and repolarization abnormality Cannot rule out Anterior infarct , age undetermined Abnormal ECG When compared with ECG of 24-JAN-2019 14:15, (Unconfirmed) Electronic atrial pacemaker has replaced Electronic ventricular pacemaker Unconfirmed Result
[2019-01-28] MEDS: ROCEPHIN 1 GM in NS 50 ML IV SCH (17:12)
[2019-01-28] MEDS: ZITHROMAX PO SCH (17:12)
[2019-01-28] MEDS: COUMADIN PO SCH (21:17)
--- NOTE | 2019-01-28 22:00 | CARDIOLOGY CONSULTATION ---
DATE: 01/28/2019 CONSULTATION REQUESTED BY: Dr. Wander Velasco of hospitalist service. REASON FOR CONSULTATION: Patient on amiodarone with possible amiodarone toxicity, abnormal chest x-ray, question of pneumonitis, congestive heart failure. Chief complaint: cough.dyspnea. HISTORY OF PRESENT ILLNESS: Mrs. Waggoner is an 83-year-old female patient of mine that I saw last time at the office about a month and a half ago. According to the daughter, the patient has been having progressive cough and dyspnea as well as swelling of the lower extremities over the course of 1 week prior to presentation. She came into the ER on January 24. They did a chest x- ray that showed a small right lower lobe infiltrate with cardiomegaly. EKG showed activity of AV sequential pacemaker. Initial proBNP level was elevated at 2940. Troponin has been negative. The patient has not really reported chest pain. Her appetite is not that good. Initial BUN 19, creatinine 1.3. White cell count was 13,120. The initial suspicion was that the patient might have pneumonia, and she has been placed on ceftriaxone and azithromycin. The patient, according to the daughter, seems to have improved a little bit. The cough is not as bad as it was at the time of presentation. The patient is not as swollen as she was initially. Of note, her proBNP has decreased to 1860. Her BUN and creatinine actually remained within good range at 20 and 1.1. PAST MEDICAL HISTORY: Significant for a prior diagnosis of paroxysmal atrial fibrillation. She has chronic congestive heart failure. She has had a biventricular device implanted in July 2014. She has hyperlipidemia. She has hypertension. She had a [id number] degree of mitral regurgitation. She has had a previous embolic stroke with left-sided hemiplegia. The patient, according to the daughter, was admitted to the hospital back in September through October 08 with small bowel obstruction, and at that time we evaluated her. This gradually got better. She was acutely ill at that time. She has a history of shingles on the left side. She has some chronic kidney disease. PAST SURGICAL HISTORY: Positive for appendectomy in the past, hysterectomy, back surgery, kidney cyst removed, implantation of defibrillator and pacemaker. SOCIAL HISTORY: She is . She is retired. She has children. She is not a smoker. FAMILY HISTORY: Positive for heart disease in brother and sister. HOME MEDICATIONS AT THIS TIME: Include the following: She is taking allopurinol 100 daily, amiodarone 200 daily, atorvastatin 20 mg at bedtime, carvedilol 3.125 twice a day, Librium 10 twice a day, vitamin D3 at 1000 units daily, furosemide 20 mg 3 times a day, digoxin 0.125 daily, spironolactone 25, metoprolol 50 mg daily, levothyroxine 50 mcg daily, warfarin alternating 2.5 with 1.25. REVIEW OF SYSTEMS: Just generally decreased functional capacity due to the left hemiplegia. Some chronic cough. No recent issues with the bowels. There are no other positives on the multiple review of systems. PHYSICAL EXAMINATION: Vital signs: Blood pressure 120/67, pulse 66, temperature 97.5, respirations 16. General: She is awake, alert, in no distress. HEENT: Slight prominence of the jugular veins. Chest: Shows some bilateral rhonchi. Cardiovascular: Heart sounds are regular, rhythmic. Soft systolic murmur noted. Abdomen: Soft, not distended. Extremities: Showed decreased pulses, trace edema. Neurological: Nonfocal. She has left hemiplegia. LABORATORY DATA: Blood work: Sodium is 137, potassium 4.5, BUN 20, creatinine 1.1. White cell count 8790, hemoglobin 12 grams, hematocrit 37.9%. A chest x-ray was done 2 days ago. It shows stable cardiomegaly with ill- defined interstitial infiltrate. IMPRESSION: 1. Patient who presented with increasing dyspnea, abnormal chest x-ray, probably a combination of pneumonitis plus congestive heart failure, systolic plus diastolic dysfunction. 2. History of paroxysmal atrial fibrillation. 3. Question of amiodarone toxicity. 4. Hypertension. 5. [id number] mitral regurgitation. 6. s/p Biventricular ICD implantation. RECOMMENDATION: At this point in time, I would agree with continuing your present measures. From my viewpoint, I would probably not make any drastic changes. I would like to check inflammatory markers and a CT scan of the chest to see if there is indeed indication of pneumonitis from amiodarone which has some peculiar pattern that could be picked up. I would probably consider doing a follow-up echocardiogram on her. The last one showed significant impaired ejection fraction; however, at that time, the patient was acutely ill with a small bowel obstruction. We may want to reassess that. We will continue to follow her, and further advice will be forthcoming. Thank you again for the opportunity to participate in her evaluation. cc: Franklyn Yi MD MTDD
[2019-01-29 00:13] LABS: ALBUMIN 2.7 g/dL (3.5-5.0); CALCIUM 8.5 mg/dL (8.8-10.2); CREATININE 0.9 mg/dL (0.5-0.9); POTASSIUM 4.3 mmol/L (3.5-5.1); TOTAL BILIRUBIN 0.2 mg/dL (0.20-1.00); TOTAL PROTEIN 5.9 g/dL (6.3-8.3)
[2019-01-29] MEDS: ROBITUSSIN-DM PO PRN ×2 (03:30→21:15)
[2019-01-29] MEDS: DUONEB (A & A) INH SCH ×5 (03:35→21:02)
--- NOTE | 2019-01-29 05:50 | PROGRESS NOTE ---
DATE: 01/28/2019 SUBJECTIVE: She still seems weak, tired. Breathing is stable, maybe a little bit improved. OBJECTIVE: Vital signs: Blood pressure 150/63, heart rate 78, respiratory rate 18, temperature 97.6 degrees. 98% on 2 L. Cardiovascular: Regular rate and rhythm. Pulmonary: Bilateral breath sounds. Clear to auscultation. Gastrointestinal: Soft, nontender, nondistended. Bowel sounds are positive. LABORATORY DATA: White count 8, hemoglobin and hematocrit 12 and 37, platelets 265,000. INR is 1.6. CRP 115. ProBNP 1860. Chest CT showed multifocal infiltrates and cardiomegaly. PROBLEM LIST: 1. Acute respiratory failure secondary to pneumonia. Continue empiric antibiotics, breathing treatments, and follow. 2. Elevated liver enzymes. Ultrasound is more consistent with steatohepatitis. I have stopped her amiodarone and statin. Dr. Yi is following the patient. We will discuss about long-term amiodarone cessation. She is on Coreg and digoxin. Lopressor was listed as an outpatient medication, for which she was also on Coreg. I am not sure if she was taking both, but we will leave her on Coreg. Her heart rate is controlled at the time. She is on anticoagulation, although subtherapeutic. 3. Hypothyroidism. Stable currently. 4. Right lower lobe pneumonia. Continue antibiotics. DISPOSITION: She is weak but she has progressed with PT. Hopefully, we can start to work on discharge home. Need to make sure she gets up and see how she does. cc: Wander Velasco MD
[2019-01-29] MEDS: SYNTHROID PO SCH (06:05)
[2019-01-29 07:33] LABS: BASO# 0.03 X1000 (0.0-0.2); BASO% 0.3 % (0.0-0.8); EOS# 0.12 X1000 (0.0-0.7); EOS% 1.2 % (0.0-10.0); HEMOGLOBIN 11.7 g/dL (12.0-16.0); IMM GRAN# 0.37 X1000 (0.0-0.04); IMM GRAN% 3.8 % (0.0-0.5); LYMPH# 1.49 X1000 (1.2-3.4); LYMPH% 15.2 % (20.5-51.1); MCH 30.7 PG (27-31); MCHC 31.6 g/dL (33-37); MCV 97.1 FL (81-99); MONO# 0.91 X1000 (0.11-0.59); MONO% 9.3 % (1.7-9.3); MPV 10.5 FL (7.4-10.4); NEUT# 6.89 X1000 (1.4-6.5); NEUT% 70.2 % (42.2-75.2); PLT 274 X1000 (130-400); RBC 3.81 XMIL (4.2-5.4); WBC 9.81 X1000 (4.8-10.8)
[2019-01-29 08:01] LABS: INR 1.69; PROTIME 20.7 Seconds (11.0-16.0)
[2019-01-29] MEDS: COREG PO SCH ×2 (09:01→21:10)
[2019-01-29] MEDS: LANOXIN PO SCH (09:01)
[2019-01-29] MEDS: FISH OIL CONCENTRATE PO SCH ×2 (09:01→21:11)
[2019-01-29] MEDS: VITAMIN D PO SCH (09:02)
[2019-01-29] MEDS: ZYLOPRIM PO SCH (09:02)
--- NOTE | 2019-01-29 16:08 | PROGRESS NOTE ---
DATE: 01/29/2019 SUBJECTIVE: Patient has no focal complaints. OBJECTIVE: Vital Signs: 127/62, heart rate 69, respiratory rate 18, temperature 98.1, 94% on 3 L. General: To me today she seems a lot more awake, alert, not as lethargic. Cardiovascular: Irregularly irregular. Pulmonary: Bilateral breath sounds clear to auscultation with some occasional rales at the bases. Gastrointestinal: Soft, nontender, nondistended. Bowel sounds are positive. LABORATORY DATA: White count 9, hemoglobin and hematocrit 11 and 37, platelets 274,000. INR is 1.69. CRP was 115. ProBNP 1860. PROBLEM LIST: 1. Pneumonia, bilateral. We will continue empiric antibiotics. She is currently on azithromycin and Rocephin, and seems to be clinically improving. Chest CT was more consistent with pneumonia than other etiologies which amiodarone toxicity was a concern, although mostly hepatotoxicity. 2. Elevated liver enzymes. She has steatohepatitis based on her ultrasound. I have stopped her amiodarone and statin. As far as I can tell, Dr. Bush agrees with that for the time being. Will repeat her liver enzymes tomorrow and see if anything changes. 3. Atrial fibrillation is rate controlled on her current medications despite stopping the amiodarone. She is also on Coumadin and we are going to continue anticoagulation. I am going to just leave her on 2.5 for now until we can get her therapeutic, and then it can be adjusted accordingly afterwards. DISPOSITION: She actually did fairly well with PT, a lot better than I thought she would. So, anticipate she can go home at discharge which is her preference, so that may be in another day or two. I would like PT to work with her at least one more time so we will see how she does. cc: Wander Velasco MD
[2019-01-29] MEDS: ROCEPHIN 1 GM in NS 50 ML IV SCH (17:34)
[2019-01-29] MEDS: ZITHROMAX PO SCH (17:34)
[2019-01-29] MEDS ORDERED: COUMADIN PO SCH (21:00)
[2019-01-30] MEDS: DUONEB (A & A) INH SCH ×7 (01:10→22:34)
[2019-01-30] MEDS: ROBITUSSIN-DM PO PRN ×4 (01:49→20:54)
[2019-01-30] MEDS: SYNTHROID PO SCH (06:02)
[2019-01-30 07:06] LABS: BASO# 0.04 X1000 (0.0-0.2); BASO% 0.4 % (0.0-0.8); HEMATOCRIT 36.2 % (37.0-47.0); HEMOGLOBIN 11.6 g/dL (12.0-16.0); IMM GRAN# 0.34 X1000 (0.0-0.04); IMM GRAN% 3.5 % (0.0-0.5); LYMPH# 1.71 X1000 (1.2-3.4); LYMPH% 17.8 % (20.5-51.1); MCH 30.9 PG (27-31); MCV 96.5 FL (81-99); MONO# 0.76 X1000 (0.11-0.59); MONO% 7.9 % (1.7-9.3); MPV 9.8 FL (7.4-10.4); NEUT# 6.66 X1000 (1.4-6.5); NEUT% 69.4 % (42.2-75.2); PLT 291 X1000 (130-400); RBC 3.75 XMIL (4.2-5.4); WBC 9.61 X1000 (4.8-10.8)
[2019-01-30 07:08] LABS: AGAP 9; ALBUMIN 2.9 g/dL (3.5-5.0); ALKALINE PHOSPHATASE 75 U/L (32-104); BUN 20 mg/dL (8-22); CALCIUM 8.6 mg/dL (8.8-10.2); CHLORIDE 104 mmol/L (98-107); COSMO 281; CREATININE 0.9 mg/dL (0.5-0.9); DIRECT BILIRUBIN < 0.20 mg/dL (0.00-0.20); ESTIMATED GFR 60; GLUCOSE 149 mg/dL (70-104); GOT 58 U/L (10-30); GPT 110 U/L (10-36); SODIUM 138 mmol/L (136-145); TCO2 25 mmol/L (25-35); TOTAL PROTEIN 6.1 g/dL (6.3-8.3)
[2019-01-30 07:11] LABS: INR 1.63; PROTIME 20.1 Seconds (11.0-16.0)
[2019-01-30 08:17] LABS: LYMPHS 18 % (21-51); SEGS 72 % (42-75)
[2019-01-30 08:18] LABS: EOS 1 % (1-10); MONO 9 % (1-9)
--- NOTE | 2019-01-30 08:25 | ECHO REPORT ---
ORDER DATE: 01/29/2019 INTERPRETING PHYSICIAN: Dr. Yi REQUESTING PHYSICIAN: Dr. Velasco and Dr. Yi CLINICAL INDICATIONS: This is an 83-year-old female with pneumonia, CHF. M-MODE MEASUREMENTS: Right ventricle: cm. Left ventricle end diastole: 5.5 cm. Left ventricle end systole: 4.2 cm. Posterior wall: 1.0 cm. Interventricular septum: 1.0 cm. Left atrium: 4.9 cm. Aortic root: 2.8 cm. SUMMARY OF 2-DIMENSIONAL IMAGIN. This study is very difficult. The acoustic windows are very poor. The global ejection fraction is moderately impaired. Visually it appears to be in the order of 35% to 40%. There is akinesis of the entire inferior wall, and there is atypical contractility of the interventricular septum with hypokinesis. 2. Aortic valve shows sclerosis of the cusps with a maximum gradient of 24 mmHg, mean gradient is 9 mmHg. Color flow mapping shows a mild to moderate degree of regurgitation. 3. Mitral annulus shows moderate calcification. Color flow mapping of mitral valve indicates moderate degree of regurgitation. The patient is in atrial fibrillation. 4. The pulse wave Doppler of mitral inflow shows a single filling wave. 5. Diastolic function cannot be properly evaluated. 6. The tricuspid valve shows moderately severe degree of regurgitation. 7. A pacemaker lead is noted within the right-sided chambers. 8. The pulmonary pressure is seemingly elevated in the order of 47 mmHg. 9. The pulmonic valve was suboptimally visualized. Its Doppler pattern appears to be grossly within normal range. 10.There is no pericardial effusion, mass or thrombus. Clinical correlation is recommended. cc: MD Wander Delarosa MD
[2019-01-30] MEDS: VITAMIN D PO SCH (09:44)
[2019-01-30] MEDS: OMNICEF PO SCH ×2 (09:44→20:53)
[2019-01-30] MEDS: LANOXIN PO SCH (09:45)
[2019-01-30] MEDS: ZYLOPRIM PO SCH (09:46)
[2019-01-30] MEDS: FISH OIL CONCENTRATE PO SCH ×2 (09:46→20:53)
[2019-01-30] MEDS: COREG PO SCH ×2 (09:46→20:53)
[2019-01-30] MEDS: ALDACTONE PO SCH (09:59)
[2019-01-30] MEDS: ZITHROMAX PO SCH (17:04)
[2019-01-30] MEDS ORDERED: COUMADIN PO SCH (21:00)
[2019-01-31] MEDS: DUONEB (A & A) INH SCH ×4 (03:28→15:37)
[2019-01-31] MEDS: SYNTHROID PO SCH (06:07)
[2019-01-31 07:02] LABS: INR 1.77; PROTIME 21.5 Seconds (11.0-16.0)
--- NOTE | 2019-01-31 08:17 | Extremity Venous Study ---
EXAM: Venous U/S Left Arm HISTORY: swelling TECHNIQUE: Routine. COMPARISON: None. FINDINGS: The deep veins of the left upper extremity demonstrate appropriate compressibility and augmentation. No intraluminal thrombus is visualized. There is no evidence for DVT. The superficial veins are patent. IMPRESSION: No evidence for deep venous thrombosis left upper extremity. Electronically signed by Echo Whitehead 01/31/2019 8:14 AM
--- NOTE | 2019-01-31 08:19 | Extremity Venous Study ---
EXAM: Venous U/S Bilateral Legs HISTORY: edema/?dvt TECHNIQUE: Kwok scale, color Doppler, and duplex evaluation was performed. COMPARISON: None. FINDINGS: The deep veins of the bilateral lower extremities demonstrate appropriate compressibility and augmentation. No intraluminal thrombus is visualized. There is no evidence for DVT. The superficial veins appear patent. IMPRESSION: No evidence for deep venous thrombosis bilateral lower extremities. Electronically signed by Echo Whitehead 01/31/2019 8:17 AM
[2019-01-31] MEDS: COREG PO SCH (09:38)
[2019-01-31] MEDS: FISH OIL CONCENTRATE PO SCH (09:39)
[2019-01-31] MEDS: LANOXIN PO SCH (09:39)
[2019-01-31] MEDS: VITAMIN D PO SCH (09:39)
[2019-01-31] MEDS: OMNICEF PO SCH (09:41)
[2019-01-31] MEDS: ZYLOPRIM PO SCH (09:41)
[2019-01-31] MEDS: ROBITUSSIN-DM PO PRN ×2 (09:41→15:53)
[2019-01-31] MEDS: ZITHROMAX PO SCH (16:33)
[2019-01-31 16:36] VITALS: BP 120/65
--- NOTE | 2019-02-01 00:28 | DISCHARGE SUMMARY ---
ADMISSION DATE: 01/24/2019 DISCHARGE DATE: 01/31/2019 DISCHARGE DIAGNOSIS: 1. Pneumonia bilaterally, improved. 2. Elevated liver enzymes, improved. 3. Atrial fibrillation, rate controlled, currently on Coumadin. 4. Congestive heart failure with an ejection fraction of 35%. CONSULTATION: None. PROCEDURE: None. HOSPITAL COURSE: The patient is an 83-year-old female presented to the hospital treated in usual fashion placed on antibiotics, which she continued to improve. Today will actually be a full 7- day course of antibiotics and therefore will stop. Her INR remains slightly low. She had been on amiodarone and on antibiotics. Her amiodarone has been stopped. Antibiotics certainly can negatively affect her INR. Therefore, we will not attempt to get it completely back to normal as we are stopping her antibiotics today and we will have to adjust her INR from home. DISPOSITION: Patient will follow up outpatient with her primary care to recheck her INR in 2 days. Her amiodarone has been held due to steatohepatitis as well as her statin has been held. She did have a CVA in 2006. Assuming that her liver functions remaining stable, she can certainly start back on her statin at home. TIME SPENT: Greater than 30 minutes was spent in total care. cc: Vasile Centeno MD
== END 2019-01-31 19:00 | disposition home or self-care (01) | DRG 194 ==
LOC: P.ED 14:08 → P.MEDSURG 18:04 → SUATTDRO 18:04
PROVIDERS: ATTEND Family Medicine
CPT/HCPCS: 71010; 71020; 71045; 71046; 71250; 76705; 80048; 80053; 80076; 80162; 82550; 83880; 84145; 84484; 85025; 85610; 85651; 85730; 86140; 87040; 87070; 87205; 89220; 93005; 93306; 93970; 93971; 94640; 94761; 94799; 96365; 97110; 97116; 97161; 97530; 99285; A9270; J0456; J0696; J1650; J7030